=== PATIENT | male | born 1960 | race Caucasian/White ===

== ENCOUNTER → 2018-01-03 11:48 | Outpatient (CLI) | payer MEDICARE, MEDICAID, SELFPAY ==
[2018-01-03 13:18] LABS: Absolute Lymphocyte Count 1.21 X10^3/ul (0.83-4.51); Absolute Neutrophil Count 6.7 X10^3/uL (2.0-7.7); Basophil# 0.05 X10^3/uL; Basophil% 0.5 % (0-1); Eosinophil# 0.07 X10^3/uL; Eosinophils% 0.8 % (0-5); Hematocrit 40.9 % (40-54); Hemoglobin 13.3 g/dl (13.0-16.5); Lymphocyte # 1.21 X10^3/ul (4.0); Lymphocyte % 13.2 % (19-41); Mean Corp Hgb Conc 32.5 g/gl (32-36); Mean Corpuscular Hgb 34.2 pg (27.0-32.0); Mean Corpuscular Volume 105.1 fL (80-94); Mean Platelet Vol. 9.9 fl (6.2-12.0); Monocyte# 1.04 X10^3/uL; Monocyte% 11.4 % (0-10); Neutrophil # 6.73 X10^3/uL (2.7-7.7); Neutrophil % 73.7 % (47-70); Platelet Count 174 K/mm3 (150-450); RBC Distribution Width CV 14.8 % (11.6-14.6); RBC Distribution Width SD 56.9 fl (35.1-43.9); Red Blood Count 3.89 M/mm3 (4.6-6.2); White Blood Count 9.1 K/mm3 (4.4-11.0)
[2018-01-03 13:29] LABS: POSITIVE COUNT NO; POSITIVE DIFFERENTIAL NO; POSITIVE MORPHOLOGY NO
[2018-01-03 13:39] LABS: ALB/GLOB Ratio 1.1 RATIO (0.9-2.4); AST(SGOT) 29 U/L (15-37); Alanine Aminotransfer ALT/SGPT 33 U/L (16-61); Albumin, Serum 3.4 g/dL (3.2-5.0); Alkaline Phosphatase 87 U/L (45-117); Anion Gap 4 (5-15); BUN 21 mg/dL (7-18); BUN/Creat Ratio 20.4 RATIO (10-20); Chloride 106 mmol/L (98-107); Creatinine, Serum 1.03 mg/dL (0.70-1.30); EST Glomerular Filtration Rate 79 mL/min (>60); Est Glom Filt Rate - Afr Amer 96 mL/min (>60); Globulin 3.1 g/dL (2.2-4.2); Glucose 89 mg/dL (74-106); Potassium 4.5 mmol/L (3.5-5.1); Protein, Total 6.5 g/dL (6.4-8.2); Sodium Level 143 mmol/L (136-145); Thyroid Stim Hormone (TSH) 2.19 uIU/mL (0.358-3.74)
== END ==
PROVIDERS: Family Provider Family Medicine Geriatric Medicine; PCP Family Medicine Geriatric Medicine; Visit Provider Family Medicine Geriatric Medicine
DX: R53.83 Other fatigue (principal)
CPT/HCPCS: 36415; 80053; 84443; 85025

== ENCOUNTER → 2018-07-06 14:35 | Outpatient (CLI) | payer MEDICARE, MEDICAID, SELFPAY ==
[2018-07-06 16:15] LABS: Absolute Lymphocyte Count 1.03 X10^3/ul (0.83-4.51); Absolute Neutrophil Count 4.8 X10^3/uL (2.0-7.7); Basophil# 0.07 X10^3/uL; Eosinophil# 0.06 X10^3/uL; Eosinophils% 0.9 % (0-5); Hemoglobin 13.2 g/dl (13.0-16.5); Lymphocyte # 1.03 X10^3/ul (4.0); Lymphocyte % 14.9 % (19-41); Mean Corpuscular Hgb 35.3 pg (27.0-32.0); Mean Platelet Vol. 10.5 fl (6.2-12.0); Monocyte# 0.84 X10^3/uL; Monocyte% 12.1 % (0-10); Neutrophil # 4.84 X10^3/uL (2.7-7.7); Neutrophil % 69.9 % (47-70); Platelet Count 200 K/mm3 (150-450); RBC Distribution Width SD 50.3 fl (35.1-43.9); Red Blood Count 3.74 M/mm3 (4.6-6.2); White Blood Count 6.9 K/mm3 (4.4-11.0)
[2018-07-06 16:21] LABS: POSITIVE COUNT NO; POSITIVE DIFFERENTIAL NO; POSITIVE MORPHOLOGY NO
[2018-07-06 17:08] LABS: ALB/GLOB Ratio 0.9 RATIO (0.9-2.4); AST(SGOT) 31 U/L (15-37); Alanine Aminotransfer ALT/SGPT 31 U/L (16-61); Albumin, Serum 3.1 g/dL (3.2-5.0); Alkaline Phosphatase 69 U/L (45-117); Anion Gap 11 (5-15); BUN 14 mg/dL (7-18); BUN/Creat Ratio 13.2 RATIO (10-20); Calcium,Total 8.4 mg/dL (8.5-10.1); Chloride 107 mmol/L (98-107); Creatinine, Serum 1.06 mg/dL (0.70-1.30); EST Glomerular Filtration Rate 77 mL/min (>60); Est Glom Filt Rate - Afr Amer 93 mL/min (>60); Globulin 3.6 g/dL (2.2-4.2); Glucose 86 mg/dL (74-106); Potassium 4.5 mmol/L (3.5-5.1); Protein, Total 6.7 g/dL (6.4-8.2); Sodium Level 146 mmol/L (136-145); Thyroid Stim Hormone (TSH) 1.95 uIU/mL (0.358-3.74)
== END ==
PROVIDERS: Family Provider Family Medicine Geriatric Medicine; PCP Family Medicine Geriatric Medicine; Visit Provider Family Medicine Geriatric Medicine
DX: R53.83 Other fatigue (principal)
CPT/HCPCS: 36415; 80053; 84443; 85025

== ENCOUNTER → 2018-08-07 11:52 | Outpatient (CLI) | payer MEDICARE, MEDICAID, SELFPAY ==
--- NOTE | 2018-08-07 11:59 | VDLE_ITS ---
Reason For Study: LEG SWELLING RIGHT LEFT CFV is compressible, spontaneous, phasic, GSV is normal. competent and demonstrates normal CFV is partially compressible with augmentation. intraluminal echoes Procedure FV, POP V and T/P trunk are non-compressible Exam performed in department. with intraluminal echoes and absent blood A preliminary report was called and/or faxed flow signal. to Jhoana Painter. PTV is compressible. LT PerV is compressible. Interpretation Summary Acute deep vein thrombosis is noted in the left common femoral vein. Acute deep vein thrombosis is noted in the left femoral vein. Acute deep vein thrombosis is noted in the left popliteal vein. Acute deep vein thrombosis is noted in the left tibio-peroneal trunk. The left posterior tibial vein and peroneal vein are patent and compressible. The left greater saphenous vein appears patent and compressible segmentally. Ordering Physician: Mar Painter Referring Physician: Willard Delgadillo Chi Performed By: Fara Nieto RVT
== END ==
PROVIDERS: Family Provider Family Medicine Geriatric Medicine; PCP Family Medicine Geriatric Medicine
DX: R60.0 Localized edema (principal)
CPT/HCPCS: 93971

== ENCOUNTER 2018-08-07 12:51 | Emergency (ER) | payer MEDICARE, MEDICAID, SELFPAY ==
[2018-08-07 12:52] VITALS: BP 149/73; PULSE 56; RESP 12; TEMP 36.3; O2SAT 100; BMI 30.5
--- NOTE | 2018-08-07 13:50 | ED.VISSUMM ---
- ER Visit Summary Date of Service: 08/07/18 Chief Complaint: DVT History of Present Illness: The patient is a 57 M who per family had intermittent left ankle and leg swelling for the past several years. He has had worsening leg swelling for the past several months. Mom states it especially gets worse with activity and better with rest. He was seen by a childhood teacher today it was to orthopedics. An outpatient DVT study was ordered and positive. Patient was sent to the ER. Past history significant for reflux disease and Down syndrome. Physical Examination: Blood pressure is 149/73, temperature 97.3, heart rate 56, respiratory rate 12, pulse ox 100% on room air. Patient sitting upright in bed no acute distress. Heart is regular rate and rhythm. Lung sounds are clear. Abdomen is soft and nontender. Lower extremity examination reveals 2+ left lower extremity edema. Compression stockings in place. Strong distal pulses are noted. There is no focal neurologic deficits. Test Results: I did review the DVT study. Common femoral vein on the left is partially compressible with intraluminal echoes. The femoral vein, popliteal vein, and TP trunk are noncompressible. Emergency Department Course and Treatment: Patient had normal laboratory work performed approximately 1 month ago. I spoke with the patient's primary care physician, Dr. Delgadillo, who had not been made aware of these DVT findings. Patient be started on Xarelto and will follow up with Dr. Delgadillo in the office. I also spoke with social work who verified that his insurance will cover Xarelto. Treatment Plan: [] Disposition: Discharge Impression: Left leg DVT This note was generated with [employer] dictation software. It may contain incorrect words, spelling, and punctuation that were not noted in review of the chart prior to signing ED Disposition - Plan for ED Patient: Disposition: Home or Assisted Living Chief Complaint: Abn Labs Instructions: ED DVT Prescriptions: Rivaroxaban [Xarelto] 15 mg PO BID #42 tablet Referrals: Willard Delgadillo Chi, MD [Primary Care Provider] - 1 Week
[2018-08-07] MEDS: Rivaroxaban 15 MG Tablet PO (14:02)
[2018-08-07 14:03] VITALS: BP 140/86; PULSE 56; RESP 18; O2SAT 98
== END 2018-08-07 14:10 | disposition home or self-care (01) ==
PROVIDERS: Emergency Provider Emergency Medicine; Family Provider Family Medicine Geriatric Medicine; PCP Family Medicine Geriatric Medicine
DX: I82.412 Acute embolism and thrombosis of left femoral vein (principal); Q90.9 Down syndrome, unspecified; K21.9 Gastro-esophageal reflux disease without esophagitis; R60.0 Localized edema; Z86.718 Personal history of other venous thrombosis and embolism; Z79.899 Other long term (current) drug therapy
CPT/HCPCS: 93971; 99283

== ENCOUNTER → 2018-10-19 11:16 | Outpatient (CLI) | payer MEDICARE, MEDICAID, SELFPAY ==
--- NOTE | 2018-10-19 11:20 | VDLE_ITS ---
Reason For Study: Swelling - f/U DVT LLE RIGHT LEFT GSV is normal. GSV is normal. CFV is compressible, spontaneous, phasic, CFV is partially compressible with competent and demonstrates normal intraluminal echoes and normal color flow augmentation. and doppler signal. FVand POP Vare patent,compressible, FV, POP Vand T/P trunk are non- spontaneous, phasic and demonstrate compressible, non dilated with intraluminal INCOMPETENCY with augmentation. echoes and absent color flow and doppler T/P Trunk is compressible. signal. PTV is compressible. PTV is compressible. RT PerV is compressible. LT PerV is compressible. Procedure Exam performed in department. A preliminary report was called and/or faxed to Dr. Delgadillo. Interpretation Summary Chronic venous changes are noted in the left common femoral vein, femoral vein, popliteal vein, and tibio-peroneal trunk. The left femoral vein, popliteal vein, and tibio-peroneal trunk remain non- compressible and devoid of flow. The left posterior tibial vein and peroneal vein are patent and compressible. Deep veins of the right lower extremity are patent and compressible segmentally. There is no evidence of right lower extremity deep vein thrombosis. The right femoral vein and popliteal vein are incompetent. The great saphenous veins are patent and compressible bilaterally. Ordering Physician: Willard Delgadillo Referring Physician: Willard Delgadillo Chi Performed By: Fara Nieto RVT
[2018-10-19 12:35] LABS: Absolute Lymphocyte Count 1.17 X10^3/ul (0.83-4.51); Absolute Neutrophil Count 3.5 X10^3/uL (2.0-7.7); Basophil# 0.05 X10^3/uL; Basophil% 0.9 % (0-1); Eosinophil# 0.04 X10^3/uL; Eosinophils% 0.7 % (0-5); Hematocrit 41.5 % (40-54); Hemoglobin 13.9 g/dl (13.0-16.5); Lymphocyte # 1.17 X10^3/ul (4.0); Lymphocyte % 20.7 % (19-41); Mean Corp Hgb Conc 33.5 g/gl (32-36); Mean Corpuscular Volume 104.5 fL (80-94); Monocyte# 0.86 X10^3/uL; Monocyte% 15.2 % (0-10); Neutrophil # 3.52 X10^3/uL (2.7-7.7); Neutrophil % 62.1 % (47-70); Platelet Count 212 K/mm3 (150-450); RBC Distribution Width CV 13.6 % (11.6-14.6); RBC Distribution Width SD 51.5 fl (35.1-43.9); Red Blood Count 3.97 M/mm3 (4.6-6.2); White Blood Count 5.7 K/mm3 (4.4-11.0)
[2018-10-19 12:38] LABS: POSITIVE COUNT NO; POSITIVE DIFFERENTIAL NO; POSITIVE MORPHOLOGY NO
[2018-10-19 12:44] LABS: Anion Gap 7 (5-15); BUN 17 mg/dL (7-18); Calcium,Total 8.4 mg/dL (8.5-10.1); Chloride 106 mmol/L (98-107); Creatinine, Serum 1.06 mg/dL (0.70-1.30); EST Glomerular Filtration Rate 77 mL/min (>60); Est Glom Filt Rate - Afr Amer 93 mL/min (>60); Glucose 95 mg/dL (74-106); Potassium 4.4 mmol/L (3.5-5.1); Sodium Level 142 mmol/L (136-145)
== END ==
PROVIDERS: Family Provider Family Medicine Geriatric Medicine; PCP Family Medicine Geriatric Medicine; Referring Provider Family Medicine Geriatric Medicine; Visit Provider Family Medicine Geriatric Medicine
DX: R60.0 Localized edema (principal)
CPT/HCPCS: 36415; 80048; 85025; 93970

== ENCOUNTER → 2018-10-27 11:10 | Outpatient (CLI) | payer MEDICARE, MEDICAID, SELFPAY ==
[2018-10-27 12:27] LABS: Absolute Lymphocyte Count 1.12 X10^3/ul (0.83-4.51); Absolute Neutrophil Count 4.3 X10^3/uL (2.0-7.7); Basophil# 0.06 X10^3/uL; Eosinophil# 0.02 X10^3/uL; Eosinophils% 0.3 % (0-5); Hematocrit 43.4 % (40-54); Hemoglobin 14.6 g/dl (13.0-16.5); Lymphocyte # 1.12 X10^3/ul (4.0); Lymphocyte % 17.8 % (19-41); Mean Corp Hgb Conc 33.6 g/gl (32-36); Mean Corpuscular Hgb 34.8 pg (27.0-32.0); Mean Corpuscular Volume 103.6 fL (80-94); Mean Platelet Vol. 10.1 fl (6.2-12.0); Monocyte% 12.7 % (0-10); Neutrophil # 4.26 X10^3/uL (2.7-7.7); Neutrophil % 67.7 % (47-70); Platelet Count 221 K/mm3 (150-450); RBC Distribution Width CV 13.2 % (11.6-14.6); RBC Distribution Width SD 49.2 fl (35.1-43.9); Red Blood Count 4.19 M/mm3 (4.6-6.2); White Blood Count 6.3 K/mm3 (4.4-11.0)
[2018-10-27 12:48] LABS: POSITIVE COUNT NO; POSITIVE DIFFERENTIAL NO; POSITIVE MORPHOLOGY NO
[2018-10-27 14:04] LABS: Anion Gap 8 (5-15); BUN 19 mg/dL (7-18); BUN/Creat Ratio 15.6 RATIO (10-20); Calcium,Total 8.6 mg/dL (8.5-10.1); Chloride 103 mmol/L (98-107); Creatinine, Serum 1.22 mg/dL (0.70-1.30); EST Glomerular Filtration Rate 65 mL/min (>60); Est Glom Filt Rate - Afr Amer 79 mL/min (>60); Glucose 103 mg/dL (74-106); Potassium 4.3 mmol/L (3.5-5.1); Sodium Level 141 mmol/L (136-145)
--- OUTSIDE RECORDS SUMMARY | 2018-12-13 03:55 | XMS RPT_ITS ---
:1960 Author Organization OHIP Support Name Relationship Address Phone JERONIMO DAVENPORT/PITER Unavailable [address] + [place] [address] [employer] Unavailable [address] + [place] [address] ISSAC, JERONIMO/PITER Unavailable [address] + [place] [address] [employer] Unavailable [address] + [place] [address] ISSAC, JERONIMO/PITER Unavailable [address] + [place] [address] [employer] Unavailable [address] + [place] [address] ISSAC, JERONIMO/PITER Unavailable [address] + [place] [address] [employer] Unavailable [address] + [place] [address] ISSAC, JERONIMO/PITER Unavailable [address] + [place] [address] [employer] Unavailable [address] + [place] [address] ISSAC, JERONIMO/PITER Unavailable [address] + [place] [address] [employer] Unavailable [address] + [place] [address] ISSAC, JERONIMO/PITER Unavailable [address] + [place] [address] [employer] Unavailable [address] + [place] [address] ISSAC, JERONIMO/PITER Unavailable [address] + [place] [address] [employer] Unavailable [address] + [place] [address] Care Team Providers Name Role Phone Elie, Willard Chi Attending Unavailable Elie, Willard Chi Referring Unavailable Elie, Willard Chi Primary Care Unavailable Elie, Willard Chi Attending Unavailable Elie, Willard Chi Primary Care Unavailable Elie, Willard Chi Attending Unavailable Elie, Willard Chi Primary Care Unavailable Elie, Willard Chi Attending Unavailable Elie, Willard Chi Primary Care Unavailable JASWINDER SHERIDAN Attending Unavailable JASWINDER SHERIDAN Referring Unavailable Elie, Willard Chi Primary Care Unavailable JASWINDER SHERIDAN Consulting Unavailable Elie, Willard Chi Primary Care Unavailable Serg Egan Attending Unavailable Elie, Willard Chi Primary Care Unavailable Monique Alfonso Attending Unavailable Elie, Willard Chi Attending Unavailable Elie, Willard Chi Referring Unavailable Elie, Willard Chi Primary Care Unavailable PROBLEMS PROBLEMS DATE TYPE CONDITION / CODE ATTENDING STATUS SOURCE 10/19/2018 Unknown R60.0 - Localized Elie, Willard Chi Active [place] edema / Community R60.0(ICD-10) Hospital Repository 10/19/2018 Unknown R60.9 - Edema, Elie, Willard Chi Active [place] unspecified / Community R60.9(ICD-10) Hospital Repository 08/07/2018 Unknown Z86.718 - JASWINDER SHERIDAN Active [place] Personal history Community of other venous Hospital thrombosis and Repository embolism / Z86.718(ICD-10) 01/03/2018 Unknown R53.83 - Other Elie, Willard Chi Active [place] fatigue / Community R53.83(ICD-10) Hospital Repository PROCEDURES PROCEDURES No Procedure Records FoundRESULTS RESULTS EMERGENCY DEPARTMENT Observed: 11/11/2018 Status: F Source: [place] SUMMARY 3:55 PM [facility] HOSPITAL REPOSITORY [facility] Medical Records Department [address] [place] [address] Emergency Department Summary 11/11/18 1011 MR#: [id number] Acct: [id number] Name: PAWAN DAVENPORT Rep #: [id number] : 1960 58 From: Serg Egan MD PCP: Willard Delgadillo MD, Chi Status: DEP ER - ER Visit Summary Date of Service: 11/11/18 Chief Complaint: Nausea, vomit History of Present Illness: The patient is a 58 M presents to the emergency department nausea and vomiting. The patient is otherwise healthy. He does have a history of Down syndrome, but has had no prior abdominal surgery. Mother states that after [place], he had 3 episodes of vomiting. He was then complaining of being dizzy. States the vomiting stopped and he seemed to do okay, but then began to vomit again yesterday. He had 3 more episodes. He still moving his bowels without issue. He just told that he felt lightheaded. He has not had fevers or chills. He denies any significant pain. There is been no blood in the emesis. He is on Eliquis for history of DVT, but has been taking it without issue. 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 He has not had fevers or chills. I obtained an abdominal series which showed no evidence of obstruction. His labs are unremarkable. Of fluids and Zofran, he was improved but was still complaining of dizziness. With his vomiting and the fact that he is on anticoagulants, I did want to rule out acute intracranial abnormality. Head CT was obtained which was unremarkable. On reevaluation with meclizine, he states that his dizziness has resolved. I do not suspect posterior stroke or other dangerous process. I do feel that the patient is a for outpatient therapy. He was able to ambulate. The patient be discharged home. Treatment Plan: [] Disposition: Discharge Impression: 1. Nausea and vomiting This note was generated with Hojo.plation software. It may contain incorrect words, spelling, and punctuation that were not noted in review of the chart prior to signing ED Disposition - Plan for ED Patient: Disposition: Home or Assisted Living Chief Complaint: Abd Pain Instructions: ED Dizziness UKO, ED Nausea Vomiting Prescriptions: RX: Meclizine HCl 25 mg PO Q8H PRN PRN #30 tab PRN Reason: Dizziness Ondansetron [Zofran Odt] 4 mg PO Q8H PRN PRN #10 tab PRN Reason: Nausea Referrals: Willard Delgadillo Chi, MD [Primary Care Provider] - What to do if you have Problems For any increased pain, shortness of breath, bleeding, nausea or vomiting, chest pain, or any unexpected problems, contact your Primary Care Provider. Call [facility] ([phone]) or report to the closest Emergency Room. Call 911 if necessary. 11/11/18 1555 <Electronically signed by Serg Egan MD> Date Serg Egan MD Cosigner Signature (If Indicated): Date CC: Willard Delgadillo MD BRAIN/HEAD WITHOUT Observed: 11/11/2018 Status: F Source: [facility] CONTRAST 11:18 AM [facility] REPOSITORY [facility] Imaging Services [address] [place] [address] Brain/Head without Contrast MR#: [id number] Acct: [id number] Name: PAWAN DAVENPORT Rep #: [id number] : 1960 58 From: Nino Harrington MD PCP: Willard Delgadillo MD, Chi Status: REG ER Study: Brain/Head without Contrast Date of Exam: 11/11/18 Exam# [id number] Ordering Dr: Serg Egan MD STUDY: CT BRAIN WITHOUT CONTRAST REASON FOR EXAM: Male, 58 years old. Dizziness and vomiting. RADIATION DOSAGE (If Supplied By Facility): CTDIvol = ( 44.99 ) mGy, DLP = ( 745.49 ) mGycm TECHNIQUE: Transaxial CT imaging of the brain was performed without administration of intravenous contrast material. Individualized dose optimization techniques were used for this CT. COMPARISON: None. FINDINGS: Normal soft tissue structures. Normal calvarium. Normal size ventricles and extra-axial spaces for the patient's age. Normal white matter tracts of the cerebral hemispheres. Normal basal ganglia and thalami. Normal brainstem. Normal cerebellum. There is no intracranial hemorrhage. There are no findings of an acute ischemic infarction. Normal visualized paranasal sinuses. CT/Brain/Head without Contrast IMPRESSION: Normal unenhanced CT scan of the brain. Electronically Signed: Nino Harrington MD at 11:50 EST , Service support , CC: Serg Egan MD; Willard Delgadillo MD Conference Director: Signed CBC W/DIFF, AUTOMATED Collected: 11/11/2018 Status: F Source: [place] 10:20 AM [facility] REPOSITORY TYPE CODE TESTS RESULT OUT OF RANGE REFERENCE UNITS LAB L100.1000 4.4-11.0 K/mm3 Normal WBC 6.2 LAB L100.1200 4.6-6.2 M/mm3 Low RBC 4.33 LAB L100.1300 13.0-16.5 g/dl Normal HGB 15.6 LAB L100.1400 40-54 % Normal HCT 43.7 LAB L100.1500 80-94 fL High MCV 100.9 LAB L100.1600 27.0-32.0 pg High MCH 36.0 LAB L100.1700 32-36 g/gl Normal MCHC 35.7 LAB L100.1810 11.6-14.6 % Normal RDW CV 13.1 LAB L100.1820 35.1-43.9 fl High RDW SD 48.6 LAB L100.1900 150-450 K/mm3 Normal PLT 243 LAB L100.2000 6.2-12.0 fl Normal MPV 9.3 LAB L100.2100 47-70 % Normal NEUT% 56.9 LAB L100.2200 19-41 % Normal LY% 27.7 LAB L100.2300 0-10 % High MONO% 12.5 LAB L100.2400 0-5 % Normal EO% 1.6 LAB L100.2500 0-1 % Normal BASO% 1.0 LAB L100.2550 0.0-0.9 % Normal IM GRAN % 0.300 Result Comment: IG% - Immature Granulocytes (promyelocytes, myelocytes and metamyelocytes) > 1% indicates that a LEFT SHIFT is Present. LAB L100.2620 2.0-7.7 X10 3/uL Normal Absolute Neut 3.5 LAB L100.2720 0.83-4.51 X10 3/ul Normal Absolute Lymph 1.71 Performed By: #### L100.0100 #### [facility] [address] [place], [address] COMPREHENSIVE METABOLIC Collected: 11/11/2018 Status: F Source: [facility] 10:20 AM [facility] REPOSITORY TYPE CODE TESTS RESULT OUT OF RANGE REFERENCE UNITS LAB L501.0100 74-106 mg/dL High GLU 129 Result Comment: Fasting Glucose result greater than or equal to 126 mg/dL suggests DIABETES MELLITUS per A.D.A. criteria. Please note revised GLUCOSE reference range effective 2017. LAB L501.1000 7-18 mg/dL Normal BUN 16 LAB L501.1100 0.70-1.30 mg/dL Normal CREAT,SERUM 1.29 Result Comment: The validity of the calculated GFR AND GFRAA in patients over 70 years has not been determined. Clinical correlation is essential. LAB L501.1110 >60 mL/min Normal EST GFR 61 Result Comment: Non- GFR Calc LAB L501.1115 >60 mL/min Normal EST GFR - AA 74 Result Comment: GFR Calc LAB L501.1255 ml/min Normal Estimated CRCL 52.90 LAB L501.1300 10-20 RATIO Normal BUN/CRE 12.4 LAB L501.1500 6.4-8. g/dL Normal 2 T PROT 7.1 LAB L501.1800 3.2-5. g/dL Normal 0 ALB 3.5 LAB L501.1950 2.2-4. g/dL Normal 2 GLOB 3.6 LAB L501.2000 0.9-2. RATIO Normal 4 A/G 1.0 LAB L501.2200 8.5-10 mg/dL Normal .1 CA 8.5 LAB L501.4100 15-37 U/L Normal AST 37 LAB L501.4305 45-117 U/L Normal ALK P 93 LAB L501.4405 16-61 U/L Normal ALT 46 LAB L501.4600 0.20-1 mg/dL Normal .00 T BILI 0.60 LAB L501.5300 136-14 mmol/L Normal 5 NA 140 LAB L501.5600 3.5-5. mmol/L Normal 1 K 3.9 LAB L501.5900 98-107 mmol/L Normal CL 105 LAB L501.6100 21.0-3 mmol/L Normal 2.0 CO2 28.0 LAB L501.6200 5-15 Normal GAP 7 Performed By: #### L500.4050, L501.2450 #### [facility] [address] [place], [address] LIPASE Collected: 11/11/2018 Status: F Source: [place] 10:20 AM [facility] REPOSITORY TYPE CODE TESTS RESULT OUT OF RANGE REFERENCE UNITS LAB L501.2450 73-393 U/L Normal LIPASE 81 Performed By: #### L500.4050, L501.2450 #### [facility] [address] [place], [address] ACUTE ABDOMEN INC Observed: 11/11/2018 Status: F Source: [facility] 10:09 AM [facility] REPOSITORY [facility] Imaging Services [address] [place] [address] Acute Abdomen Inc Chest MR#: [id number] Acct: [id number] Name: PAWAN DAVENPORT Rep #: [id number] : 1960 M 58 From: Yoandy Warner MD PCP: Elie BARFIELD,TasteBook Status: REG ER Study: Acute Abdomen Inc Chest Date of Exam: 11/11/18 Exam# [id number] Ordering Dr: Serg Egan MD STUDY: X-RAY - ACUTE ABDOMINAL SERIES REASON FOR EXAM: Male, 58 years old. Vomiting, nausea TECHNIQUE: Single view of the chest. Supine, and erect view(s) of the abdomen were obtained. 4 views. COMPARISON: None. FINDINGS: The lungs are clear and expanded. Normal size heart. Normal mediastinum and delvis. Normal visualized pulmonary arteries. Normal visualized aortic arch and descending thoracic aorta. There is a non-specific bowel gas pattern. The soft tissue structures of the abdomen and pelvis are unremarkable. There are diffuse degenerative changes of the visualized lumbar spine. RAD/Acute Abdomen Inc Chest IMPRESSION: No acute findings Electronically Signed: Enoch Warner MD at 11:39 EST , Service support , CC: Serg Egan MD; Willard Delgadillo MD Conference Director: Signed VENOUS DUPLEX LOWER Observed: 11/01/2018 Status: F Source: [place] EXTREMITY 6:40 PM [facility] REPOSITORY [facility] Cardiovascular Services [address] [place] [address] Venous Duplex US, Unilateral 10/30/18 1244 MR#: [id number] Acct: [id number] Name: PAWAN DAVENPORT Rep #: [id number] : 1960 58 From: David Grossman MD Attending Dr: Elie BARFIELD,Willard Wilde Status: REG CLI Ordering Dr: Willard Delgadillo MD Date: 10/30/18 Location: [facility] Sex: M C Admitted: Reason For Study: EDEMA Procedure LEFT Exam performed in department. CFV is partially compressible with A preliminary report was called and/or faxed intraluminal echoes and normal color flow to Dr Delgadillo. doppler signal. FV, POP V and T/P Trunk are noncompressible and not dilated, with intraluminal echoes and absent color flow and doppler signal. PTV is compressible. PeroV is compressible. GSV is normal. Interpretation Summary Chronic venous changes are noted in the left common femoral vein, femoral vein, popliteal vein, and tibio-peroneal trunk. The left femoral vein, popliteal vein, and tibio-peroneal trunk remain non- compressible and devoid of flow. The left posterior tibial vein and peroneal vein are patent and compressible. The left greater saphenous vein appears patent and compressible segmentally. There has been no change in the left lower extremity since a prior study on 10/19/2018. Ordering Physician: Willard Delgadillo Referring Physician: Willard Delgadillo Chi Performed By: Betty Dietz, RDCS, RVT 11/01/181839 Date David Grossman MD CC: Willard Delgadillo MD Date Dictated: 10/30/18 1244 Date Transcribed: 11/01/181839 Conference Director: Signed CBC W/DIFF, AUTOMATED Collected: 10/27/2018 Status: F Source: [place] 11:13 AM [facility] REPOSITORY TYPE CODE TESTS RESULT OUT OF RANGE REFERENCE UNITS LAB L100.1000 4.4-11.0 K/mm3 Normal WBC 6.3 LAB L100.1200 4.6-6.2 M/mm3 Low RBC 4.19 LAB L100.1300 13.0-16.5 g/dl Normal HGB 14.6 LAB L100.1400 40-54 % Normal HCT 43.4 LAB L100.1500 80-94 fL High MCV 103.6 LAB L100.1600 27.0-32.0 pg High MCH 34.8 LAB L100.1700 32-36 g/gl Normal MCHC 33.6 LAB L100.1810 11.6-14.6 % Normal RDW CV 13.2 LAB L100.1820 35.1-43.9 fl High RDW SD 49.2 LAB L100.1900 150-450 K/mm3 Normal PLT 221 LAB L100.2000 6.2-12.0 fl Normal MPV 10.1 LAB L100.2100 47-70 % Normal NEUT% 67.7 LAB L100.2200 19-41 % Low LY% 17.8 LAB L100.2300 0-10 % High MONO% 12.7 LAB L100.2400 0-5 % Normal EO% 0.3 LAB L100.2500 0-1 % Normal BASO% 1.0 LAB L100.2550 0.0-0.9 % Normal IM GRAN % 0.500 Result Comment: IG% - Immature Granulocytes (promyelocytes, myelocytes and metamyelocytes) > 1% indicates that a LEFT SHIFT is Present. LAB L100.2620 2.0-7.7 X10 3/uL Normal Absolute Neut 4.3 LAB L100.2720 0.83-4.51 X10 3/ul Normal Absolute Lymph 1.12 Performed By: #### L100.0100 #### [facility] [address] [place], [address] BASIC METABOLIC Collected: 10/27/2018 Status: F Source: [facility] PROFILE ([facility]) 11:13 AM [facility] REPOSITORY TYPE CODE TESTS RESULT OUT OF RANGE REFERENCE UNITS LAB L501.0100 74-106 mg/dL Normal GLU 103 Result Comment: Fasting Glucose result from 100 to 125 mg/dL suggests IMPAIRED HOMEOSTASIS per A.D.A. criteria. Please note revised GLUCOSE reference range effective 2017. LAB L501.1000 7-18 mg/dL High BUN 19 LAB L501.1100 0.70-1.30 mg/dL Normal CREAT,SERUM 1.22 Result Comment: The validity of the calculated GFR AND GFRAA in patients over 70 years has not been determined. Clinical correlation is essential. LAB L501.1110 >60 mL/min Normal EST GFR 65 Result Comment: Non- GFR Calc LAB L501.1115 >60 mL/min Normal EST GFR - AA 79 Result Comment: GFR Calc LAB L501.1300 10-20 RATIO Normal BUN/CRE 15.6 LAB L501.2200 8.5-10.1 mg/dL CA Normal 8.6 LAB L501.5300 136-145 mmol/L NA Normal 141 LAB L501.5600 3.5-5.1 mmol/L K Normal 4.3 LAB L501.5900 98-107 mmol/L CL Normal 103 LAB L501.6100 21.0-32.0 mmol/L Normal CO2 30.0 LAB L501.6200 5-15 Normal GAP 8 Performed By: #### L500.2500 #### [facility] [address] [place], [address] VENOUS DUPLEX LOWER Observed: 10/21/2018 Status: F Source: [place] EXTREMITY 10:30 AM [facility] REPOSITORY [facility] Cardiovascular Services [address] [place] [address] Venous Duplex US - Kenney Extrem 10/19/18 1122 MR#: [id number] Acct: [id number] Name: PAWAN DAVENPORT Rep #: [id number] : 1960 58 From: David Grossman MD Attending Dr: Elie BARFIELD,Willard Wilde Status: REG CLI Ordering Dr: Willadr Delgadillo MD Date: 10/19/18 Location: [facility] Sex: M C Admitted: Reason For Study: Swelling - f/U DVT LLE RIGHT LEFT GSV is normal. GSV is normal. CFV is compressible, spontaneous, phasic, CFV is partially compressible with competent and demonstrates normal intraluminal echoes and normal color flow augmentation. and doppler signal. FVand POP Vare patent,compressible, FV, POP Vand T/P trunk are non- spontaneous, phasic and demonstrate compressible, non dilated with intraluminal INCOMPETENCY with augmentation. echoes and absent color flow and doppler T/P Trunk is compressible. signal. PTV is compressible. PTV is compressible. RT PerV is compressible. LT PerV is compressible. Procedure Exam performed in department. A preliminary report was called and/or faxed to Dr. Delgadillo. Interpretation Summary Chronic venous changes are noted in the left common femoral vein, femoral vein, popliteal vein, and tibio-peroneal trunk. The left femoral vein, popliteal vein, and tibio-peroneal trunk remain non- compressible and devoid of flow. The left posterior tibial vein and peroneal vein are patent and compressible. Deep veins of the right lower extremity are patent and compressible segmentally. There is no evidence of right lower extremity deep vein thrombosis. The right femoral vein and popliteal vein are incompetent. The great saphenous veins are patent and compressible bilaterally. Ordering Physician: Willard Delgadillo Referring Physician: Willard Delgadillo Chi Performed By: Fara Nieto RVT 10/21/18 1029 Date David Grossman MD CC: Willard Delgadillo MD Date Dictated: 10/19/18 1122 Date Transcribed: 10/21/18 1029 Conference Director: Signed CBC W/DIFF, AUTOMATED Collected: 10/19/2018 Status: F Source: [place] 12:10 PM [facility] REPOSITORY TYPE CODE TESTS RESULT OUT OF RANGE REFERENCE UNITS LAB L100.1000 4.4-11.0 K/mm3 Normal WBC 5.7 LAB L100.1200 4.6-6.2 M/mm3 Low RBC 3.97 LAB L100.1300 13.0-16.5 g/dl Normal HGB 13.9 LAB L100.1400 40-54 % Normal HCT 41.5 LAB L100.1500 80-94 fL High MCV 104.5 LAB L100.1600 27.0-32.0 pg High MCH 35.0 LAB L100.1700 32-36 g/gl Normal MCHC 33.5 LAB L100.1810 11.6-14.6 % Normal RDW CV 13.6 LAB L100.1820 35.1-43.9 fl High RDW SD 51.5 LAB L100.1900 150-450 K/mm3 Normal PLT 212 LAB L100.2000 6.2-12.0 fl Normal MPV 10.0 LAB L100.2100 47-70 % Normal NEUT% 62.1 LAB L100.2200 19-41 % Normal LY% 20.7 LAB L100.2300 0-10 % High MONO% 15.2 LAB L100.2400 0-5 % Normal EO% 0.7 LAB L100.2500 0-1 % Normal BASO% 0.9 LAB L100.2550 0.0-0.9 % Normal IM GRAN % 0.400 Result Comment: IG% - Immature Granulocytes (promyelocytes, myelocytes and metamyelocytes) > 1% indicates that a LEFT SHIFT is Present. LAB L100.2620 2.0-7.7 X10 3/uL Normal Absolute Neut 3.5 LAB L100.2720 0.83-4.51 X10 3/ul Normal Absolute Lymph 1.17 Performed By: #### L100.0100 #### [facility] [address] [place], [address] BASIC METABOLIC Collected: 10/19/2018 Status: F Source: [facility] PROFILE ([facility]) 12:10 PM [facility] REPOSITORY TYPE CODE TESTS RESULT OUT OF RANGE REFERENCE UNITS LAB L501.0100 74-106 mg/dL Normal GLU 95 Result Comment: Please note revised GLUCOSE reference range effective 2017. LAB L501.1000 7-18 mg/dL Normal BUN 17 LAB L501.1100 0.70-1.30 mg/dL Normal CREAT,SERUM 1.06 Result Comment: The validity of the calculated GFR AND GFRAA in patients over 70 years has not been determined. Clinical correlation is essential. LAB L501.1110 >60 mL/min Normal EST GFR 77 Result Comment: Non- GFR Calc LAB L501.1115 >60 mL/min Normal EST GFR - AA 93 Result Comment: GFR Calc LAB L501.1300 10-20 RATIO Normal BUN/CRE 16.0 LAB L501.2200 8.5-10.1 mg/dL Low CA 8.4 LAB L501.5300 136-145 mmol/L NA Normal 142 LAB L501.5600 3.5-5.1 mmol/L K Normal 4.4 LAB L501.5900 98-107 mmol/L CL Normal 106 LAB L501.6100 21.0-32.0 mmol/L Normal CO2 29.0 LAB L501.6200 5-15 Normal GAP 7 Performed By: #### L500.2500 #### [facility] [address] [place], [address] VENOUS DUPLEX LOWER Observed: 08/08/2018 Status: F Source: [place] EXTREMITY 2:59 PM [facility] REPOSITORY [facility] Cardiovascular Services [address] [place] [address] Venous Duplex US, Unilateral 08/07/18 1204 MR#: [id number] Acct: [id number] Name: PAWAN DAVENPORT Rep #: [id number] : 1960 57 From: David Grossman MD Attending Dr: DANIELA PALMER Status: REG CLI Ordering Dr: DANIELA PALMER Date: 08/07/18 Location: [facility] Sex: M C Admitted: Reason For Study: LEG SWELLING RIGHT LEFT CFV is compressible, spontaneous, phasic, GSV is normal. competent and demonstrates normal CFV is partially compressible with augmentation. intraluminal echoes Procedure FV, POP V and T/P trunk are non-compressible Exam performed in department. with intraluminal echoes and absent blood A preliminary report was called and/or faxed flow signal. to Jhoana Palmer. PTV is compressible. LT PerV is compressible. Interpretation Summary Acute deep vein thrombosis is noted in the left common femoral vein. Acute deep vein thrombosis is noted in the left femoral vein. Acute deep vein thrombosis is noted in the left popliteal vein. Acute deep vein thrombosis is noted in the left tibio-peroneal trunk. The left posterior tibial vein and peroneal vein are patent and compressible. The left greater saphenous vein appears patent and compressible segmentally. Ordering Physician: Daniela Palmer Referring Physician: Willard Delgadillo Chi Performed By: Fara Nieto RVT 08/08/18 1458 Date David Grossman MD CC: DANIELA PALMER; OUT OF TOWN DOCTOR; Willard Delgadillo MD Date Dictated: 08/07/18 1204 Date Transcribed: 08/08/181457 Conference Director: Signed EMERGENCY DEPARTMENT Observed: 08/07/2018 Status: F Source: [facility] SUMMARY 4:19 PM [facility] REPOSITORY [facility] Medical Records Department [address] [place] [address] Emergency Department Summary 08/07/18 1350 MR#: [id number] Acct: [id number] Name: PAWAN DAVENPORT Rep #: [id number] : 1960 57 From: Monique Alfonso MD PCP: Willard Delgadillo MD, Chi Status: DEP ER - ER Visit Summary Date of Service: 08/07/18 Chief Complaint: DVT History of Present Illness: The patient is a 57 M who per family had intermittent left ankle and leg swelling for the past several years. He has had worsening leg swelling for the past several months. Mom states it especially gets worse with activity and better with rest. He was seen by a nuisance wildlife control operator today it was to orthopedics. An outpatient DVT study was ordered and positive. Patient was sent to the ER. Past history significant for reflux disease and Down syndrome. Physical Examination: Blood pressure is 149/73, temperature 97.3, heart rate 56, respiratory rate 12, pulse ox 100% on room air. Patient sitting upright in bed no acute distress. Heart is regular rate and rhythm. Lung sounds are clear. Abdomen is soft and nontender. Lower extremity examination reveals 2+ left lower extremity edema. Compression stockings in place. Strong distal pulses are noted. There is no focal neurologic deficits. Test Results: I did review the DVT study. Common femoral vein on the left is partially compressible with intraluminal echoes. The femoral vein, popliteal vein, and TP trunk are noncompressible. Emergency Department Course and Treatment: Patient had normal laboratory work performed approximately 1 month ago. I spoke with the patient's primary care physician, Dr. Delgadillo, who had not been made aware of these DVT findings. Patient be started on Xarelto and will follow up with Dr. Delgadillo in the office. I also spoke with social work who verified that his insurance will cover Xarelto. Treatment Plan: [] Disposition: Discharge Impression: Left leg DVT This note was generated with [employer]oco [employer] dictation software. It may contain incorrect words, spelling, and punctuation that were not noted in review of the chart prior to signing ED Disposition - Plan for ED Patient: Disposition: Home or Assisted Living Chief Complaint: Abn Labs Instructions: ED DVT Prescriptions: Rivaroxaban [Xarelto] 15 mg PO BID #42 tablet Referrals: Willard Delgadillo Chi, MD [Primary Care Provider] - 1 Week What to do if you have Problems For any increased pain, shortness of breath, bleeding, nausea or vomiting, chest pain, or any unexpected problems, contact your Primary Care Provider. Call [facility] ([phone]) or report to the closest Emergency Room. Call 911 if necessary. 08/07/18 9504 <Electronically signed by Monique Alfonso MD> Date Monique Alfonso MD Cosigner Signature (If Indicated): Date CC: Willard Delgadillo MD DISCHARGE INSTRUCTION Observed: 08/07/2018 Status: F Source: RONA 1:52 PM [facility] REPOSITORY [facility] Medical Records Department [address] [place] [address] Discharge Instruction 08/07/18 1350 MR#: [id number] Acct: [id number] Name: PAWAN DAVENPORT Rep #: [id number] : 1960 57 From: Monique Alfonso MD PCP: Willard Delgadillo MD, Chi Status: REG ER ED Disposition - Plan for ED Patient: Disposition: Home or Assisted Living Chief Complaint: Abn Labs Instructions: ED DVT Prescriptions: Rivaroxaban [Xarelto] 15 mg PO BID #42 tablet Referrals: Willard Delgadillo Chi, MD [Primary Care Provider] - 1 Week What to do if you have Problems For any increased pain, shortness of breath, bleeding, nausea or vomiting, chest pain, or any unexpected problems, contact your Primary Care Provider. Call [facility] ([phone]) or report to the closest Emergency Room. Call 911 if necessary. 08/07/18 1352 <Electronically signed by Monique Alfonso MD> Date Monique Alfonso MD Cosigner Signature (If Indicated): Date CC: Willard Delgadillo MD CBC W/DIFF, AUTOMATED Collected: 07/06/2018 Status: F Source: [place] 2:39 PM [facility] REPOSITORY TYPE CODE TESTS RESULT OUT OF RANGE REFERENCE UNITS LAB L100.1000 4.4-11.0 K/mm3 Normal WBC 6.9 LAB L100.1200 4.6-6.2 M/mm3 Low RBC 3.74 LAB L100.1300 13.0-16.5 g/dl Normal HGB 13.2 LAB L100.1400 40-54 % Normal HCT 40.0 LAB L100.1500 80-94 fL High MCV 107.0 LAB L100.1600 27.0-32.0 pg High MCH 35.3 LAB L100.1700 32-36 g/gl Normal MCHC 33.0 LAB L100.1810 11.6-14.6 % Normal RDW CV 13.0 LAB L100.1820 35.1-43.9 fl High RDW SD 50.3 LAB L100.1900 150-450 K/mm3 Normal PLT 200 LAB L100.2000 6.2-12.0 fl Normal MPV 10.5 LAB L100.2100 47-70 % Normal NEUT% 69.9 LAB L100.2200 19-41 % Low LY% 14.9 LAB L100.2300 0-10 % High MONO% 12.1 LAB L100.2400 0-5 % Normal EO% 0.9 LAB L100.2500 0-1 % Normal BASO% 1.0 LAB L100.2550 0.0-0.9 % High IM GRAN % 1.200 Result Comment: IG% - Immature Granulocytes (promyelocytes, myelocytes and metamyelocytes) > 1% indicates that a LEFT SHIFT is Present. LAB L100.2620 2.0-7.7 X10 3/uL Normal Absolute Neut 4.8 LAB L100.2720 0.83-4.51 X10 3/ul Normal Absolute Lymph 1.03 Performed By: #### L100.0100 #### [facility] [address] [place], [address] COMPREHENSIVE METABOLIC Collected: 07/06/2018 Status: F Source: [facility] 2:39 PM [facility] REPOSITORY TYPE CODE TESTS RESULT OUT OF RANGE REFERENCE UNITS LAB L501.0100 74-106 mg/dL Normal GLU 86 Result Comment: Please note revised GLUCOSE reference range effective 2017. LAB L501.1000 7-18 mg/dL Normal BUN 14 LAB L501.1100 0.70-1.30 mg/dL Normal CREAT,SERUM 1.06 Result Comment: The validity of the calculated GFR AND GFRAA in patients over 70 years has not been determined. Clinical correlation is essential. LAB L501.1110 >60 mL/min Normal EST GFR 77 Result Comment: Non- GFR Calc LAB L501.1115 >60 mL/min Normal EST GFR - AA 93 Result Comment: GFR Calc LAB L501.1300 10-20 RATIO Normal BUN/CRE 13.2 LAB L501.1500 6.4-8.2 g/dL T Normal PROT 6.7 LAB L501.1800 3.2-5.0 g/dL Low ALB 3.1 LAB L501.1950 2.2-4.2 g/dL Normal GLOB 3.6 LAB L501.2000 0.9-2.4 RATIO Normal A/G 0.9 LAB L501.2200 8.5-10.1 mg/dL Low CA 8.4 LAB L501.4100 15-37 U/L Normal AST 31 LAB L501.4305 45-117 U/L Normal ALK P 69 LAB L501.4405 16-61 U/L Normal ALT 31 LAB L501.4600 0.20-1.00 mg/dL T Normal BILI 0.40 LAB L501.5300 136-145 mmol/L High NA 146 LAB L501.5600 3.5-5.1 mmol/L K Normal 4.5 LAB L501.5900 98-107 mmol/L CL Normal 107 LAB L501.6100 21.0-32.0 mmol/L Normal CO2 28.0 LAB L501.6200 5-15 Normal GAP 11 Performed By: #### L500.4050, L501.9520 #### [facility] [address] [place], [address] THYROID STIM HORMONE Collected: 07/06/2018 Status: F Source: RONA (TSH) 2:39 PM [facility] REPOSITORY TYPE CODE TESTS RESULT OUT OF RANGE REFERENCE UNITS LAB L501.9520 0.358-3.74 uIU/mL Normal TSH 1.95 Performed By: #### L500.4050, L501.9520 #### [facility] [address] [place], [address] CBC W/DIFF, AUTOMATED Collected: 01/03/2018 Status: F Source: [place] 11:50 AM [facility] REPOSITORY TYPE CODE TESTS RESULT OUT OF RANGE REFERENCE UNITS LAB L100.1000 4.4-11.0 K/mm3 Normal WBC 9.1 LAB L100.1200 4.6-6.2 M/mm3 Low RBC 3.89 LAB L100.1300 13.0-16.5 g/dl Normal HGB 13.3 LAB L100.1400 40-54 % Normal HCT 40.9 LAB L100.1500 80-94 fL High MCV 105.1 LAB L100.1600 27.0-32.0 pg High MCH 34.2 LAB L100.1700 32-36 g/gl Normal MCHC 32.5 LAB L100.1810 11.6-14.6 % High RDW CV 14.8 LAB L100.1820 35.1-43.9 fl High RDW SD 56.9 LAB L100.1900 150-450 K/mm3 Normal PLT 174 LAB L100.2000 6.2-12.0 fl Normal MPV 9.9 LAB L100.2100 47-70 % High NEUT% 73.7 LAB L100.2200 19-41 % Low LY% 13.2 LAB L100.2300 0-10 % High MONO% 11.4 LAB L100.2400 0-5 % Normal EO% 0.8 LAB L100.2500 0-1 % Normal BASO% 0.5 LAB L100.2550 0.0-0.9 % Normal IM GRAN % 0.400 Result Comment: IG% - Immature Granulocytes (promyelocytes, myelocytes and metamyelocytes) > 1% indicates that a LEFT SHIFT is Present. LAB L100.2620 2.0-7.7 X10 3/uL Normal Absolute Neut 6.7 LAB L100.2720 0.83-4.51 X10 3/ul Normal Absolute Lymph 1.21 Performed By: #### L100.0100 #### [facility] [address] [place], [address] COMPREHENSIVE METABOLIC Collected: 01/03/2018 Status: F Source: [facility] 11:50 AM [facility] REPOSITORY TYPE CODE TESTS RESULT OUT OF RANGE REFERENCE UNITS LAB L501.0100 74-106 mg/dL Normal GLU 89 Result Comment: Please note revised GLUCOSE reference range effective 2017. LAB L501.1000 7-18 mg/dL High BUN 21 LAB L501.1100 0.70-1.30 mg/dL Normal CREAT,SERUM 1.03 Result Comment: The validity of the calculated GFR AND GFRAA in patients over 70 years has not been determined. Clinical correlation is essential. LAB L501.1110 >60 mL/min Normal EST GFR 79 Result Comment: Non- GFR Calc LAB L501.1115 >60 mL/min Normal EST GFR - AA 96 Result Comment: GFR Calc LAB L501.1300 10-20 RATIO High BUN/CRE 20.4 LAB L501.1500 6.4-8.2 g/dL T Normal PROT 6.5 LAB L501.1800 3.2-5.0 g/dL Normal ALB 3.4 LAB L501.1950 2.2-4.2 g/dL Normal GLOB 3.1 LAB L501.2000 0.9-2.4 RATIO Normal A/G 1.1 LAB L501.2200 8.5-10.1 mg/dL Low CA 8.0 LAB L501.4100 15-37 U/L Normal AST 29 LAB L501.4305 45-117 U/L Normal ALK P 87 LAB L501.4405 16-61 U/L Normal ALT 33 Result Comment: Please note revised ALT reference range effective 2017. LAB L501.4600 0.20-1.00 mg/dL Normal T BILI 0.40 LAB L501.5300 136-145 mmol/L Normal NA 143 LAB L501.5600 3.5-5.1 mmol/L Normal K 4.5 LAB L501.5900 98-107 mmol/L Normal CL 106 LAB L501.6100 21.0-32.0 mmol/L High CO2 33.0 LAB L501.6200 5-15 Low GAP 4 Performed By: #### L500.4050, L501.9520 #### [facility] [address] [place], [place], [address] THYROID STIM HORMONE Collected: 01/03/2018 Status: F Source: [place] (TSH) 11:50 AM [facility] REPOSITORY TYPE CODE TESTS RESULT OUT OF RANGE REFERENCE UNITS LAB L501.9520 0.358-3.74 uIU/mL Normal TSH 2.19 Performed By: #### L500.4050, L501.9520 #### [facility] [address] [place], [place], [address] ALLERGIES ALLERGIES DATE TYPE / CODE NAME / CODE REACTION SEVERITY SOURCE 11/11/2018 Drug No Known Unknown [facility] Allergy/4160 Allergies/F00 Hospital 14425(SNOMED 1797389(RXNOR Repository CT) M) ENCOUNTERS ENCOUNTERS ADMIT/DISCHARGE ACCOUNT ADMITTING ENCOUNTER LOCATION SOURCE NUMBER CLASS 11/11/2018/ [id number] Emergency Rona Rona 8 3 [facility] ing:ED Repository 10/30/2018 [id number] Ambulatory [place] Rona 1 [facility] ing:CVS Repository 10/27/2018 [id number] Ambulatory [place] Rona 7 [facility] ing:POLAB3 Repository 10/19/2018 [id number] Ambulatory Rona Rona 7 [facility] ing:CVS Repository 08/07/2018/ [id number] Emergency [place]ona [place] 8 5 [facility] ing:ED Repository 08/07/2018 [id number] Ambulatory Rona Rona 4 [facility] ing:CVS Repository 07/06/2018 [id number] Ambulatory [place] Rona 0 [facility] ing:POLAB3 Repository 01/03/2018 [id number] Ambulatory [place]ona [place] 9 [facility] ing:POLAB3 Repository PAYERS PAYERS ENCOUNTER GUARANTOR PAYER SUBSCRIBER SOURCE 11/11/2018 PAWAN Yady Primary PAWAN Conteh [place] [id number] DEER Insurance:MEDICARE [facility] [id number] [address]Wks: Number: Repository [id number] (HP) Date:2018-11-11 11/11/2018 Secondary PAWAN K Rona Insurance:MEDICAIDPol GARVERDOB: [facility] Number: [id number] [facility] [id number] Repository Date:2018-11-11 11/11/2018 Tertiary NOT GIVENUNK [place] Insurance:SELF PAY [facility] Number: Effective Repository Date:2018-11-11 10/30/2018 PAWAN Conteh Primary PAWAN Conteh Rona [id number] DEER Insurance:MEDICARE GARVERDOB: [facility], PART A [facility] [id number] Hospital [place] [address]Xzn: Number: Repository [id number] (HP) Date:2018-10-27 10/30/2018 Secondary PAWAN K [place] Insurance:MEDICAIDPol GARVERDOB: Community icy Number: [id number] Hospital [id number] Repository Date:2018-10-27 10/30/2018 Tertiary NOT GIVENUNK Rona Insurance:SELF PAY [facility]: Effective Repository Date:2018-10-27 10/27/2018 PAWAN K Primary PAWAN Conteh [place] [id number] DEER Insurance:MEDICARE GARVERDOB: Community [place] [facility], PART A [facility] [id number] Hospital [address]Khk: Number: Repository [id number] () Date:2018-10-27 10/27/2018 Secondary PAWAN K [place] Insurance:MEDICAIDPol GARVERDOB: Community [facility] Number: [id number] Hospital [id number] Repository Date:2018-10-27 10/27/2018 Tertiary NOT GIVENUNK [place] Insurance:SELF PAY [facility] Number: Effective Repository Date:2018-10-27 10/19/2018 PAWAN K Primary PAWAN Conteh [place] [id number] DEER Insurance:MEDICARE GARVERDOB: Community [place] [facility], PART A [facility] [id number] [place] [address]Pqe: Number: Repository [id number] (HP) Date:2018-10-19 10/19/2018 Secondary PAWAN K Rona Insurance:MEDICAIDPol GARVERDOB: Community [facility] Number: [id number] Hospital [id number] Repository Date:2018-10-19 10/19/2018 Tertiary NOT GIVENUNK Rona Insurance:SELF PAY [facility] Number: Effective Repository Date:2018-10-19 08/07/2018 PAWAN K Primary PAWAN Yady [place] [id number] DEER Insurance:MEDICARE GARVERDOB: Community [place] [facility], PART A [facility] [id number] Hospital [place] [address]Jdy: Number: Repository [id number] () Date:2018-08-07 08/07/2018 Secondary PAWAN K Rona Insurance:MEDICAIDPol GARVERDOB: Community icy Number: [id number] Hospital [id number] Repository Date:2018-08-07 08/07/2018 Tertiary NOT GIVENUNK Rona Insurance:SELF PAY [facility] Number: Effective Repository Date:2018-08-07 08/07/2018 Pawan K Primary Pawan Conteh Rona [id number] [place] Insurance:MEDICARE GarverDOB: [facility] [id number] Hospital [address]Hld: Number: Repository [id number] (HP) Date:2018-08-07 08/07/2018 Secondary Pawan K Rona Insurance:MEDICAIDPol GarverDOB: [facility] icy Number: [id number] Hospital [id number] Repository Date:2018-08-07 08/07/2018 Tertiary NOT GIVENUNK [place] Insurance:SELF PAY [facility] Number: Effective Repository Date:2018-08-07 07/06/2018 Pawan K Primary Pawan Conteh [place] [id number] [place] Insurance:MEDICARE [facility] [id number] Hospital [address]Nfa: Number: Repository [id number] (HP) Date:2018-07-06 07/06/2018 Secondary Pawan Yady [place] Insurance:MEDICAIDPol GarverDOB: [facility] icy Number: [id number] Hospital [id number] Repository Date:2018-07-06 07/06/2018 Tertiary NOT GIVENUNK Rona Insurance:SELF PAY [facility] Number: Effective Repository Date:2018-07-06 01/03/2018 Pawan K Primary Pawan Conteh Rona [id number] [place] Insurance:MEDICARE GarverDOB[facility] [id number] Hospital [address]Efm: Number: Repository [id number] (HP) Date:2018-01-03 01/03/2018 Secondary Pawan K Rona Insurance:MEDICAIDPol GarverDOB: Community icy Number: [id number] Hospital [id number] Repository Date:2018-01-03 01/03/2018 Tertiary NOT GIVENUNK Rona Insurance:SELF PAY [facility] Number: Effective Repository Date:2018-01-03
== END ==
PROVIDERS: Family Provider Family Medicine Geriatric Medicine; PCP Family Medicine Geriatric Medicine; Visit Provider Family Medicine Geriatric Medicine
DX: R60.9 Edema, unspecified (principal)
CPT/HCPCS: 36415; 80048; 85025

== ENCOUNTER → 2018-10-30 12:33 | Outpatient (CLI) | payer MEDICARE, MEDICAID, SELFPAY ==
--- NOTE | 2018-10-30 12:35 | VDLE_ITS ---
Reason For Study: EDEMA Procedure LEFT Exam performed in department. CFV is partially compressible with A preliminary report was called and/or faxed intraluminal echoes and normal color flow to Dr Delgadillo. doppler signal. FV, POP V and T/P Trunk are noncompressible and not dilated, with intraluminal echoes and absent color flow and doppler signal. PTV is compressible. PeroV is compressible. GSV is normal. Interpretation Summary Chronic venous changes are noted in the left common femoral vein, femoral vein, popliteal vein, and tibio-peroneal trunk. The left femoral vein, popliteal vein, and tibio-peroneal trunk remain non- compressible and devoid of flow. The left posterior tibial vein and peroneal vein are patent and compressible. The left greater saphenous vein appears patent and compressible segmentally. There has been no change in the left lower extremity since a prior study on 10/19/2018. Ordering Physician: Willard Delgadillo Referring Physician: Willard Delgadillo Chi Performed By: Betty Dietz, RDCS, RVT
--- OUTSIDE RECORDS SUMMARY | 2019-02-01 02:59 | XMS RPT_ITS ---
:1960 Author Organization OHIP Support Name Relationship Address Phone JERONIMO DAVENPORT/PITER Unavailable [address] + [place] [address] [employer] Unavailable [address] + [place] [address] ISSAC, JERONIMO/PITER Unavailable [address] + [place] [address] [employer] Unavailable [address] + [place] [address] ISSAC, JERONIMO/PITER Unavailable [address] + [place] [address] [employer] Unavailable [address] + [place] [address] ISSAC, JERONIMO/PITER Unavailable [address] + [place] [address] [employer] Unavailable [address] + [place] [address] ISSAC, JERONIMO/PITER Unavailable [address] + [place] [address] [employer] Unavailable [address] + [place] [address] ISSAC, JERONIMO/PITER Unavailable [address] + [place] [address] [employer] Unavailable [address] + [place] [address] ISSAC, JERONIMO/PITER Unavailable [address] + [place] [address] [employer] Unavailable [address] + [place] [address] ISSAC, JERONIMO/PITER Unavailable [address] + [place] [address] [employer] Unavailable [address] + [place] [address] Care Team Providers Name Role Phone JASWINDER SHERIDAN Attending Unavailable JASWINDER SHERIDAN Referring Unavailable Elie, Willard Chi Primary Care Unavailable JASWINDER SHERIDAN Consulting Unavailable Elie, Willard Chi Attending Unavailable Elie, Willard Chi Referring Unavailable Elie, Willard Chi Primary Care Unavailable Elie, Willard Chi Primary Care Unavailable Monique Alfonso Attending Unavailable Elie, Willard Chi Primary Care Unavailable Serg Egan Attending Unavailable Elie, Willard Chi Attending Unavailable [...] R60.0 - Localized Elie, Willard Chi Active [facility] edema / Community R60.0(ICD-10) Hospital Repository 10/19/2018 [...] EMERGENCY DEPARTMENT Observed: 11/11/2018 Status: F Source: [place] SUMMARY 3:55 PM [facility] HOSPITAL REPOSITORY [facility] Medical Records Department [address] [place] [address] Emergency Department Summary 11/11/18 1011 MR#: [id number] Acct: [id number] Name: PAWAN DAVENPORT Rep #: [id number] : 1960 58 From: Serg Egan MD [...] and vomiting This note was generated with Silere Medical Technologyation software. It may contain incorrect words, spelling, [...] your Primary Care Provider. Call [facility] ([phone]) or report to the closest Emergency Room. Call 911 if necessary. 11/11/18 1555 <Electronically signed by Serg Egan MD> Date Serg Egan MD Cosigner Signature (If Indicated): Date CC: Willard Delgadillo MD BRAIN/HEAD WITHOUT Observed: 11/11/2018 Status: F Source: [place] CONTRAST 11:18 AM [facility] REPOSITORY [facility] Imaging Services [address] [place] [address] Brain/Head without Contrast MR#: [id number] Acct: [id number] Name: PAWAN DAVENPORT Rep #: [id number] : 1960 58 From: Nino Harrington MD PCP: Willard Delgadillo MD, Chi Status: REG ER Study: Brain/Head without Contrast Date of Exam: 11/11/18 Exam# [id number] Ordering Dr: Serg Egan MD STUDY: CT [...] CC: Serg Egan MD; Willard Delgadillo MD Sports Marketing Coordinator: Signed CBC W/DIFF, AUTOMATED Collected: 11/11/2018 Status: F Source: [place] 10:20 AM [facility] REPOSITORY TYPE CODE TESTS RESULT OUT OF [...] Lymph 1.71 Performed By: #### L100.0100 #### [facility] [address] [place], [address] COMPREHENSIVE METABOLIC Collected: 11/11/2018 Status: F Source: [facility] 10:20 AM [facility] REPOSITORY TYPE CODE TESTS RESULT OUT OF [...] 7 Performed By: #### L500.4050, L501.2450 #### [facility] [address] [place], [address] LIPASE Collected: 11/11/2018 Status: F Source: [place] 10:20 AM [facility] REPOSITORY TYPE CODE TESTS RESULT OUT OF RANGE REFERENCE UNITS LAB L501.2450 73-393 U/L Normal LIPASE 81 Performed By: #### L500.4050, L501.2450 #### [facility] [address] [place], [address] ACUTE ABDOMEN INC Observed: 11/11/2018 Status: F Source: [facility] 10:09 AM [facility] REPOSITORY [facility] Imaging Services [address] [place] [address] Acute Abdomen Inc Chest MR#: [id number] Acct: [id number] Name: PAWAN DAVENPORT Rep #: [id number] : 1960 M 58 From: Yoandy Warner MD PCP: Elie BARFIELD,[employer] Software Status: REG ER Study: Acute Abdomen Inc Chest Date of Exam: 11/11/18 Exam# [id number] Ordering Dr: Serg Egan MD STUDY: X-RAY [...] CC: Serg Egan MD; Willard Delgadillo MD Sports Marketing Coordinator: Signed VENOUS DUPLEX LOWER Observed: 11/01/2018 Status: F Source: [place] EXTREMITY 6:40 PM [facility] REPOSITORY [facility] Cardiovascular Services [address] [place] [address] Venous Duplex US, Unilateral 10/30/18 1244 MR#: [id number] Acct: [id number] Name: PAWAN DAVENPORT Rep #: [id number] : 1960 58 From: David Grossman MD Attending Dr: Elie BARFIELD,Willard Wilde Status: REG CLI Ordering Dr: Willard Delgadillo MD Date: 10/30/18 Location: [facility] Sex: M C Admitted: Reason For Study: [...] Date Dictated: 10/30/18 1244 Date Transcribed: 11/01/181839 Sports Marketing Coordinator: Signed CBC W/DIFF, AUTOMATED Collected: 10/27/2018 Status: F Source: [place] 11:13 AM [facility] REPOSITORY TYPE CODE TESTS RESULT OUT OF [...] Lymph 1.12 Performed By: #### L100.0100 #### [facility] [address] [place], [address] BASIC METABOLIC Collected: 10/27/2018 Status: F Source: [place] PROFILE ([facility]) 11:13 AM [facility] REPOSITORY TYPE CODE TESTS RESULT OUT OF [...] GAP 8 Performed By: #### L500.2500 #### [facility] [address] [place], [address] VENOUS DUPLEX LOWER Observed: 10/21/2018 Status: F Source: [place] EXTREMITY 10:30 AM [facility] REPOSITORY [facility] Cardiovascular Services [address] [place] [address] Venous Duplex US - Kenney Extrem 10/19/18 1122 MR#: [id number] Acct: [id number] Name: PAWAN DAVENPORT Rep #: [id number] : 1960 58 From: David Grossman MD Attending Dr: Eile BARFIELD,Willard Wilde Status: REG CLI Ordering Dr: Willard Delgadillo MD Date: 10/19/18 Location: [facility] Sex: [...] Dictated: 10/19/18 1122 Date Transcribed: 10/21/18 1029 Sports Marketing Coordinator: Signed CBC W/DIFF, AUTOMATED Collected: 10/19/2018 Status: F Source: [place] 12:10 PM [facility] REPOSITORY TYPE CODE TESTS RESULT OUT OF [...] Lymph 1.17 Performed By: #### L100.0100 #### [facility] [address] [place], [address] BASIC METABOLIC Collected: 10/19/2018 Status: F Source: [place] PROFILE ([facility]) 12:10 PM [facility] REPOSITORY TYPE CODE TESTS RESULT OUT OF [...] GAP 7 Performed By: #### L500.2500 #### [facility] [address] [place], [address] VENOUS DUPLEX LOWER Observed: 08/08/2018 Status: F Source: [place] EXTREMITY 2:59 PM [facility] REPOSITORY [facility] Cardiovascular Services [address] [place] [address] Venous Duplex US, Unilateral 08/07/18 1204 MR#: [id number] Acct: [id number] Name: PAWAN DAVENPORT Rep #: [id number] : 1960 57 From: David Grossman MD [...] Date Dictated: 08/07/18 1204 Date Transcribed: 08/08/181457 Sports Marketing Coordinator: Signed EMERGENCY DEPARTMENT Observed: 08/07/2018 Status: F Source: [place] SUMMARY 4:19 PM [facility] REPOSITORY [facility] Medical Records Department [address] [place] [address] Emergency Department Summary 08/07/18 1350 MR#: [id number] Acct: [id number] Name: PAWAN DAVENPORT Rep #: [id number] : 1960 57 From: Monique Alfonso MD [...] with rest. He was seen by a manager water today it was to orthopedics. An outpatient [...] leg DVT This note was generated with Jugo dictation software. It may contain incorrect words, [...] your Primary Care Provider. Call [facility] ([phone]) or report to the closest Emergency Room. Call 911 if necessary. 08/07/18 4371 <Electronically signed by Monique Alfonso MD> Date Monique Alfonso MD Cosigner Signature (If Indicated): Date CC: Willard Delgadillo MD DISCHARGE INSTRUCTION Observed: 08/07/2018 Status: F Source: [place] 1:52 PM [facility] REPOSITORY [facility] Medical Records Department [address] [place] [address] Discharge Instruction 08/07/18 1350 MR#: [id number] Acct: [id number] Name: PAWAN DAVENPORT Rep #: [id number] : 1960 57 From: Monique Alfonso MD [...] your Primary Care Provider. Call [facility] ([phone]) or report to the closest Emergency Room. Call 911 if necessary. 08/07/18 1352 <Electronically signed by Monique Alfonso MD> Date Monique Alfonso MD Cosigner Signature (If Indicated): Date CC: Willard Delgadillo MD CBC W/DIFF, AUTOMATED Collected: 07/06/2018 Status: F Source: [place] 2:39 PM [facility] REPOSITORY TYPE CODE TESTS RESULT OUT OF [...] Lymph 1.03 Performed By: #### L100.0100 #### [facility] [address] [place], [address] COMPREHENSIVE METABOLIC Collected: 07/06/2018 Status: F Source: [facility] 2:39 PM [facility] REPOSITORY TYPE CODE TESTS RESULT OUT OF [...] 11 Performed By: #### L500.4050, L501.9520 #### [facility] [address] [place], [address] THYROID STIM HORMONE Collected: 07/06/2018 Status: F Source: [place] ([facility]) 2:39 PM [facility] REPOSITORY TYPE CODE TESTS RESULT OUT OF RANGE REFERENCE UNITS LAB L501.9520 0.358-3.74 uIU/mL Normal TSH 1.95 Performed By: #### L500.4050, L501.9520 #### [facility] [address] [place], [address] CBC W/DIFF, AUTOMATED Collected: 01/03/2018 Status: F Source: [place] 11:50 AM [facility] REPOSITORY TYPE CODE TESTS RESULT OUT OF [...] Lymph 1.21 Performed By: #### L100.0100 #### [facility] [address] [place], [address] COMPREHENSIVE METABOLIC Collected: 01/03/2018 Status: F Source: [facility] 11:50 AM [facility] REPOSITORY TYPE CODE TESTS RESULT OUT OF [...] 4 Performed By: #### L500.4050, L501.9520 #### [facility] [address] [place], [place], [address] THYROID STIM HORMONE Collected: 01/03/2018 Status: F Source: [place] (T[facility]) 11:50 AM [facility] REPOSITORY TYPE CODE TESTS RESULT OUT OF RANGE REFERENCE UNITS LAB L501.9520 0.358-3.74 uIU/mL Normal TSH 2.19 Performed By: #### L500.4050, L501.9520 #### [facility] [address] [place], [place], [address] ALLERGIES ALLERGIES DATE TYPE / CODE NAME / CODE REACTION SEVERITY SOURCE 11/11/2018 Drug No Known Unknown [facility] Allergy/4160 Allergies/F00 Hospital 67382(SNOMED 8288413(RXNOR Repository CT) M) ENCOUNTERS ENCOUNTERS ADMIT/DISCHARGE ACCOUNT ADMITTING ENCOUNTER LOCATION SOURCE NUMBER CLASS 11/11/2018/ [id number] Emergency [place] 3 [facility] ing:ED Repository 10/30/2018 [id number] Ambulatory [facility] [place] 1 [facility] ing:[facility] Repository 10/27/2018 [id number] Ambulatory [facility] [place] 7 [facility] ing:POLAB3 Repository 10/19/2018 [id number] Ambulatory [place] 7 [facility] ing:[facility] Repository 08/07/2018/ [id number] Emergency [place] [facility] 8 5 [facility] ing:ED Repository 08/07/2018 [id number] Ambulatory [place] 4 [facility] ing:[facility]S Repository 07/06/2018 [id number] Ambulatory [facility] [place] 0 [facility] ing:POLAB3 Repository 01/03/2018 [id number] Ambulatory [place] [facility] 9 [facility] ing:POLAB3 Repository PAYERS PAYERS ENCOUNTER GUARANTOR PAYER SUBSCRIBER SOURCE 11/11/2018 PAWAN Yady Primary PAWAN Conteh [place] [id number] [place] Insurance:MEDICARE [facility] [id number] [address]Kax: Number: Repository [id number] (HP) Date:2018-11-11 11/11/2018 Secondary PAWAN K [place] Insurance:MEDICAIDPol GARVERDOB[place] [facility] [place]: [id number] [id number] Repository Date:2018-11-11 11/11/2018 Tertiary NOT GIVENUNK [place] Insurance:SELF PAY [facility] Number: Effective Repository Date:2018-11-11 10/30/2018 PAWAN Conteh Primary PAWAN Conteh [place] [id number] [place] Insurance:MEDICARE GARVERDOB: [facility] [id number] [place] [address]Inf: Number: Repository [id number] (HP) Date:2018-10-27 10/30/2018 Secondary PAWAN K [place] Insurance:MEDICAIDPol GARVERDOB: Community icy Number: [id number] [facility] [id number] Repository Date:2018-10-27 10/30/2018 Tertiary NOT GIVENUNK [place] Insurance:SELF [facility]Y [facility] Number: Effective Repository Date:2018-10-27 10/27/2018 PAWAN K Primary PAWAN Conteh [place] [id number] [place] Insurance:MEDICARE GARVERDOB: Community [facility] [id number] [address]Ozw: Number: Repository [id number] () Date:2018-10-27 10/27/2018 Secondary PAWAN K [place] Insurance:MEDICAIDPol GARVERDOB: Community icy Number: [id number] [facility] [id number] Repository Date:2018-10-27 10/27/2018 Tertiary NOT GIVENUNK [place] Insurance:SELF PAY [facility] Number: Effective Repository Date:2018-10-27 10/19/2018 PAWAN K Primary PAWAN Cot[place] [id number] [place] Insurance:MEDICARE GARVERDOB: Community [address] [facility] [id number] [place] [address]Aoa: Number: Repository [id number] (HP) Date:2018-10-19 10/19/2018 Secondary PAWAN K [place] Insurance:MEDICAIDPol GARVERDOB: Community icy Number: [id number] [facility] [id number] Repository Date:2018-10-19 10/19/2018 Tertiary NOT GIVENUNK [place] Insurance:SELF PAY [facility] Number: Effective Repository Date:2018-10-19 08/07/2018 PAWAN K Primary PAWAN Yady [place] [id number] [place] Insurance:MEDICARE GARVERDOB: Community [address] [id number] [place] [address]Abr: Number: Repository [id number] () Date:2018-08-07 08/07/2018 Secondary PAWAN K [place] Insurance:MEDICAIDPol GARVERDOB: Community icy Number: [id number] [facility] [id number] Repository Date:2018-08-07 08/07/2018 Tertiary NOT GIVENUNK [place] Insurance:SELF PAY [facility] Number: Effective Repository Date:2018-08-07 08/07/2018 Pawan K Primary Pawan Conteh [place] [id number] [place] Insurance:MEDICARE GarverDOB: [facility] [id number]' [facility] [address]Jko: Number: Repository [id number] (HP) Date:2018-08-07 08/07/2018 Secondary Pawan K [place] Insurance:MEDICAIDPol GarverDOB: [facility] icy Number: [id number] [facility] [id number] Repository Date:2018-08-07 08/07/2018 Tertiary NOT GIVENUNK [place] Insurance:SELF PAY [facility] Number: Effective Repository Date:2018-08-07 07/06/2018 Pawan K Primary Pawan Conteh [place] [id number] [place] Insurance:MEDICARE [facility] [id number][facility] [address]Cmg: Number: Repository [id number] (HP) Date:2018-07-06 07/06/2018 Secondary Pawan Yady [place] Insurance:MEDICAIDPol GarverDOB: [facility] icy Number: [id number] Hospital [id number] Repository Date:2018-07-06 07/06/2018 Tertiary NOT GIVENUNK [place] Insurance:SELF PAY [facility] Number: Effective Repository Date:2018-07-06 01/03/2018 Pawan K Primary Pawan Conteh [place] [id number] [place] Insurance:MEDICARE GarverDOB[facility] [id number]' [facility] [address]Thk: Number: Repository [id number] (HP) Date:2018-01-03 01/03/2018 Secondary Pawan K [place] Insurance:MEDICAIDPol GarverDOB: Community icy Number: [id number] Hospital [id number] Repository Date:2018-01-03 01/03/2018 Tertiary NOT GIVENUNK [place] Insurance:SELF PAY [facility] Number: Effective Repository Date:2018-01-03
== END ==
PROVIDERS: Family Provider Family Medicine Geriatric Medicine; PCP Family Medicine Geriatric Medicine; Referring Provider Family Medicine Geriatric Medicine; Visit Provider Family Medicine Geriatric Medicine
DX: R60.0 Localized edema (principal)
CPT/HCPCS: 93971

== ENCOUNTER 2018-11-11 09:59 | Emergency (ER) | payer MEDICARE, MEDICAID, SELFPAY ==
[2018-11-11 10:00] VITALS: BP 150/63; PULSE 62; RESP 17; TEMP 36.5; O2SAT 98; BMI 28.8
--- NOTE | 2018-11-11 10:09 | RAD_ITS ---
STUDY: X-RAY - ACUTE ABDOMINAL SERIES REASON FOR EXAM: Male, 58 years old. Vomiting, nausea TECHNIQUE: Single view of the chest. Supine, and erect view(s) of the abdomen were obtained. 4 views. COMPARISON: None. FINDINGS: The lungs are clear and expanded. Normal size heart. Normal mediastinum and delvis. Normal visualized pulmonary arteries. Normal visualized aortic arch and descending thoracic aorta. There is a non-specific bowel gas pattern. The soft tissue structures of the abdomen and pelvis are unremarkable. There are diffuse degenerative changes of the visualized lumbar spine. RAD/Acute Abdomen Inc Chest IMPRESSION: No acute findings Electronically Signed: Enoch Warner MD at 11:39 EST , Service support ,
--- NOTE | 2018-11-11 10:11 | ED.VISSUMM ---
- ER Visit Summary Date of Service: 11/11/18 Chief Complaint: Nausea, vomit History of Present Illness: The patient is a 58 M presents to the emergency department nausea and vomiting. The patient is otherwise healthy. He does have a history of Down syndrome, but has had no prior abdominal surgery. Mother states that after [place], he had 3 episodes of vomiting. He was then complaining of being dizzy. States the vomiting stopped and he seemed to do okay, but then began to vomit again yesterday. He had 3 more episodes. He still moving his bowels without issue. He just told that he felt lightheaded. He has not had fevers or chills. He denies any significant pain. There is been no blood in the emesis. He is on Eliquis for history of DVT, but has been taking it without issue. 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 He has not had fevers or chills. I obtained an abdominal series which showed no evidence of obstruction. His labs are unremarkable. Of fluids and Zofran, he was improved but was still complaining of dizziness. With his vomiting and the fact that he is on anticoagulants, I did want to rule out acute intracranial abnormality. Head CT was obtained which was unremarkable. On reevaluation with meclizine, he states that his dizziness has resolved. I do not suspect posterior stroke or other dangerous process. I do feel that the patient is a for outpatient therapy. He was able to ambulate. The patient be discharged home. Treatment Plan: [] Disposition: Discharge Impression: 1. Nausea and vomiting This note was generated with [employer] dictation software. It may contain incorrect words, spelling, and punctuation that were not noted in review of the chart prior to signing ED Disposition - Plan for ED Patient: Disposition: Home or Assisted Living Chief Complaint: Abd Pain Instructions: ED Dizziness UKO, ED Nausea Vomiting Prescriptions: RX: Meclizine HCl 25 mg PO Q8H PRN PRN #30 tab PRN Reason: Dizziness Ondansetron [Zofran Odt] 4 mg PO Q8H PRN PRN #10 tab PRN Reason: Nausea Referrals: Willard Delgadillo Chi, MD [Primary Care Provider] -
[2018-11-11 10:32] LABS: Absolute Lymphocyte Count 1.71 X10^3/ul (0.83-4.51); Absolute Neutrophil Count 3.5 X10^3/uL (2.0-7.7); Basophil# 0.06 X10^3/uL; Eosinophils% 1.6 % (0-5); Hematocrit 43.7 % (40-54); Hemoglobin 15.6 g/dl (13.0-16.5); Lymphocyte # 1.71 X10^3/ul (4.0); Lymphocyte % 27.7 % (19-41); Mean Corp Hgb Conc 35.7 g/gl (32-36); Mean Corpuscular Volume 100.9 fL (80-94); Mean Platelet Vol. 9.3 fl (6.2-12.0); Monocyte# 0.77 X10^3/uL; Monocyte% 12.5 % (0-10); Neutrophil # 3.51 X10^3/uL (2.7-7.7); Neutrophil % 56.9 % (47-70); Platelet Count 243 K/mm3 (150-450); RBC Distribution Width CV 13.1 % (11.6-14.6); RBC Distribution Width SD 48.6 fl (35.1-43.9); Red Blood Count 4.33 M/mm3 (4.6-6.2); White Blood Count 6.2 K/mm3 (4.4-11.0)
[2018-11-11 10:33] LABS: POSITIVE COUNT NO; POSITIVE DIFFERENTIAL NO; POSITIVE MORPHOLOGY NO
[2018-11-11] MEDS: Ondansetron 4 MG/2 ML Vial IV (10:37)
[2018-11-11] MEDS: 0.9% Normal Saline 1,000 ML 1000 ML IV (10:37)
[2018-11-11 10:46] LABS: AST(SGOT) 37 U/L (15-37); Alanine Aminotransfer ALT/SGPT 46 U/L (16-61); Albumin, Serum 3.5 g/dL (3.2-5.0); Alkaline Phosphatase 93 U/L (45-117); Anion Gap 7 (5-15); BUN 16 mg/dL (7-18); BUN/Creat Ratio 12.4 RATIO (10-20); Calcium,Total 8.5 mg/dL (8.5-10.1); Chloride 105 mmol/L (98-107); Creatinine, Serum 1.29 mg/dL (0.70-1.30); EST Glomerular Filtration Rate 61 mL/min (>60); Est Glom Filt Rate - Afr Amer 74 mL/min (>60); Globulin 3.6 g/dL (2.2-4.2); Glucose 129 mg/dL (74-106); Lipase 81 U/L (73-393); Potassium 3.9 mmol/L (3.5-5.1); Protein, Total 7.1 g/dL (6.4-8.2); Sodium Level 140 mmol/L (136-145)
--- NOTE | 2018-11-11 11:18 | CT_ITS ---
STUDY: CT BRAIN WITHOUT CONTRAST REASON FOR EXAM: Male, 58 years old. Dizziness and vomiting. RADIATION DOSAGE (If Supplied By Facility): CTDIvol = ( 44.99 ) mGy, DLP = ( 745.49 ) mGycm TECHNIQUE: Transaxial CT imaging of the brain was performed without administration of intravenous contrast material. Individualized dose optimization techniques were used for this CT. COMPARISON: None. FINDINGS: Normal soft tissue structures. Normal calvarium. Normal size ventricles and extra-axial spaces for the patient's age. Normal white matter tracts of the cerebral hemispheres. Normal basal ganglia and thalami. Normal brainstem. Normal cerebellum. There is no intracranial hemorrhage. There are no findings of an acute ischemic infarction. Normal visualized paranasal sinuses. CT/Brain/Head without Contrast IMPRESSION: Normal unenhanced CT scan of the brain. Electronically Signed: Nino Harrington MD at 11:50 EST , Service support ,
[2018-11-11] MEDS: Meclizine HCl 25 MG Tablet PO (11:38)
[2018-11-11 12:14] VITALS: PULSE 63; RESP 20; O2SAT 98
== END 2018-11-11 12:15 | disposition home or self-care (01) ==
PROVIDERS: Emergency Provider Emergency Medicine; Family Provider Family Medicine Geriatric Medicine; PCP Family Medicine Geriatric Medicine
DX: R11.2 Nausea with vomiting, unspecified (principal); R42 Dizziness and giddiness; Q90.9 Down syndrome, unspecified; Z86.718 Personal history of other venous thrombosis and embolism; Z79.02 Long term (current) use of antithrombotics/antiplatelets; Z79.899 Other long term (current) drug therapy
CPT/HCPCS: 70450; 74022; 80053; 83690; 85025; 96361; 96374; 99284; J7030; A4216; J2405

== ENCOUNTER → 2018-12-22 13:11 | Outpatient (CLI) | payer MEDICARE, MEDICAID, SELFPAY ==
--- NOTE | 2018-12-22 13:24 | VDLE_ITS ---
Reason For Study: EDEMA RIGHT LEFT GSV is normal. CFV is partially compressible with CFV is compressible, spontaneous, phasic, intraluminal echoes and normal color flow competent and demonstrates normal doppler signal. augmentation. FV, POP V and T/P Trunk are noncompressible FV is compressible, spontaneous, phasic, and not dilated, with intraluminal echoes and competent and demonstrates normal absent color flow and doppler signal. augmentation. PTV is compressible. POP V is compressible, spontaneous, phasic, PeroV is compressible. competent and demonstrates normal GSV is normal. augmentation. T/P Trunk is compressible. PTV is compressible. RT PerV is compressible. Procedure Exam performed in department. A preliminary report was called and/or faxed to DR DELGADILLO. Interpretation Summary Chronic venous changes are noted in the left common femoral vein, femoral vein, popliteal vein, and tibio-peroneal trunk. The left femoral vein, popliteal vein, and tibio-peroneal trunk remain non- compressible and devoid of flow. The left posterior tibial vein and peroneal vein are patent and compressible. Deep veins of the right lower extremity are patent and compressible segmentally. There is no evidence of right lower extremity deep vein thrombosis. Valvular competence appears intact within the proximal deep venous system on the right . The greater saphenous veins appear bilaterally patent and compressible segmentally. There has been no significant change in the left lower extremity since a prior study on 10/30/2018. Ordering Physician: Willard Delgadillo Referring Physician: Willard Delgadillo Chi Performed By: Betty Dietz, BERKLEY, RVT
== END ==
PROVIDERS: Family Provider Family Medicine Geriatric Medicine; PCP Family Medicine Geriatric Medicine; Referring Provider Family Medicine Geriatric Medicine; Visit Provider Family Medicine Geriatric Medicine
DX: R60.0 Localized edema (principal)
CPT/HCPCS: 93970

== ENCOUNTER → 2019-01-04 13:09 | Outpatient (CLI) | payer MEDICARE, MEDICAID, SELFPAY ==
[2019-01-04 16:26] LABS: Absolute Lymphocyte Count 1.59 X10^3/ul (0.83-4.51); Absolute Neutrophil Count 11.3 X10^3/uL (2.0-7.7); Basophil# 0.02 X10^3/uL; Basophil% 0.1 % (0-1); Eosinophil# 0.02 X10^3/uL; Eosinophils% 0.1 % (0-5); Hematocrit 45.7 % (40-54); Hemoglobin 14.7 g/dl (13.0-16.5); Lymphocyte # 1.59 X10^3/ul (4.0); Lymphocyte % 11.7 % (19-41); Mean Corp Hgb Conc 32.2 g/gl (32-36); Mean Corpuscular Hgb 34.6 pg (27.0-32.0); Mean Corpuscular Volume 107.5 fL (80-94); Monocyte# 0.61 X10^3/uL; Monocyte% 4.5 % (0-10); Neutrophil # 11.27 X10^3/uL (2.7-7.7); Neutrophil % 82.6 % (47-70); Platelet Count 221 K/mm3 (150-450); RBC Distribution Width CV 14.7 % (11.6-14.6); RBC Distribution Width SD 58.1 fl (35.1-43.9); Red Blood Count 4.25 M/mm3 (4.6-6.2); White Blood Count 13.6 K/mm3 (4.4-11.0)
[2019-01-04 16:31] LABS: POSITIVE COUNT NO; POSITIVE DIFFERENTIAL NO; POSITIVE MORPHOLOGY NO
[2019-01-04 16:40] LABS: ALB/GLOB Ratio 1.1 RATIO (0.9-2.4); AST(SGOT) 23 U/L (15-37); Alanine Aminotransfer ALT/SGPT 45 U/L (16-61); Albumin, Serum 3.4 g/dL (3.2-5.0); Alkaline Phosphatase 80 U/L (45-117); Anion Gap 9 (5-15); BUN 20 mg/dL (7-18); BUN/Creat Ratio 16.9 RATIO (10-20); Calcium,Total 8.1 mg/dL (8.5-10.1); Chloride 105 mmol/L (98-107); Creatinine, Serum 1.18 mg/dL (0.70-1.30); EST Glomerular Filtration Rate 68 mL/min (>60); Est Glom Filt Rate - Afr Amer 82 mL/min (>60); Globulin 3.2 g/dL (2.2-4.2); Glucose 102 mg/dL (74-106); Potassium 4.4 mmol/L (3.5-5.1); Protein, Total 6.6 g/dL (6.4-8.2); Sodium Level 142 mmol/L (136-145); Thyroid Stim Hormone (TSH) 2.79 uIU/mL (0.358-3.74)
== END ==
PROVIDERS: Family Provider Family Medicine Geriatric Medicine; PCP Family Medicine Geriatric Medicine; Visit Provider Family Medicine Geriatric Medicine
DX: R53.83 Other fatigue (principal)
CPT/HCPCS: 36415; 80053; 84443; 85025

== ENCOUNTER → 2019-02-05 16:23 | Outpatient (CLI) | payer MEDICARE, MEDICAID, SELFPAY | PROVIDERS: Family Provider Family Medicine Geriatric Medicine; PCP Family Medicine Geriatric Medicine; Referring Provider Family Medicine Geriatric Medicine; Visit Provider Family Medicine Geriatric Medicine | DX: R68.83 Chills (without fever) (principal) | CPT/HCPCS: 87633 ==

== ENCOUNTER 2019-06-17 11:03 | Emergency (ER) | payer MEDICARE, MEDICAID, SELFPAY ==
[2019-06-17 11:04] VITALS: BP 122/79; PULSE 85; RESP 18; TEMP 36.2; O2SAT 98; BMI 31.8
--- NOTE | 2019-06-17 11:11 | RAD_ITS ---
STUDY: X-RAY CHEST REASON FOR EXAM: Male, 58 years old. Stomach and chest pain TECHNIQUE: AP COMPARISON: 11/11/2018 FINDINGS: The lungs are clear and expanded. There is no demonstrated pleural abnormality. There is mild cardiac enlargement. Normal mediastinum and delvis. Normal visualized pulmonary arteries. Normal visualized aortic arch and descending thoracic aorta. No acute bony process. There is no demonstrated abnormality of the visualized soft tissue structures of the upper abdomen. RAD/Chest 1 View (Portable) IMPRESSION: Stable, nonacute portable x-ray examination of the chest. Electronically Signed: Aleksandar Ramon MD at 12:18 EDT , Service support ,
--- NOTE | 2019-06-17 11:11 | EKG12_ITS ---
Test Reason : DIZZINESS Blood Pressure : / mmHG Vent. Rate : 066 BPM Atrial Rate : 066 BPM P-R Int : 164 ms QRS Dur : 060 ms QT Int : 364 ms P-R-T Axes : 063 062 032 degrees QTc Int : 381 ms Sinus rhythm with Premature atrial complexes Otherwise normal ECG Confirmed by HILLARY BARFIELD, NGOC ([id number]), managing editor BRITTANI EDDY ([id number]) on 06/20/2019 10:15:23 AM Referred By: DINAH Confirmed By:NGOC THORNTON MD
--- NOTE | 2019-06-17 11:12 | CT_ITS ---
STUDY: CT BRAIN WITHOUT CONTRAST REASON FOR EXAM: Male, 58 years old. Dizziness RADIATION DOSAGE (If Supplied By Facility): CTDIvol = ( 44.99 ) mGy, DLP = ( 745.49 ) mGycm TECHNIQUE: Transaxial CT imaging of the brain was performed without administration of intravenous contrast material. Individualized dose optimization techniques were used for this CT. COMPARISON: 11/11/2018 FINDINGS: Normal soft tissue structures. Normal calvarium. Normal size ventricles and extra-axial spaces for the patient's age. Normal white matter tracts of the cerebral hemispheres. Normal basal ganglia and thalami. Normal brainstem. Normal cerebellum. There is no intracranial hemorrhage. There are no findings of an acute ischemic infarction. Normal visualized paranasal sinuses. CT/Brain/Head without Contrast IMPRESSION: No acute intracranial hemorrhage or mass effect. Stable exam. Electronically Signed: Aleksandar Ramon MD at 13:05 EDT , Service support ,
--- NOTE | 2019-06-17 11:28 | ED.DCSUM_ITS ---
History of Present Illness Chief Complaint: Dizziness Informant: Patient, Family Onset: Month(s) Current Severity: Mild Narrative: Patient presents with mother history of Down syndrome chronic sinus infections, was seen by Dr. Johnson ENT a few days ago and started on Ceftin ear, he has had about 4 to 6 days per the mother her mother reports she still very nasally congested quite a rhinorrhea and has complaints of intermittent sense of dizzin ess and spinning sensation he has no history of stroke seizure heart lung liver disease he is otherwise been functional at home walking around doing his daily activities the mother just wants the sinus congestion to go away faster Past Medical History - Allergies and Home Meds Allergies/Adverse Reactions: Allergies No Known Allergies Allergy (Verified 06/17/19 11:03) Primary Care Physician: Willard Delgadillo Chi, MD [Primary Care Provider] - Past Medical History: - Smoking Status: Never smoker Review of Systems ROS: - See above General: Denies: Chills, Fever, Sweats Eyes: Denies: Visual changes - bilaterally, Diplopia ENT: Reports: Rhinorrhea, - - Nasal congestion nasal drainage. Denies: Sore throat Cardiovascular: Denies: Chest pain, Palpitations Respiratory: Denies: Dyspnea, Cough, Dyspnea on exertion Gastrointestinal: Denies: Abdominal pain, Nausea, Vomiting, Diarrhea, Melena, Hematochezia Genitourinary: Denies: Dysuria, Hematuria, Frequency Musculoskeletal: Denies: Back pain, Extremity Pain Skin: Denies: Rash, Wounds Neurological: Denies: Headache, Weakness, Numbness Physical Exam Vital Signs/Narrative: Vital Signs Temp Pulse Resp BP Pulse Ox 06/17/19 11:04 97.1 F L 85 18 122/79 H 98 General: Well nourished, Well developed, No Acute Distress Head: Normocephalic, Atraumatic Eyes: Perrl, EOMI ENT: Moist mucous membranes, No rhinorrhea, - - He has altered and abnormal eye movements his eyes turn inward chronic per the mother his nose is congested his throat was clear his airways intact his neurologic exam is baseline normal NIH 0 Neck: Supple, Nontender Cardiovascular: Regular rate, Regular rhythm, No murmurs Respiratory: No distress, CTA bilaterally, Chest nontender Abdomen: Soft, Nontender, Nondistended, Normal bowel sounds Back: Nontender, Normal Inspection Extremities: Nontender, No edema Skin: Normal color, No rash Neurological: Alert, Oriented x3, Cranial nerves II-XII grossly intact, Normal Strength, Normal Sensation Psychological: Normal affect, Normal Mood Diagnostic/Tx/Re-eval - Medical Decision Making The issue here is nasal congestion causing dizziness patient with coughing he is only been on the antibiotic for about 4 maybe 6 days Ceftinear, Mother's complaint screening labs CT Patient screening labs are all generally unremarkable see those reports, the head CT shows nothing acute including no apparent gross ab normalities in the visualized part of the sinuses Explained all the above to the mother at this time there is now to be an acute life-threatening issue that can be addressed to the emergency department the chronic dizziness chronic nasal and sinus congestion is being managed by his outpatient providers she should continue to follow those instructions medications she is sick to the antibiotic consider using Flonase or Claritin that might help the congestion and following up with outpatient providers Home stable Final impression Sinus congestion, dizziness, history of Down syndrome ED Disposition - Plan for ED Patient: Diagnosis: Sinus congestion Instructions: DIZZINESS, Unk Cause Referrals: Willard Delgadillo Chi, MD [Primary Care Provider] - Additional Instructions: Continue therapy designed by your outpatient providers, continue consider using Flonase nasal spray or oral Claritin as an antihistamine follow-up with your outpatient providers
[2019-06-17 11:34] LABS: Absolute Neutrophil Count 6.9 X10^3/uL (2.0-7.7); Basophil# 0.05 X10^3/uL; Basophil% 0.5 % (0-1); Eosinophil# 0.02 X10^3/uL; Eosinophils% 0.2 % (0-5); Hematocrit 44.9 % (40-54); Hemoglobin 15.4 g/dL (13.0-16.5); Lymphocyte % 17.9 % (19-41); Mean Corp Hgb Conc 34.3 g/dL (32-36); Mean Corpuscular Hgb 36.6 pg (27.0-32.0); Mean Corpuscular Volume 106.7 fL (80-94); Mean Platelet Vol. 9.1 fl (6.2-12.0); Monocyte# 1.02 X10^3/uL; Monocyte% 10.1 % (0-10); NRBC Flagged by Analyzer 0 % (0-5); Neutrophil # 6.94 X10^3/uL (2.7-7.7); Neutrophil % 69.1 % (47-70); Platelet Count 136 K/mm3 (150-450); RBC Distribution Width CV 12.7 % (11.6-14.6); RBC Distribution Width SD 49.7 fl (35.1-43.9); Red Blood Count 4.21 M/mm3 (4.6-6.2); White Blood Count 10.1 K/mm3 (4.4-11.0)
[2019-06-17 11:51] LABS: Anion Gap 3 (5-15); BUN 12 mg/dL (7-18); BUN/Creat Ratio 10.7 RATIO (10-20); Calcium,Total 8.8 mg/dL (8.5-10.1); Chloride 105 mmol/L (98-107); Creatinine, Serum 1.12 mg/dL (0.70-1.30); EST Glomerular Filtration Rate 72 mL/min (>60); Est Glom Filt Rate - Afr Amer 87 mL/min (>60); Estimated Creatinine Clearance 58.57 ml/min; Glucose 91 mg/dL (74-106); Potassium 4.2 mmol/L (3.5-5.1); Sodium Level 138 mmol/L (136-145)
[2019-06-17 12:24] VITALS: PULSE 66; RESP 17; O2SAT 98
[2019-06-17 13:41] VITALS: BP 116/78; PULSE 62; RESP 18; O2SAT 100
[2019-06-17 13:42] VITALS: BP 116/78; PULSE 62; RESP 12; O2SAT 100
== END 2019-06-17 13:47 | disposition home or self-care (01) ==
LOC: ED 11:31
PROVIDERS: Emergency Provider Emergency Medicine; Family Provider Family Medicine Geriatric Medicine; PCP Family Medicine Geriatric Medicine
DX: R09.81 Nasal congestion (principal); R42 Dizziness and giddiness; Q90.9 Down syndrome, unspecified
CPT/HCPCS: 70450; 71045; 80048; 84484; 85025; 93005; 96360; 99284; J7040; A4216

== ENCOUNTER → 2019-07-10 | Outpatient (CLI) | payer MEDICARE, MEDICAID, SELFPAY ==
[2019-06-17 11:04] VITALS: BMI 31.8
--- NOTE | 2019-07-10 12:37 | VDLE_ITS ---
Reason For Study: EDEMA RIGHT LEFT GSV is normal. GSV is normal. CFV is compressible, spontaneous, phasic, CFV is compressible, spontaneous, phasic, competent and demonstrates normal augmentation. competent, and demonstrates normal Prox FV is normal. augmentation. MID/Distal FV, POP V, T/P trunk, PTV, & PERV FV, POP V, T/P trunk, PTV, PER V are are DILATED and NON-COMPRESSIBLE. dilated and NON-COMPRESSIBLE. Procedure Exam performed in department. The exam was diagnostic. A preliminary report was called and/or faxed to ELVA [email or web address]@[phone] @ 1:20 pm. PT sent to Dr. Delgadillo's office. Interpretation Summary Acute deep vein thrombosis is noted in the femoral vein, popliteal vein, tibio-peroneal trunk, posterior tibial vein, and peroneal vein bilaterally. The common femoral vein is patent, compressible, and competent bilaterally. The great saphenous veins appear bilaterally patent and compressible segmentally. Ordering Physician: Willard Delgadillo Referring Physician: Willard Delgadillo Chi Performed By: Jo Ann Sheldon, BERKLEY, RVT
[2019-07-10 12:51] LABS: Absolute Lymphocyte Count 1.17 X10^3/uL (0.83-4.51); Basophil# 0.08 X10^3/uL; Eosinophil# 0.02 X10^3/uL; Eosinophils% 0.2 % (0-5); Hematocrit 43.2 % (40-54); Hemoglobin 14.2 g/dL (13.0-16.5); Lymphocyte # 1.17 X10^3/ul (4.0); Lymphocyte % 13.9 % (19-41); Mean Corp Hgb Conc 32.9 g/dL (32-36); Mean Corpuscular Hgb 35.9 pg (27.0-32.0); Mean Corpuscular Volume 109.1 fL (80-94); Mean Platelet Vol. 9.4 fl (6.2-12.0); Monocyte# 0.93 X10^3/uL; Monocyte% 11.1 % (0-10); NRBC Flagged by Analyzer 0 % (0-5); Neutrophil # 5.98 X10^3/uL (2.7-7.7); Neutrophil % 71.3 % (47-70); Platelet Count 164 K/mm3 (150-450); RBC Distribution Width CV 13.1 % (11.6-14.6); RBC Distribution Width SD 53.2 fl (35.1-43.9); Red Blood Count 3.96 M/mm3 (4.6-6.2); White Blood Count 8.4 K/mm3 (4.4-11.0)
[2019-07-10 13:11] LABS: ALB/GLOB Ratio 1.1 RATIO (0.9-2.4); AST(SGOT) 24 U/L (15-37); Alanine Aminotransfer ALT/SGPT 38 U/L (16-61); Albumin, Serum 3.5 g/dL (3.2-5.0); Alkaline Phosphatase 86 U/L (45-117); Anion Gap 4 (5-15); BUN 16 mg/dL (7-18); BUN/Creat Ratio 14.4 RATIO (10-20); Calcium,Total 8.5 mg/dL (8.5-10.1); Chloride 107 mmol/L (98-107); Creatinine, Serum 1.11 mg/dL (0.70-1.30); EST Glomerular Filtration Rate 72 mL/min (>60); Est Glom Filt Rate - Afr Amer 88 mL/min (>60); Globulin 3.3 g/dL (2.2-4.2); Glucose 87 mg/dL (74-106); PSA,Total - Annual Screen 0.29 ng/mL (0.00-4.00); Potassium 4.4 mmol/L (3.5-5.1); Protein, Total 6.8 g/dL (6.4-8.2); Sodium Level 141 mmol/L (136-145); Thyroid Stim Hormone (TSH) 2.88 uIU/mL (0.358-3.74)
[2019-07-10 13:57] LABS: Hepatitis C Antibody Non-Reactive (Nonreactive)
== END | disposition home or self-care (01) ==
LOC: POLAB3 08:57 → CVS 12:37
PROVIDERS: Family Provider Family Medicine Geriatric Medicine; PCP Family Medicine Geriatric Medicine; Referring Provider Family Medicine Geriatric Medicine; Visit Provider Family Medicine Geriatric Medicine
DX: R60.0 Localized edema (principal); R53.83 Other fatigue; Z12.5 Encounter for screening for malignant neoplasm of prostate; Z13.89 Encounter for screening for other disorder
CPT/HCPCS: 36415; 80053; 84153; 84443; 85025; 86803; 93970; G0103

== ENCOUNTER → 2019-07-18 | Outpatient (CLI) | payer MEDICARE, MEDICAID, SELFPAY ==
--- NOTE | 2019-07-18 12:51 | CT_ITS ---
STUDY: CT ABDOMEN AND PELVIS WITH CONTRAST REASON FOR EXAM: Male, 58 years old. Abdominal pain. Left upper quadrant pain. RADIATION DOSAGE (If Supplied By Facility): CTDIvol = ( 18.77 ) mGy, DLP = ( 1477.04 ) mGycm TECHNIQUE: Transaxial images were obtained from the dome of the diaphragm to the symphysis pubis with oral contrast. 100 IV/Oral Isovue 300 was administered. Sagittal and coronal images were reconstructed. Individualized dose optimization techniques were used for this CT. COMPARISON: None. FINDINGS: The visualized lung bases are unremarkable. Moderate size joint effusion. There is decreased attenuation of the liver consistent with steatosis. Normal gallbladder and extrahepatic biliary system. Normal spleen. Normal pancreas. Normal bilateral adrenal glands. Normal right kidney. Normal left kidney. There is a small hiatal hernia. Normal small intestine. Normal colon. The appendix is visualized and appears normal. Normal abdominal aorta. Normal inferior vena cava. Normal retroperitoneum. Diffusely thickened urinary bladder wall. Tiny calcific densities are seen at the base of the bladder posteriorly. This may represent a small bladder stone. Small bilateral inguinal areas containing fat. There are diffuse degenerative changes of the visualized lumbar spine. CT/Abdomen/Pelvis WITH Contrast IMPRESSION: Moderate sized pericardial effusion. Fatty infiltration of the liver. Electronically Signed: Maynor Pantoja, at 15:58 EDT , Service support ,
[2019-07-18 13:28] LABS: Absolute Lymphocyte Count 1.48 X10^3/uL (0.83-4.51); Absolute Neutrophil Count 6.4 X10^3/uL (2.0-7.7); Basophil# 0.07 X10^3/uL; Basophil% 0.8 % (0-1); Eosinophil# 0.02 X10^3/uL; Eosinophils% 0.2 % (0-5); Hematocrit 45.3 % (40-54); Hemoglobin 15.2 g/dL (13.0-16.5); Lymphocyte # 1.48 X10^3/ul (4.0); Lymphocyte % 16.2 % (19-41); Mean Corp Hgb Conc 33.6 g/dL (32-36); Mean Corpuscular Hgb 35.7 pg (27.0-32.0); Mean Corpuscular Volume 106.3 fL (80-94); Mean Platelet Vol. 9.1 fl (6.2-12.0); Monocyte# 1.02 X10^3/uL; Monocyte% 11.1 % (0-10); NRBC Flagged by Analyzer 0 % (0-5); Neutrophil # 6.37 X10^3/uL (2.7-7.7); Neutrophil % 69.5 % (47-70); Platelet Count 176 K/mm3 (150-450); RBC Distribution Width CV 13.3 % (11.6-14.6); RBC Distribution Width SD 52.4 fl (35.1-43.9); Red Blood Count 4.26 M/mm3 (4.6-6.2); White Blood Count 9.2 K/mm3 (4.4-11.0)
[2019-07-18 13:55] LABS: AST(SGOT) 30 U/L (15-37); Alanine Aminotransfer ALT/SGPT 33 U/L (16-61); Albumin, Serum 3.7 g/dL (3.2-5.0); Alkaline Phosphatase 91 U/L (45-117); Anion Gap 8 (5-15); BUN 10 mg/dL (7-18); BUN/Creat Ratio 8.5 RATIO (10-20); Calcium,Total 9.2 mg/dL (8.5-10.1); Chloride 104 mmol/L (98-107); Creatinine, Serum 1.18 mg/dL (0.70-1.30); EST Glomerular Filtration Rate 67 mL/min (>60); Est Glom Filt Rate - Afr Amer 82 mL/min (>60); Globulin 3.7 g/dL (2.2-4.2); Glucose 114 mg/dL (74-106); Potassium 4.3 mmol/L (3.5-5.1); Protein, Total 7.4 g/dL (6.4-8.2); Sodium Level 140 mmol/L (136-145)
[2019-07-19 13:03] LABS: H. Pylori Antibody (IgG) 0.65 (0.00-0.79)
== END | disposition home or self-care (01) ==
PROVIDERS: Family Provider Family Medicine Geriatric Medicine; PCP Family Medicine Geriatric Medicine; Referring Provider Family Medicine Geriatric Medicine; Visit Provider Family Medicine Geriatric Medicine
DX: R10.9 Unspecified abdominal pain (principal)
CPT/HCPCS: 36415; 74177; 80053; 85025; 86677; Q9967

== ENCOUNTER → 2019-08-02 | Outpatient (CLI) | payer MEDICARE, MEDICAID, SELFPAY ==
--- NOTE | 2019-08-02 14:56 | ECHOD_ITS ---
Version 2 Reason For Study: DIZZINESS Procedure This was a 2D Doppler, Color Flow transthoracic echocardiogram. Exam performed in department. Left Ventricle Normal LV size. The estimated ejection fraction is 60 %. No evidence for diastolic dysfunction. No regional wall motion abnormalities noted. Right Ventricle Normal RV size. Normal systolic function. Atria Normal left atrium. Normal right atrium. No doppler evidence for ASD. Mitral Valve There is no mitral valve stenosis. No mitral valve insufficiency. Tricuspid Valve There is no tricuspid stenosis. Unable to estimate RV systolic pressure due to insufficient tricuspid regurgitant envelope. Trivial eccentric tricuspid valve insufficiency. Aortic Valve Trisinus/trileaflet aortic valve. There is no aortic stenosis. No aortic valve insufficiency. Pulmonic Valve There is no pulmonic valvular stenosis. No pulmonic valve insufficiency. Great Vessels Normal aortic root. Pericardium/Pleural Moderate pericardial effusion. There are no echocardiographic indications of cardiac tamponade. Fibrinous strands. MMode/2D Measurements & Calculations LVIDd: 4.3 cm IVSd: 0.70 cm LAV(MOD-bp): 39.2 ml LVIDs: 2.8 cm LVPWd: 0.88 cm LAV(MOD-bp) Indexed: 21.5 ml/m2 RVDd: 2.3 cm FS: 35.1 % LAV(MOD-sp2): 32.3 ml LAV(MOD-sp4): 45.2 ml LA dimension(2D): 3.1 cm LA A4 area: 16.6 cm2 Time Measurements MV dec time: 0.17 sec Doppler Measurements & Calculations MV E max hans: 69.3 cm/sec Lat Peak E' Hans: 4.1 cm/sec Med Peak E' Hans: 9.7 cm/sec MV A max hans: 61.8 cm/sec E/E' lat: 17.1 E/E' med: 7.1 MV E/A: 1.1 Ao V2 max: 108.1 cm/sec LV V1 max: 76.9 cm/sec PA V2 max: 123.9 cm/sec Ao max P.7 mmHg LV V1 max P.4 mmHg TR max hans: 214.9 cm/sec TR max P.5 mmHg Interpretation Summary The estimated ejection fraction is 60 %. No evidence for diastolic dysfunction. Moderate to severe pericardial effusion. There are no echocardiographic indications of cardiac tamponade. Ordering Physician: Willard Delgadillo Referring Physician: Willard Delgadillo Chi Performed By: Jo Ann Sheldon RDCS, RVT
== END | disposition home or self-care (01) ==
LOC: CVS 14:24
PROVIDERS: Family Provider Family Medicine Geriatric Medicine; PCP Family Medicine Geriatric Medicine; Referring Provider Family Medicine Geriatric Medicine; Visit Provider Family Medicine Geriatric Medicine
DX: I31.3 Pericardial effusion (noninflammatory) (principal)
CPT/HCPCS: 93306

== ENCOUNTER 2019-08-09 19:20 | Emergency (ER) | payer MEDICARE, MEDICAID, SELFPAY ==
[2019-08-09 19:22] VITALS: BP 141/84; PULSE 83; RESP 18; TEMP 36.7; O2SAT 97; BMI 28.3
[2019-08-09 19:51] LABS: Bacteria 0 SEEN /hpf (None Seen); Mucous, Urine 0 SEEN /hpf (<or=2+); Red Blood Cells-Urine 0 SEEN /hpf (0-5); White Blood Cells 0 SEEN /hpf (0-5)
[2019-08-09 19:58] LABS: Absolute Neutrophil Count 5.7 X10^3/uL (2.0-7.7); Basophil# 0.08 X10^3/uL; Basophil% 0.9 % (0-1); Color, Urine Yellow (Yellow); Eosinophil# 0.03 X10^3/uL; Eosinophils% 0.3 % (0-5); Glucose, Dipstick Normal (Normal); Hematocrit 42.4 % (40-54); Hemoglobin 14.2 g/dL (13.0-16.5); Ketone-Dipstick Negative (Negative); Leukocyte Esterase-Dipstick Negative /ul (Negative); Lymphocyte % 20.7 % (19-41); Mean Corp Hgb Conc 33.5 g/dL (32-36); Mean Corpuscular Hgb 35.8 pg (27.0-32.0); Mean Corpuscular Volume 106.8 fL (80-94); Mean Platelet Vol. 9.3 fl (6.2-12.0); Monocyte# 0.85 X10^3/uL; Monocyte% 9.8 % (0-10); NRBC Flagged by Analyzer 0 % (0-5); Neutrophil # 5.68 X10^3/uL (2.7-7.7); Neutrophil % 65.3 % (47-70); Nitrite-Dipstick Negative (Negative); Occult Blood-Urine Negative /ul (Negative); Platelet Count 207 K/mm3 (150-450); Protein-Dipstick Negative (Negative); RBC Distribution Width CV 14.2 % (11.6-14.6); RBC Distribution Width SD 56.3 fl (35.1-43.9); Red Blood Count 3.97 M/mm3 (4.6-6.2); Urine Bilirubin Dipstick Negative (Negative); Urine Clarity Sl. Cloudy (Clear); Urine Urobilinogen Normal (Normal); White Blood Count 8.7 K/mm3 (4.4-11.0)
[2019-08-09 20:04] LABS: Anion Gap 4 (5-15); BUN 13 mg/dL (7-18); BUN/Creat Ratio 12.4 RATIO (10-20); Calcium,Total 7.9 mg/dL (8.5-10.1); Chloride 105 mmol/L (98-107); Creatinine, Serum 1.05 mg/dL (0.70-1.30); EST Glomerular Filtration Rate 77 mL/min (>60); Est Glom Filt Rate - Afr Amer 93 mL/min (>60); Estimated Creatinine Clearance 70.04 ml/min; Glucose 92 mg/dL (74-106); Potassium 3.8 mmol/L (3.5-5.1); Sodium Level 142 mmol/L (136-145)
--- NOTE | 2019-08-09 20:04 | US_ITS ---
STUDY: ABDOMINAL ULTRASOUND - RIGHT UPPER QUADRANT REASON FOR VISIT: Male, 58 years old right upper quadrant pain TECHNIQUE: Ultrasound evaluation of the right upper quadrant was performed with real-time and static stewart-scale imaging. TECHNICAL QUALITY: Limited by the patient's general condition and inability to suspend respiration. COMPARISON: Abdomen and pelvic CT exam of July 18, 2019 FINDINGS: Liver: The liver measures 14.6 cm. There is increased echogenicity consistent with fatty infiltration. The bile ducts are within normal limits. There is hepatic color flow. There is no demonstrated mass lesion. Gallbladder: Normal distended gallbladder. The gallbladder wall measures 2 mm. There is a negative sonographic Castro's sign. There is no pericholecystic fluid. Numerous small to moderate size gallstones are present. Common Bile Duct (C.B.D.): The common bile duct measures 3 mm. Pancreas: Normal size of the head, body and tail of the pancreas. There is increased echogenicity of the pancreas. There is no demonstrated pancreatic mass or cyst. Right Kidney: Normal size of the right kidney. The right kidney measures 9.9 x 4.6 x 4.2 cm. Normal renal cortex. The right cortex measures 1.4 cm. There is no demonstrated renal mass or cyst. There is no right hydronephrosis. US/Gallbladder IMPRESSION: Normal size mild fatty liver. Normally distended gallbladder with numerous small and moderate size gallstones. Nondistended common bile duct. Normal size of the pancreas with fatty change. Normal right kidney. Electronically Signed: Kira Torres MD at 23:23 EDT , Service support ,
[2019-08-09 20:14] LABS: Squamous Epithelial Cells - UA 0-5 SEEN /hpf (0-5)
--- NOTE | 2019-08-09 20:29 | EKG12_ITS ---
Test Reason : CARDIAC HX Blood Pressure : / mmHG Vent. Rate : 071 BPM Atrial Rate : 071 BPM P-R Int : 158 ms QRS Dur : 060 ms QT Int : 372 ms P-R-T Axes : 061 063 031 degrees QTc Int : 404 ms Sinus rhythm with Premature atrial complexes Otherwise normal ECG Confirmed by SHWETA BARFIELD, KAITLIN ([id number]), purchase request editor LEIF CARRIZALES ([id number]) on 08/13/2019 3:28:16 PM Referred By: DALILA Confirmed By:KAITLIN ROCK MD
[2019-08-09 20:45] LABS: AST(SGOT) 24 U/L (15-37); Alanine Aminotransfer ALT/SGPT 33 U/L (16-61); Albumin, Serum 3.1 g/dL (3.2-5.0); Alkaline Phosphatase 80 U/L (45-117); Bilirubin, Direct 0.13 mg/dL (0.00-0.30); Globulin 3.3 g/dL (2.2-4.2); Lipase 77 U/L (73-393); Protein, Total 6.4 g/dL (6.4-8.2)
--- NOTE | 2019-08-09 20:49 | ED.DCSUM_ITS ---
History of Present Illness Chief Complaint: Abd Pain Detail of Chief Complaint: Right upper quadrant Informant: Patient, Family - Mother primary informant Onset: Today - 2 hours after eating sausage with gravy and biscuits Context: Sudden Onset Timing: Continuous Quality: Pain Location: Right upper quadrant Current Severity: Mild Maximum Severity: Severe - After he ate lunch and after mother fed him biscuits with butter Worsened by: Fatty meal today Relieved by: Nothing Associated Symptoms: Nausea Narrative: Patient is a 58-year-old cognitively impaired gentleman who presents with right upper quadrant pain that occurred after eating a fatty meal for lunch and fatty meal for dinner. History is primarily by mother. There is no family history of cholelithiasis. He is not complained of right upper quadrant pain in the past. There is been no documented fever. There is been no vomiting. There is no cardiorespiratory symptoms. Prior similar symptoms: No Recent Illness/Hospitalization: No - Past Medical History (1) History of DVT (deep vein thrombosis) Status: Acute (2) History of asthma Status: Acute (3) History of gastroesophageal reflux (GERD) Status: Acute Past Medical History - Allergies and Home Meds Allergies/Adverse Reactions: Allergies No Known Allergies Allergy (Verified 08/09/19 19:24) Primary Care Physician: Zaid Puri MD [STAFF PHYSICIAN] - 1-2 Weeks Willard Delgadillo Chi, MD [Primary Care Provider] - Prior records reviewed: No Surgical History: no surgical history Lives: With Family Smoking Status: Never smoker Alcohol: None Drugs: None Review of Systems ROS: Unable to Obtain - Limited secondary to cognitive impairment General: Denies: Fever Eyes: Denies: Visual changes - bilaterally ENT: Denies: Bilateral ear pain, Rhinorrhea, Sore throat Cardiovascular: Denies: Chest pain Respiratory: Denies: Dyspnea, Cough, Dyspnea on exertion Gastrointestinal: Reports: Abdominal pain, Nausea. Denies: Vomiting, Diarrhea, Constipation, Melena, Hematochezia, -, - Genitourinary: Denies: Dysuria, Hematuria, Frequency Musculoskeletal: Denies: Myalgias, Arthralgias, Neck pain, Back pain, Swelling, Extremity Pain, -, - Skin: Denies: Rash, Wounds Hematologic: Denies: Easy bruising, Easy bleeding Physical Exam Vital Signs/Narrative: Vital Signs Temp Pulse Resp BP Pulse Ox 08/09/19 19:22 98.0 F 83 18 141/84 H 97 Inital Vital Signs reviewed: Yes General: Well nourished, Well developed, Obese, - - Peers uncomfortable with his hand over his right upper quadrant Head: Normocephalic, Atraumatic Eyes: EOMI. Negative for: Pale conjunctiva, Scleral icterus ENT: Moist mucous membranes, No rhinorrhea Neck: Supple, Nontender, No lymphadenopathy, No JVD Cardiovascular: Regular rate, Regular rhythm, No murmurs, Normal S1, Normal S2 Respiratory: No distress, CTA bilaterally, Chest nontender Abdomen: Soft, Nontender, Nondistended, Normal bowel sounds Rectal: Deferred Back: Nontender, Normal Inspection. Negative for: CVA tenderness Extremities: Nontender, No edema Skin: Normal color, No rash Neurological: Alert, Cranial nerves II-XII grossly intact, Normal Strength, Normal Sensation Psychological: Normal affect Diagnostic/Tx/Re-eval Impressions Gallbladder Ultrasound 08/09/19 20:04 IMPRESSION: Normal size mild fatty liver. Normally distended gallbladder with numerous small and moderate size gallstones. Nondistended common bile duct. Normal size of the pancreas with fatty change. Normal right kidney. Electronically Signed: Kira Torres MD at 23:23 EDT , Service support , 08/09/19 20:04 Gallbladder [US] Stat Laboratory Results 08/09/19 08/09/19 08/09/19 19:40 19:40 19:40 WBC 8.7 RBC 3.97 L Hgb 14.2 Hct 42.4 MCV 106.8 H MCH 35.8 H MCHC 33.5 RDW Std Deviation 56.3 H RDW Coeff of Marilia 14.2 Plt Count 207 MPV 9.3 Immature Gran % (Auto) 3.000 H Neut % (Auto) 65.3 Lymph % (Auto) 20.7 [place] % (Auto) 9.8 Eos % (Auto) 0.3 Baso % (Auto) 0.9 Absolute Neuts (auto) 5.7 Absolute Lymphs (auto) 1.80 Nucleated RBC % 0 Sodium 142 Potassium 3.8 Chloride 105 Carbon Dioxide 33.0 H Anion Gap 4 L BUN 13 Creatinine 1.05 Estim Creat Clear Calc 70.04 Est GFR (MDRD) Af Amer 93 Est GFR (MDRD) Non-Af 77 BUN/Creatinine Ratio 12.4 Glucose 92 Calcium 7.9 L Total Bilirubin Direct Bilirubin AST ALT Alkaline Phosphatase Total Protein Albumin Globulin Lipase Urine Color Yellow Urine Clarity Sl. Cloudy Urine pH 7.0 Ur Specific [place] 1.010 Urine Protein Negative Urine Glucose (UA) Normal Urine Ketones Negative Urine Occult Blood Negative Urine Nitrite Negative Urine Bilirubin Negative Urine Urobilinogen Normal Ur Leukocyte Esterase Negative Urine RBC 0 SEEN Urine WBC 0 SEEN Ur Squamous Epith Cells 0-5 SEEN Urine Bacteria 0 SEEN Urine Mucus 0 SEEN 08/09/19 19:40 WBC RBC Hgb Hct MCV MCH MCHC RDW Std Deviation RDW Coeff of Marilia Plt Count MPV Immature Gran % (Auto) Neut % (Auto) Lymph % (Auto) [place] % (Auto) Eos % (Auto) Baso % (Auto) Absolute Neuts (auto) Absolute Lymphs (auto) Nucleated RBC % Sodium Potassium Chloride Carbon Dioxide Anion Gap BUN Creatinine Estim Creat Clear Calc Est GFR (MDRD) Af Amer Est GFR (MDRD) Non-Af BUN/Creatinine Ratio Glucose Calcium Total Bilirubin 0.40 Direct Bilirubin 0.13 AST 24 ALT 33 Alkaline Phosphatase 80 Total Protein 6.4 Albumin 3.1 L Globulin 3.3 Lipase 77 Urine Color Urine Clarity Urine pH Ur Specific [place] Urine Protein Urine Glucose (UA) Urine Ketones Urine Occult Blood Urine Nitrite Urine Bilirubin Urine Urobilinogen Ur Leukocyte Esterase Urine RBC Urine WBC Ur Squamous Epith Cells Urine Bacteria Urine Mucus - Medical Decision Making With right upper quadrant pain after fatty meal will obtain appropriate blood work and since he ate at 4 PM will obtain ultrasound right upper quadrant at 2300. Mother was informed that he has numerous gallstones. The common bile duct appears normal. There is no edema to the gallbladder wall noted or cathy- cholecystic fluid noted. Mother informed me that he is going to [facility] to have a pericardial window. Since patient is pain-free with normal labs will discharge to home with appropriate home-going instructions and outpatient referral to general surgery on-call here versus surgeon at [facility]. ED Disposition - Plan for ED Patient: Disposition: Home or Assisted Living Diagnosis: Cholelithiasis, Biliary colic Instructions: BILIARY COLIC with Gallstone (Confirmed) Prescriptions: Hydrocodone Bitart/Apap 5-325 [Closter 5MG-325MG] 1 tab PO Q6H PRN PRN 3 Days #10 tab PRN Reason: Pain Prescription Printed Referrals: Willard Delgadillo Chi, MD [Primary Care Provider] - Zaid Puri MD [STAFF PHYSICIAN] - 1-2 Weeks Additional Instructions: No greasy, fatty foods or bladder.
[2019-08-09 22:07] VITALS: BP 122/84; PULSE 66; RESP 16; O2SAT 97
== END 2019-08-09 23:47 | disposition home or self-care (01) ==
PROVIDERS: Emergency Provider Emergency Medicine; Family Provider Family Medicine Geriatric Medicine; PCP Family Medicine Geriatric Medicine
DX: K80.70 Calculus of gallbladder and bile duct without cholecystitis without obstruction (principal); K21.9 Gastro-esophageal reflux disease without esophagitis; J45.909 Unspecified asthma, uncomplicated; Z86.718 Personal history of other venous thrombosis and embolism
CPT/HCPCS: 76705; 80048; 80076; 81001; 83690; 85025; 93005; 99282; A4216

== ENCOUNTER 2019-08-12 14:18 | Emergency (ER) | payer MEDICARE, MEDICAID, SELFPAY ==
[2019-08-12 14:18] VITALS: BP 113/71; PULSE 78; RESP 16; TEMP 36.7; O2SAT 98; BMI 27.9
--- NOTE | 2019-08-12 14:43 | EKG12_ITS ---
Test Reason : Blood Pressure : / mmHG Vent. Rate : 058 BPM Atrial Rate : 059 BPM P-R Int : 160 ms QRS Dur : 062 ms QT Int : 378 ms P-R-T Axes : 072 077 035 degrees QTc Int : 371 ms Sinus bradycardia Otherwise normal ECG Confirmed by HILLARY BARFIELD, NGOC ([id number]), photographic editor LEIF CARRIZALES ([id number]) on 08/22/2019 2:17:39 PM Referred By: Confirmed By:NGOC THORNTON MD
--- NOTE | 2019-08-12 14:47 | ED.VIS.GEN ---
History of Present Illness Chief Complaint: Abd Pain Informant: Patient Onset: Days Narrative: Patient with a history of Down syndrome presents to the ED accompanied by family who reports patient has been complaining of abdominal pain. They state that on patient was here and diagnosed with gallstones. Patient was discharged home with [facility] and they state that this is not helping the patient. Patient's last dose was at around 10 this morning. They state that patient is a history of pericardial effusion and that this needs to be addressed before patient can undergo cholecystectomy. When asked to point where the pain is, patient points to his chest. Patient denies any nausea, vomiting, diarrhea, constipation. He denies any shortness of breath. She does have a history of DVT and takes warfarin. His next INR check is tomorrow. Past Medical History - Allergies and Home Meds Allergies/Adverse Reactions: Allergies No Known Allergies Allergy (Verified 08/12/19 14:19) Primary Care Physician: Willard Delgadillo Chi, MD [Primary Care Provider] - Surgical History: no surgical history Smoking Status: Never smoker Review of Systems General: Denies: Chills, Fever, Sweats Eyes: Denies: Visual changes - bilaterally, Diplopia ENT: Denies: Rhinorrhea, Sore throat Cardiovascular: Reports: Chest pain. Denies: Palpitations Respiratory: Denies: Dyspnea, Cough, Dyspnea on exertion Gastrointestinal: Reports: Abdominal pain. Denies: Nausea, Vomiting, Diarrhea, Melena, Hematochezia Genitourinary: Denies: Dysuria, Hematuria, Frequency Musculoskeletal: Denies: Back pain, Extremity Pain Skin: Denies: Rash, Wounds Neurological: Denies: Headache, Weakness, Numbness Physical Exam Vital Signs/Narrative: Vital Signs Temp Pulse Resp BP Pulse Ox 08/12/19 14:18 98.0 F 78 16 113/71 98 General: Well nourished, Well developed, No Acute Distress Head: Normocephalic, Atraumatic Eyes: Perrl, EOMI ENT: Moist mucous membranes, No rhinorrhea Neck: Supple, Nontender Cardiovascular: Regular rate, Regular rhythm, No murmurs Respiratory: No distress, CTA bilaterally, Chest nontender Abdomen: Soft, Nontender, Nondistended, Normal bowel sounds. Negative for: Guarding, Rebound tenderness, Castro's sign Back: Nontender, Normal Inspection Extremities: Nontender, No edema Skin: Normal color, No rash Neurological: Alert, Oriented x3, Cranial nerves II-XII grossly intact, Normal Strength, Normal Sensation Psychological: Normal affect, Normal Mood Diagnostic/Tx/Re-eval - EKG Initial EKG Interpretation: No Acute Injury Pattern, Sinus Bradycardia - Vetricular rate 58 bpm - Medical Decision Making Patient presents to the ED accompanied by family. He was recently diagnosed with gallstones. When asked to localize his pain, patient points to his chest. His abdomen is soft and nontender. Negative Castro sign. He appears well and nontoxic. Patient was given 4 mg of morphine IV for symptomatic relief. Work-up here is fairly unremarkable including CBC, CMP, lipase, troponin. EKG shows no ischemic changes or dysrhythmias. Chest x-ray shows mild cardiomegaly and is unchanged from 25 days ago. At this time, I think it is safe for the patient be discharged home. He does have analgesics at home that he can take. Family was educated on signs/symptoms to return to the ED. They will follow-up with the patient's PCP. They are provided discharge instructions and agreeable to plan. ED Disposition - Plan for ED Patient: Disposition: Home or Assisted Living Diagnosis: Chest pain, Abdominal pain Instructions: BILIARY COLIC with Gallstone (Presumed), CHEST PAIN, Uncertain Cause Referrals: Willard Delgadillo Chi, MD [Primary Care Provider] -
[2019-08-12 15:36] LABS: Absolute Lymphocyte Count 1.25 X10^3/uL (0.83-4.51); Absolute Neutrophil Count 4.7 X10^3/uL (2.0-7.7); Basophil# 0.04 X10^3/uL; Basophil% 0.6 % (0-1); Eosinophil# 0.03 X10^3/uL; Eosinophils% 0.4 % (0-5); Hematocrit 41.3 % (40-54); Hemoglobin 13.8 g/dL (13.0-16.5); Lymphocyte # 1.25 X10^3/ul (4.0); Lymphocyte % 18.2 % (19-41); Mean Corp Hgb Conc 33.4 g/dL (32-36); Mean Corpuscular Hgb 35.1 pg (27.0-32.0); Mean Corpuscular Volume 105.1 fL (80-94); Monocyte% 11.6 % (0-10); NRBC Flagged by Analyzer 0 % (0-5); Neutrophil # 4.65 X10^3/uL (2.7-7.7); Neutrophil % 67.6 % (47-70); Platelet Count 183 K/mm3 (150-450); RBC Distribution Width CV 13.9 % (11.6-14.6); RBC Distribution Width SD 54.6 fl (35.1-43.9); Red Blood Count 3.93 M/mm3 (4.6-6.2); White Blood Count 6.9 K/mm3 (4.4-11.0)
[2019-08-12 15:37] LABS: ALB/GLOB Ratio 0.9 RATIO (0.9-2.4); AST(SGOT) 39 U/L (15-37); Alanine Aminotransfer ALT/SGPT 32 U/L (16-61); Albumin, Serum 3.1 g/dL (3.2-5.0); Alkaline Phosphatase 78 U/L (45-117); Anion Gap 7 (5-15); BUN 10 mg/dL (7-18); BUN/Creat Ratio 8.8 RATIO (10-20); Calcium,Total 8.4 mg/dL (8.5-10.1); Chloride 104 mmol/L (98-107); Creatinine, Serum 1.13 mg/dL (0.70-1.30); EST Glomerular Filtration Rate 71 mL/min (>60); Est Glom Filt Rate - Afr Amer 86 mL/min (>60); Estimated Creatinine Clearance 58.05 ml/min; Globulin 3.3 g/dL (2.2-4.2); Glucose 101 mg/dL (74-106); Lipase 57 U/L (73-393); Protein, Total 6.4 g/dL (6.4-8.2); Sodium Level 138 mmol/L (136-145)
--- NOTE | 2019-08-12 15:39 | RAD_ITS ---
STUDY: X-RAY CHEST REASON FOR EXAM: Male, 58 years old. Chest pain. TECHNIQUE: PA and lateral views of the chest. COMPARISON: September 18, 2014 and June 17, 2019 FINDINGS: The lungs remain hyperinflated. There are stable bibasilar streaky opacities. There is no new focal consolidation. There is stable cardiomegaly. Normal mediastinum and delvis. Normal visualized pulmonary arteries. Normal visualized aortic arch and descending thoracic aorta. There are diffuse degenerative changes of the visualized thoracic spine. There is a stable deformity of a lower thoracic vertebra. There is a stable prominence of the distal left clavicle. There is no demonstrated abnormality of the visualized soft tissue structures of the upper abdomen. RAD/Chest PA and Lateral IMPRESSION: Stable examination demonstrating no acute cardiopulmonary process. Electronically Signed: Ayleen Bravo MD at 16:07 EDT Tel , Service support ,
[2019-08-12] MEDS: Morphine 4 MG/ML Syringe IV (15:44)
[2019-08-12 15:45] LABS: International Normalized Ratio 2.3; Prothrombin Time (Protime)PT. 25.4 SECONDS (11.7-14.9)
[2019-08-12 16:24] VITALS: BP 138/87; PULSE 58; RESP 16; O2SAT 93
== END 2019-08-12 16:25 | disposition home or self-care (01) ==
PROVIDERS: Emergency Provider Physician Assistant; Family Provider Family Medicine Geriatric Medicine; PCP Family Medicine Geriatric Medicine
DX: R10.9 Unspecified abdominal pain (principal); R07.9 Chest pain, unspecified; Q90.9 Down syndrome, unspecified; Z86.718 Personal history of other venous thrombosis and embolism; Z79.01 Long term (current) use of anticoagulants
CPT/HCPCS: 71046; 80053; 83690; 84484; 85025; 85610; 93005; 96374; 99285; A4216

== ENCOUNTER → 2019-09-04 | Outpatient (CLI) | payer MEDICARE, MEDICAID, SELFPAY ==
[2019-08-12 14:18] VITALS: BMI 27.9
--- NOTE | 2019-09-04 14:38 | CT_ITS ---
STUDY: CT ABDOMEN AND PELVIS WITH CONTRAST REASON FOR EXAM: Male, 58 years old. Upper abdominal pain RADIATION DOSAGE (If Supplied By Facility): CTDIvol = ( 14.24 ) mGy, DLP = ( 1115.66 ) mGycm TECHNIQUE: Transaxial images were obtained from the dome of the diaphragm to the symphysis pubis with oral contrast. IV/Oral Isovue 370 100ml was administered. Sagittal and coronal images were reconstructed. Individualized dose optimization techniques were used for this CT. COMPARISON: None. FINDINGS: There are chronic interstitial fibrotic changes of the lung bases, with small bilateral pleural effusions, left greater than right.. The visualized portions of the heart are within normal limits. Normal liver. There is non-visualization of the gallbladder, which may be secondary to either contraction or a prior cholecystectomy. Normal spleen. Normal pancreas. Normal bilateral adrenal glands. Normal right kidney. Normal left kidney. Normal visualized stomach. Normal small intestine. Retained stool noted throughout the colon. There is non-visualization of the appendix. Normal abdominal aorta. Normal inferior vena cava. Normal retroperitoneum. There is incomplete distention of the bladder and circumferential wall thickening. Small fat-containing inguinal hernias. There are diffuse degenerative changes of the visualized lumbar spine, and pelvis. CT/Abdomen/Pelvis WITH Contrast IMPRESSION: No suspicious solid organ abnormality Retained stool noted throughout the colon No CT evidence of an acute inflammatory process Degenerative bony changes Electronically Signed: Enoch Warner MD at 17:06 EDT , Service support ,
== END | disposition home or self-care (01) ==
LOC: CT 14:36
PROVIDERS: Family Provider Family Medicine Geriatric Medicine; PCP Family Medicine Geriatric Medicine; Referring Provider Family Medicine Geriatric Medicine; Visit Provider Family Medicine Geriatric Medicine
DX: R10.9 Unspecified abdominal pain (principal)
CPT/HCPCS: 74177; Q9967

== ENCOUNTER → 2019-09-24 | Outpatient (CLI) | payer MEDICARE, MEDICAID, SELFPAY ==
--- NOTE | 2019-09-24 11:19 | VDLE_ITS ---
Reason For Study: PAIN RIGHT LEFT RT CFV ,SFJ , FV, POPV and PTV are partially GSV is normal. compressible with bright echogenicity Left CFV and SFJ are partially compressible consistent with chronic DVT. with bright echogenicity consistent with RT PeroV are dilated and NONCOMPRESSIBLE. chronic DVT. RT GSV is compressible. Left FV, PopV, T/P Trunk, PTV and PeroV are Procedure dialted and NONCOMPRESSIBLE. Exam performed in department. A preliminary report was called and/or faxed to Dr Delgadillo's office. Interpretation Summary Acute deep vein thrombosis is noted in the right peroneal vein. The remainder of the right lower extremity deep venous system demonstrates chronic venous changes. Acute deep vein thrombosis is noted in the left femoral vein, popliteal vein, tibio-peroneal trunk, posterior tibial vein, and peroneal vein. The left common femoral vein demonstrates chronic venous changes. The great saphenous veins appear bilaterally patent and compressible segmentally. There has been improvement in the right lower extremity acute deep vein thrombosis since a prior study on 07/10/2019. Ordering Physician: Willard Delgadillo Referring Physician: Willard Delgadillo Chi Performed By: Betty Dietz, BERKLEY, RVT
== END | disposition home or self-care (01) ==
LOC: CVS 11:13
PROVIDERS: Family Provider Family Medicine Geriatric Medicine; PCP Family Medicine Geriatric Medicine; Referring Provider Family Medicine Geriatric Medicine; Visit Provider Family Medicine Geriatric Medicine
DX: R60.0 Localized edema (principal); M79.609 Pain in unspecified limb
CPT/HCPCS: 93970

== ENCOUNTER → 2019-10-08 11:34 | Outpatient (CLI) | payer MEDICARE, MEDICAID, SELFPAY ==
[2019-10-08 12:22] LABS: Absolute Lymphocyte Count 1.34 X10^3/uL (0.83-4.51); Absolute Neutrophil Count 5.8 X10^3/uL (2.0-7.7); Basophil% 1.2 % (0-1); Eosinophil# 0.05 X10^3/uL; Eosinophils% 0.6 % (0-5); Hematocrit 43.6 % (40-54); Hemoglobin 14.3 g/dL (13.0-16.5); Lymphocyte # 1.34 X10^3/ul (4.0); Mean Corp Hgb Conc 32.8 g/dL (32-36); Mean Corpuscular Hgb 35.1 pg (27.0-32.0); Mean Corpuscular Volume 107.1 fL (80-94); Mean Platelet Vol. 9.7 fl (6.2-12.0); Monocyte# 0.95 X10^3/uL; Monocyte% 11.4 % (0-10); NRBC Flagged by Analyzer 0 % (0-5); Neutrophil # 5.79 X10^3/uL (2.7-7.7); Neutrophil % 69.4 % (47-70); Platelet Count 260 K/mm3 (150-450); RBC Distribution Width CV 13.3 % (11.6-14.6); RBC Distribution Width SD 53.3 fl (35.1-43.9); Red Blood Count 4.07 M/mm3 (4.6-6.2); White Blood Count 8.4 K/mm3 (4.4-11.0)
[2019-10-08 12:38] LABS: Vitamin D,25 Hydroxy 46.2 ng/mL (29.95-100.01)
[2019-10-08 12:50] LABS: ALB/GLOB Ratio 0.9 RATIO (0.9-2.4); AST(SGOT) 31 U/L (15-37); Alanine Aminotransfer ALT/SGPT 35 U/L (16-61); Albumin, Serum 3.1 g/dL (3.2-5.0); Alkaline Phosphatase 79 U/L (45-117); Anion Gap 8 (5-15); BUN 17 mg/dL (7-18); BUN/Creat Ratio 14.4 RATIO (10-20); Calcium,Total 8.5 mg/dL (8.5-10.1); Chloride 107 mmol/L (98-107); Creatinine, Serum 1.18 mg/dL (0.70-1.30); EST Glomerular Filtration Rate 67 mL/min (>60); Est Glom Filt Rate - Afr Amer 82 mL/min (>60); Globulin 3.5 g/dL (2.2-4.2); Glucose 84 mg/dL (74-106); Potassium 3.9 mmol/L (3.5-5.1); Protein, Total 6.6 g/dL (6.4-8.2); Sodium Level 141 mmol/L (136-145); Thyroid Stim Hormone (TSH) 4.65 uIU/mL (0.358-3.74)
== END ==
PROVIDERS: Family Provider Family Medicine Geriatric Medicine; PCP Family Medicine Geriatric Medicine; Visit Provider Family Medicine Geriatric Medicine
DX: E55.9 Vitamin D deficiency, unspecified (principal); R53.83 Other fatigue
CPT/HCPCS: 36415; 80053; 82306; 84443; 85025

== ENCOUNTER → 2020-01-09 10:02 | Outpatient (CLI) | payer MEDICARE, MEDICAID, SELFPAY ==
[2020-01-09 11:51] LABS: Absolute Neutrophil Count 4.7 X10^3/uL (2.0-7.7); Basophil# 0.06 X10^3/uL; Basophil% 0.8 % (0-1); Eosinophil# 0.05 X10^3/uL; Eosinophils% 0.7 % (0-5); Hematocrit 46.7 % (40-54); Hemoglobin 15.2 g/dL (13.0-16.5); Lymphocyte % 20.9 % (19-41); Mean Corp Hgb Conc 32.5 g/dL (32-36); Mean Corpuscular Hgb 33.9 pg (27.0-32.0); Mean Corpuscular Volume 104.2 fL (80-94); Monocyte# 0.81 X10^3/uL; Monocyte% 11.3 % (0-10); NRBC Flagged by Analyzer 0 % (0-5); Neutrophil # 4.73 X10^3/uL (2.7-7.7); Neutrophil % 65.9 % (47-70); Platelet Count 207 K/mm3 (150-450); RBC Distribution Width CV 13.2 % (11.6-14.6); RBC Distribution Width SD 50.8 fl (35.1-43.9); Red Blood Count 4.48 M/mm3 (4.6-6.2); White Blood Count 7.2 K/mm3 (4.4-11.0)
[2020-01-09 12:18] LABS: ALB/GLOB Ratio 0.9 RATIO (0.9-2.4); AST(SGOT) 30 U/L (15-37); Alanine Aminotransfer ALT/SGPT 41 U/L (16-61); Albumin, Serum 3.3 g/dL (3.2-5.0); Alkaline Phosphatase 93 U/L (45-117); Anion Gap 5 (5-15); BUN 15 mg/dL (7-18); BUN/Creat Ratio 11.7 RATIO (10-20); Calcium,Total 8.5 mg/dL (8.5-10.1); Chloride 106 mmol/L (98-107); Creatinine, Serum 1.28 mg/dL (0.70-1.30); EST Glomerular Filtration Rate 61 mL/min (>60); Est Glom Filt Rate - Afr Amer 74 mL/min (>60); Globulin 3.6 g/dL (2.2-4.2); Glucose 95 mg/dL (74-106); Potassium 4.5 mmol/L (3.5-5.1); Protein, Total 6.9 g/dL (6.4-8.2); Sodium Level 140 mmol/L (136-145); Thyroid Stim Hormone (TSH) 4.87 uIU/mL (0.358-3.74)
[2020-01-09 12:21] LABS: Vitamin D,25 Hydroxy 39.8 ng/mL
== END ==
PROVIDERS: PCP Family Medicine Geriatric Medicine; Visit Provider Family Medicine Geriatric Medicine
DX: R53.83 Other fatigue (principal); E55.9 Vitamin D deficiency, unspecified
CPT/HCPCS: 36415; 80053; 82306; 84443; 85025

== ENCOUNTER → 2020-04-30 | Outpatient (CLI) | payer MEDICARE, MEDICAID, SELFPAY ==
[2020-04-30 16:48] LABS: Absolute Lymphocyte Count 1.57 X10^3/uL (0.83-4.51); Absolute Neutrophil Count 3.3 X10^3/uL (2.0-7.7); Basophil# 0.07 X10^3/uL; Basophil% 1.2 % (0-1); Eosinophil# 0.09 X10^3/uL; Eosinophils% 1.6 % (0-5); Hematocrit 42.2 % (40-54); Hemoglobin 14.2 g/dL (13.0-16.5); Lymphocyte # 1.57 X10^3/ul (4.0); Lymphocyte % 27.4 % (19-41); Mean Corp Hgb Conc 33.6 g/dL (32-36); Mean Corpuscular Hgb 36.1 pg (27.0-32.0); Mean Corpuscular Volume 107.4 fL (80-94); Monocyte# 0.65 X10^3/uL; Monocyte% 11.4 % (0-10); NRBC Flagged by Analyzer 0 % (0-5); Neutrophil # 3.32 X10^3/uL (2.7-7.7); Neutrophil % 58.1 % (47-70); Platelet Count 217 K/mm3 (150-450); RBC Distribution Width SD 52.3 fl (35.1-43.9); Red Blood Count 3.93 M/mm3 (4.6-6.2); White Blood Count 5.7 K/mm3 (4.4-11.0)
[2020-04-30 17:12] LABS: ALB/GLOB Ratio 0.9 RATIO (0.9-2.4); AST(SGOT) 37 U/L (15-37); Alanine Aminotransfer ALT/SGPT 43 U/L (16-61); Alkaline Phosphatase 101 U/L (45-117); Anion Gap 5 (5-15); BUN 12 mg/dL (7-18); BUN/Creat Ratio 10.3 RATIO (10-20); Calcium,Total 8.4 mg/dL (8.5-10.1); Chloride 106 mmol/L (98-107); Creatinine, Serum 1.16 mg/dL (0.70-1.30); EST Glomerular Filtration Rate 69 mL/min (>60); Est Glom Filt Rate - Afr Amer 83 mL/min (>60); Globulin 3.5 g/dL (2.2-4.2); Glucose 84 mg/dL (74-106); Potassium 4.1 mmol/L (3.5-5.1); Protein, Total 6.5 g/dL (6.4-8.2); Sodium Level 141 mmol/L (136-145); Thyroid Stim Hormone (TSH) 2.94 uIU/mL (0.358-3.74)
== END | disposition home or self-care (01) ==
LOC: POLAB3 14:07
PROVIDERS: PCP Family Medicine Geriatric Medicine; Visit Provider Family Medicine Geriatric Medicine
DX: R53.83 Other fatigue (principal)
CPT/HCPCS: 36415; 80053; 84443; 85025

== ENCOUNTER 2020-06-24 15:07 | Emergency (ER) | payer MEDICARE, MEDICAID, SELFPAY ==
[2020-06-24 15:08] VITALS: BP 146/83; PULSE 64; RESP 22; TEMP 36.6; O2SAT 99; BMI 28.7
--- NOTE | 2020-06-24 15:24 | RAD_ITS ---
STUDY: X-RAY CHEST REASON FOR EXAM: Male, 59 years old. Chest pain started last night. TECHNIQUE: AP and lateral views of the chest. COMPARISON: Comparison is made with prior study dated 08/12/2019. FINDINGS: EKG electrodes are seen. Hyperinflation. No acute abnormality is seen. There is no demonstrated pleural abnormality. Normal size heart. Normal mediastinum and delvis. Normal visualized pulmonary arteries. Normal visualized aortic arch and descending thoracic aorta. There are diffuse degenerative changes of the visualized thoracic spine. Normal visualized ribs, clavicles, and shoulders. There is no demonstrated abnormality of the visualized soft tissue structures of the upper abdomen. RAD/Chest PA and Lateral IMPRESSION: Hyperinflation. No acute abnormality is seen. Electronically Signed: Maynor Pantoja, at 16:01 EDT , Service support ,
--- NOTE | 2020-06-24 15:24 | EKG12_ITS ---
Test Reason : CHEST PAIN Blood Pressure : / mmHG Vent. Rate : 063 BPM Atrial Rate : 063 BPM P-R Int : 148 ms QRS Dur : 064 ms QT Int : 410 ms P-R-T Axes : 080 080 038 degrees QTc Int : 419 ms Sinus rhythm with Premature supraventricular complexes Otherwise normal ECG Confirmed by CRISTINE LUU ([id number]), deputy editor in chief BRITTANI EDDY ([id number]) on 06/27/2020 10:29:32 AM Referred By: VINCE Confirmed By:CRISTINE LUU
--- NOTE | 2020-06-24 15:25 | ED.VIS.GEN ---
History of Present Illness Chief Complaint: Chest Pain Narrative: This patient is a 59-year-old male who presents with chest pain. History is primarily obtained through the mother. Patient has a history of Down syndrome. Patient presents today with chest pain. Began this morning after eating breakfast and continued through the day. He has not seemed short of breath. No vomiting. Family notes that he has had prior similar episodes but not this persistent. He is actually had multiple similar episodes ever since his cholecystectomy about a year ago. He does have a history of pericardial effusion, pericardial window. No known coronary disease. He is not diabetic. Past Medical History - Allergies and Home Meds Allergies/Adverse Reactions: Allergies No Known Allergies Allergy (Verified 08/12/19 14:19) Primary Care Physician: Willard Delgadillo Chi, MD [Primary Care Provider] - Past Medical History: - - Down syndrome, hypertension, history of pericardial window Surgical History: no surgical history Smoking Status: Never smoker Review of Systems All systems negative except as indicated General: Denies: Fever Eyes: Denies: Visual changes - bilaterally ENT: Denies: Bilateral ear pain Cardiovascular: Reports: Chest pain Respiratory: Denies: Dyspnea Gastrointestinal: Denies: Nausea, Vomiting Skin: Denies: Rash Allergy: Denies: Uticaria Physical Exam Vital Signs/Narrative: Vital Signs Temp Pulse Resp BP Pulse Ox 06/24/20 15:08 97.9 F 64 22 H 146/83 H 99 Inital Vital Signs reviewed: Yes General: Well nourished, Well developed Head: Normocephalic Eyes: EOMI ENT: Moist mucous membranes Neck: Supple Cardiovascular: Regular rate, Regular rhythm Respiratory: No distress, CTA bilaterally, Chest nontender Abdomen: Soft, Nontender, Nondistended Extremities: Nontender Skin: Normal color Neurological: Alert Psychological: Normal affect Diagnostic/Tx/Re-eval - Medical Decision Making EKG shows sinus rhythm with premature supraventricular complexes. Laboratory studies essentially unremarkable as above. Chest x-ray shows no acute process. My clinical suspicion is that this may be related to GI pathology. He does have a history of reflux. Family has noted that previously he is improved with medication such as Pepcid. However patient continues to cry and grab at his chest and appears quite Opcon comfortable despite morphine and a GI cocktail. Given that history is limited as he is unable to provide clear history I do feel further evaluation was warranted. A CT of the chest abdomen and pelvis was ordered and is pending. This will be signed out to the oncoming physician. ED Disposition - Plan for ED Patient: Diagnosis: Chest pain, Abdominal pain Referrals: Willard Delgadillo Chi, MD [Primary Care Provider] -
[2020-06-24 15:30] VITALS: O2SAT 98
[2020-06-24] MEDS: Ondansetron 4 MG/2 ML Vial IV (15:36)
[2020-06-24] MEDS: Morphine 4 MG/ML Syringe IV (15:37)
[2020-06-24 15:40] LABS: Absolute Lymphocyte Count 1.98 X10^3/uL (0.83-4.51); Absolute Neutrophil Count 3.1 X10^3/uL (2.0-7.7); Basophil# 0.06 X10^3/uL; Eosinophil# 0.06 X10^3/uL; Hematocrit 44.1 % (40-54); Hemoglobin 14.9 g/dL (13.0-16.5); Lymphocyte # 1.98 X10^3/ul (4.0); Lymphocyte % 33.7 % (19-41); Mean Corp Hgb Conc 33.8 g/dL (32-36); Mean Corpuscular Volume 103.5 fL (80-94); Mean Platelet Vol. 9.7 fl (6.2-12.0); Monocyte# 0.68 X10^3/uL; Monocyte% 11.6 % (0-10); NRBC Flagged by Analyzer 0 % (0-5); Neutrophil # 3.08 X10^3/uL (2.7-7.7); Neutrophil % 52.4 % (47-70); Platelet Count 220 K/mm3 (150-450); RBC Distribution Width CV 13.1 % (11.6-14.6); RBC Distribution Width SD 49.9 fl (35.1-43.9); Red Blood Count 4.26 M/mm3 (4.6-6.2); White Blood Count 5.9 K/mm3 (4.4-11.0)
[2020-06-24 16:01] LABS: AST(SGOT) 45 U/L (15-37); Alanine Aminotransfer ALT/SGPT 46 U/L (16-61); Albumin, Serum 3.3 g/dL (3.2-5.0); Alkaline Phosphatase 87 U/L (45-117); Anion Gap 4 (5-15); BUN 10 mg/dL (7-18); BUN/Creat Ratio 8.1 RATIO (10-20); Bilirubin, Direct 0.19 mg/dL (0.00-0.30); Calcium,Total 8.5 mg/dL (8.5-10.1); Chloride 109 mmol/L (98-107); Creatinine, Serum 1.23 mg/dL (0.70-1.30); EST Glomerular Filtration Rate 64 mL/min (>60); Est Glom Filt Rate - Afr Amer 78 mL/min (>60); Estimated Creatinine Clearance 52.69 ml/min; Globulin 3.4 g/dL (2.2-4.2); Glucose 100 mg/dL (74-106); Lipase 61 U/L (73-393); Potassium 4.3 mmol/L (3.5-5.1); Protein, Total 6.7 g/dL (6.4-8.2); Sodium Level 143 mmol/L (136-145)
[2020-06-24] MEDS: Mag Hydrox/Al Hydrox/Simeth 30 ML UDC PO (16:35)
[2020-06-24 16:37] VITALS: BP 118/101; PULSE 71; RESP 18; O2SAT 98
--- NOTE | 2020-06-24 16:49 | CT_ITS ---
STUDY: CT ABDOMEN AND PELVIS WITHOUT CONTRAST REASON FOR EXAM: Male, 59 years old. Chest and abdomen pain. Hx of Down''s syndrome with prior cholecystectomy and A/P heart window. CHF and GERD RADIATION DOSAGE (If Supplied By Facility): CTDIvol = ( 13.96 ) mGy, DLP = ( 757.63 ) mGycm TECHNIQUE: Transaxial images were obtained from the dome of the diaphragm to the symphysis pubis without oral contrast, and without intravenous contrast. Sagittal and coronal images were reconstructed. Individualized dose optimization techniques were used for this CT. COMPARISON: 09/04/2019 FINDINGS: There is minor interstitial thickening in the lungs with tiny left pleural effusion. Heart is upper normal size. Small hiatal hernia is present Liver appears mildly fatty infiltrated without mass or bile duct dilatation. Gallbladder has been removed surgically.. Normal spleen. Normal pancreas. Normal bilateral adrenal glands. Normal right kidney. Normal left kidney. Normal visualized stomach. Normal small intestine. Normal colon. No evidence for acute appendicitis Normal abdominal aorta. Normal inferior vena cava. Normal retroperitoneum. Mild prominence of the prostate in association with diffusely thick-walled bladder possibly due to chronic outlet obstruction. Small fat-containing right inguinal hernia.. Lumbar spine demonstrates advanced degenerative change. CT/Abdomen/Pelvis W IV Cont ONLY IMPRESSION: Mild nonspecific fatty infiltration of liver.. Status post cholecystectomy. Nonspecific thickening of the morillo of the bladder possibly due to chronic outlet obstruction. Cannot exclude cystitis. No evidence for small bowel obstruction or other acute abnormality. Electronically Signed: Ananda Cm MD at 17:33 EDT , Service support ,
--- NOTE | 2020-06-24 16:49 | CT_ITS ---
STUDY: CT CHEST WITH CONTRAST REASON FOR EXAM: Male, 59 years old. Chest and abdomen pain. Hx of Down''s syndrome with prior cholecystectomy and A/P heart window. CHF and GERD RADIATION DOSAGE (If Supplied By Facility): CTDIvol = ( 13.96 ) mGy, DLP = ( 757.63 ) mGycm TECHNIQUE: Transaxial imaging was performed following intravenous administration of IV 100mL Isovue-300. Individualized dose optimization techniques were used for this CT. COMPARISON: None. FINDINGS: There is minor prominence of the interstitial markings. There is no focal infiltration or pulmonary nodule.. There is a tiny left pleural effusion. Heart is upper normal size. Normal mediastinum. Normal hilar regions. Normal enhanced pulmonary arteries. Normal aorta arch and descending thoracic aorta. Dorsal spine demonstrates mild degenerative change Small hiatal hernia is present. Nonspecific fatty infiltration of the liver.. CT/Chest WITH Contrast IMPRESSION: Minor diffuse interstitial thickening.. No focal infiltration or pulmonary nodule. Tiny left pleural effusion. Electronically Signed: Ananda Cm MD at 17:29 EDT , Service support ,
[2020-06-24 18:11] VITALS: BP 108/65
== END 2020-06-24 18:12 | disposition home or self-care (01) ==
PROVIDERS: Emergency Provider Emergency Medicine; PCP Family Medicine Geriatric Medicine
DX: R07.9 Chest pain, unspecified (principal); R10.9 Unspecified abdominal pain; Q90.9 Down syndrome, unspecified
CPT/HCPCS: 71046; 71260; 74177; 80048; 80076; 83690; 84484; 85025; 85379; 93005; 96374; 96375; 99285; Q9967; A4216; J2405

== ENCOUNTER → 2020-08-13 | Outpatient (CLI) | payer MEDICARE, MEDICAID, SELFPAY ==
[2020-08-13 17:04] LABS: Absolute Lymphocyte Count 1.21 X10^3/uL (0.83-4.51); Basophil# 0.06 X10^3/uL; Basophil% 0.8 % (0-1); Eosinophil# 0.03 X10^3/uL; Eosinophils% 0.4 % (0-5); Hematocrit 43.9 % (40-54); Hemoglobin 14.5 g/dL (13.0-16.5); Lymphocyte # 1.21 X10^3/ul (4.0); Mean Corpuscular Hgb 35.8 pg (27.0-32.0); Mean Corpuscular Volume 108.4 fL (80-94); Mean Platelet Vol. 9.8 fl (6.2-12.0); Monocyte# 0.79 X10^3/uL; Monocyte% 11.1 % (0-10); NRBC Flagged by Analyzer 0 % (0-5); Neutrophil # 4.96 X10^3/uL (2.7-7.7); Neutrophil % 69.9 % (47-70); Platelet Count 242 K/mm3 (150-450); RBC Distribution Width CV 13.6 % (11.6-14.6); RBC Distribution Width SD 54.6 fl (35.1-43.9); Red Blood Count 4.05 M/mm3 (4.6-6.2); White Blood Count 7.1 K/mm3 (4.4-11.0)
[2020-08-13 17:28] LABS: AST(SGOT) 28 U/L (15-37); Alanine Aminotransfer ALT/SGPT 39 U/L (16-61); Albumin, Serum 3.4 g/dL (3.2-5.0); Alkaline Phosphatase 87 U/L (45-117); Anion Gap 5 (5-15); BUN 13 mg/dL (7-18); BUN/Creat Ratio 10.6 RATIO (10-20); Calcium,Total 8.7 mg/dL (8.5-10.1); Chloride 104 mmol/L (98-107); Creatinine, Serum 1.23 mg/dL (0.70-1.30); EST Glomerular Filtration Rate 64 mL/min (>60); Est Glom Filt Rate - Afr Amer 78 mL/min (>60); Globulin 3.5 g/dL (2.2-4.2); Glucose 90 mg/dL (74-106); Potassium 4.5 mmol/L (3.5-5.1); Protein, Total 6.9 g/dL (6.4-8.2); Sodium Level 138 mmol/L (136-145); Thyroid Stim Hormone (TSH) 3.52 uIU/mL (0.358-3.74)
== END | disposition home or self-care (01) ==
LOC: POLAB3 13:51
PROVIDERS: PCP Family Medicine Geriatric Medicine; Visit Provider Family Medicine Geriatric Medicine
DX: R53.83 Other fatigue (principal)
CPT/HCPCS: 36415; 80053; 84443; 85025

== ENCOUNTER → 2020-11-12 10:09 | Outpatient (CLI) | payer MEDICARE, MEDICAID, SELFPAY ==
[2020-11-12 15:45] LABS: Absolute Lymphocyte Count 1.42 X10^3/uL (0.83-4.51); Basophil# 0.06 X10^3/uL; Eosinophil# 0.04 X10^3/uL; Eosinophils% 0.6 % (0-5); Hemoglobin 15.4 g/dL (13.0-16.5); Lymphocyte # 1.42 X10^3/ul (4.0); Mean Corp Hgb Conc 34.2 g/dL (32-36); Mean Corpuscular Hgb 37.6 pg (27.0-32.0); Mean Corpuscular Volume 109.8 fL (80-94); Mean Platelet Vol. 9.7 fl (6.2-12.0); Monocyte# 0.66 X10^3/uL; Monocyte% 10.7 % (0-10); NRBC Flagged by Analyzer 0 % (0-5); Neutrophil # 3.97 X10^3/uL (2.7-7.7); Neutrophil % 64.4 % (47-70); Platelet Count 185 K/mm3 (150-450); RBC Distribution Width CV 12.7 % (11.6-14.6); RBC Distribution Width SD 51.1 fl (35.1-43.9); White Blood Count 6.2 K/mm3 (4.4-11.0)
[2020-11-12 15:56] LABS: AST(SGOT) 28 U/L (15-37); Alanine Aminotransfer ALT/SGPT 42 U/L (16-61); Albumin, Serum 3.4 g/dL (3.2-5.0); Alkaline Phosphatase 94 U/L (45-117); Anion Gap 6 (5-15); BUN 15 mg/dL (7-18); BUN/Creat Ratio 12.7 RATIO (10-20); Calcium,Total 8.3 mg/dL (8.5-10.1); Chloride 106 mmol/L (98-107); Creatinine, Serum 1.18 mg/dL (0.70-1.30); EST Glomerular Filtration Rate 67 mL/min (>60); Est Glom Filt Rate - Afr Amer 81 mL/min (>60); Globulin 3.3 g/dL (2.2-4.2); Glucose 96 mg/dL (74-106); Potassium 3.9 mmol/L (3.5-5.1); Protein, Total 6.7 g/dL (6.4-8.2); Sodium Level 139 mmol/L (136-145); Thyroid Stim Hormone (TSH) 3.39 uIU/mL (0.358-3.74)
== END ==
PROVIDERS: PCP Family Medicine Geriatric Medicine; Visit Provider Family Medicine Geriatric Medicine
DX: R53.83 Other fatigue (principal)
CPT/HCPCS: 36415; 80053; 84443; 85025

== ENCOUNTER 2020-12-21 16:53 | Observation (INO) | payer MEDICARE, MEDICAID, SELFPAY ==
[2020-12-12 14:14] VITALS: BMI 31.5
[2020-12-21] VITALS (8 sets, daily range): BP systolic 97–136; BP diastolic 61–78; PULSE 65–81; RESP 16–20; TEMP 35.7–36.9; O2SAT 97–100; BMI 28.3; BMI 29.7
--- NOTE | 2020-12-21 17:22 | EKG12_ITS ---
Test Reason : CP Blood Pressure : / mmHG Vent. Rate : 066 BPM Atrial Rate : 066 BPM P-R Int : 160 ms QRS Dur : 066 ms QT Int : 386 ms P-R-T Axes : 076 057 021 degrees QTc Int : 404 ms Sinus rhythm with Premature supraventricular complexes Otherwise normal ECG Confirmed by SHWETA BARFIELD, KAITLIN ([id number]), editor managing newspaper BRITTANI EDDY ([id number]) on 12/23/2020 8:26:10 AM Referred By: LIBERTY/MEGHNA Confirmed By:KAITLIN ROCK MD
--- NOTE | 2020-12-21 17:22 | CT_ITS ---
EXAM: CT ANGIOGRAPHY HEAD AND NECK WITH INTRAVENOUS CONTRAST CLINICAL INDICATION: Chest pain and syncope today. Hx CHF, prior AP window surgery, down''s syndrome. TECHNIQUE: [place]/head and neck CT angiography protocol performed with intravenous contrast. This CT exam was performed using one or more of the following dose reduction techniques: automated exposure control, adjustment of the mA and/or kV according to patient size, and/or use of iterative reconstruction technique. This report was created using mytrax report generation technology. 3D and MIP reconstructed images were created and reviewed. CONTRAST: IV 100mL Isovue-370 COMPARISON: None. FINDINGS: HEAD: RIGHT ANTERIOR CEREBRAL ARTERY: Unremarkable. No significant stenosis at the visualized segments. Anterior communicating artery is present. No aneurysm. RIGHT MIDDLE CEREBRAL ARTERY: Unremarkable. No significant stenosis at the visualized segments. No aneurysm. RIGHT POSTERIOR CEREBRAL ARTERY: Unremarkable. No occlusion or significant stenosis. No aneurysm. LEFT ANTERIOR CEREBRAL ARTERY: Unremarkable. No significant stenosis at the visualized segments. No aneurysm. LEFT MIDDLE CEREBRAL ARTERY: Unremarkable. No significant stenosis at the visualized segments. No aneurysm. LEFT POSTERIOR CEREBRAL ARTERY: Unremarkable. No occlusion or significant stenosis. No aneurysm. BASILAR ARTERY: Unremarkable. No significant stenosis. No aneurysm. GREAT VESSELS OF AORTIC ARCH: Unremarkable. Normal anatomy, patent. OTHER VASCULATURE: No vascular malformation. NECK: RIGHT COMMON CAROTID ARTERY: Unremarkable. No significant stenosis. No dissection or occlusion. RIGHT INTERNAL CAROTID ARTERY: Unremarkable. No significant stenosis. No dissection or occlusion. RIGHT EXTERNAL CAROTID ARTERY: Unremarkable. No occlusion. RIGHT VERTEBRAL ARTERY: Unremarkable. No significant stenosis. No dissection or occlusion. LEFT COMMON CAROTID ARTERY: Unremarkable. No significant stenosis. No dissection or occlusion. LEFT INTERNAL CAROTID ARTERY: Unremarkable. No significant stenosis. No dissection or occlusion. LEFT EXTERNAL CAROTID ARTERY: Unremarkable. No occlusion. LEFT VERTEBRAL ARTERY: Unremarkable. No significant stenosis. No dissection or occlusion. LUNG APICES: Unremarkable as visualized. SOFT TISSUES: Unremarkable. CAROTID STENOSIS REFERENCE USING NASCET CRITERIA: % ICA stenosis = (1 - narrowest ICA diameter/diameter of distal cervical ICA) x 100. Mild - <50% stenosis. Moderate - 50-69% stenosis. Severe - 70-94% stenosis. Near occlusion - 95-99% stenosis. Occluded - 100% stenosis. IMPRESSION: Negative CTA carotid and CTA brain. EXAM: CT HEAD WITHOUT INTRAVENOUS CONTRAST CLINICAL INDICATION: Chest pain and syncope today. Hx CHF, prior AP window surgery, down''s syndrome. TECHNIQUE: Multiple axial images were obtained of the head without intravenous contrast. This CT exam was performed using one or more of the following dose reduction techniques: automated exposure control, adjustment of the mA and/or kV according to patient size, and/or use of iterative reconstruction technique. This report was created using mytrax report Rock[employer] technology. Coronal and sagittal reformatted images were created and reviewed. COMPARISON: None. FINDINGS: BRAIN AND EXTRA-AXIAL SPACES: Unremarkable. No intra- or extra-axial hemorrhage. No evidence of acute infarct. No intracranial mass or mass effect. There is preservation of the stewart/white matter interface. Posterior fossa structures are unremarkable. Ventricles are appropriate for age. No hydrocephalus. Basal cisterns are patent. BONES/JOINTS: Unremarkable. No discrete lytic or blastic abnormalities. SINUSES: Unremarkable as visualized. Clear. MASTOID AIR CELLS: Unremarkable. Clear. ORBITS: Visualized globes, extraocular muscles, optic nerves and retrobulbar fat appear unremarkable. IMPRESSION: Negative head/brain CT without intravenous contrast. Electronically Signed: Aleksandar Ramon MD ([place]) at 18:43 EST , Service support , EXAM: CT ANGIOGRAPHY HEAD AND NECK WITH INTRAVENOUS CONTRAST CLINICAL INDICATION: Chest pain and syncope today. Hx CHF, prior AP window surgery, down''s syndrome. TECHNIQUE: [place]/head and neck CT angiography protocol performed with intravenous contrast. This CT exam was performed using one or more of the following dose reduction techniques: automated exposure control, adjustment of the mA and/or kV according to patient size, and/or use of iterative reconstruction technique. This report was created using mytrax report Rock[employer] technology. 3D and MIP reconstructed images were created and reviewed. CONTRAST: IV 100mL Isovue-370 COMPARISON: None. FINDINGS: HEAD: RIGHT ANTERIOR CEREBRAL ARTERY: Unremarkable. No significant stenosis at the visualized segments. Anterior communicating artery is present. No aneurysm. RIGHT MIDDLE CEREBRAL ARTERY: Unremarkable. No significant stenosis at the visualized segments. No aneurysm. RIGHT POSTERIOR CEREBRAL ARTERY: Unremarkable. No occlusion or significant stenosis. No aneurysm. LEFT ANTERIOR CEREBRAL ARTERY: Unremarkable. No significant stenosis at the visualized segments. No aneurysm. LEFT MIDDLE CEREBRAL ARTERY: Unremarkable. No significant stenosis at the visualized segments. No aneurysm. LEFT POSTERIOR CEREBRAL ARTERY: Unremarkable. No occlusion or significant stenosis. No aneurysm. BASILAR ARTERY: Unremarkable. No significant stenosis. No aneurysm. GREAT VESSELS OF AORTIC ARCH: Unremarkable. Normal anatomy, patent. OTHER VASCULATURE: No vascular malformation. NECK: RIGHT COMMON CAROTID ARTERY: Unremarkable. No significant stenosis. No dissection or occlusion. RIGHT INTERNAL CAROTID ARTERY: Unremarkable. No significant stenosis. No dissection or occlusion. RIGHT EXTERNAL CAROTID ARTERY: Unremarkable. No occlusion. RIGHT VERTEBRAL ARTERY: Unremarkable. No significant stenosis. No dissection or occlusion. LEFT COMMON CAROTID ARTERY: Unremarkable. No significant stenosis. No dissection or occlusion. LEFT INTERNAL CAROTID ARTERY: Unremarkable. No significant stenosis. No dissection or occlusion. LEFT EXTERNAL CAROTID ARTERY: Unremarkable. No occlusion. LEFT VERTEBRAL ARTERY: Unremarkable. No significant stenosis. No dissection or occlusion. LUNG APICES: Unremarkable as visualized. SOFT TISSUES: Unremarkable. CAROTID STENOSIS REFERENCE USING NASCET CRITERIA: % ICA stenosis = (1 - narrowest ICA diameter/diameter of distal cervical ICA) x 100. Mild - <50% stenosis. Moderate - 50-69% stenosis. Severe - 70-94% stenosis. Near occlusion - 95-99% stenosis. Occluded - 100% stenosis. IMPRESSION: Negative CTA carotid and CTA brain. EXAM: CT HEAD WITHOUT INTRAVENOUS CONTRAST CLINICAL INDICATION: Chest pain and syncope today. Hx CHF, prior AP window surgery, down''s syndrome. TECHNIQUE: Multiple axial images were obtained of the head without intravenous contrast. This CT exam was performed using one or more of the following dose reduction techniques: automated exposure control, adjustment of the mA and/or kV according to patient size, and/or use of iterative reconstruction technique. This report was created using mytrax report Rock[employer] technology. Coronal and sagittal reformatted images were created and reviewed. COMPARISON: None. FINDINGS: BRAIN AND EXTRA-AXIAL SPACES: Unremarkable. No intra- or extra-axial hemorrhage. No evidence of acute infarct. No intracranial mass or mass effect. There is preservation of the stewart/white matter interface. Posterior fossa structures are unremarkable. Ventricles are appropriate for age. No hydrocephalus. Basal cisterns are patent. BONES/JOINTS: Unremarkable. No discrete lytic or blastic abnormalities. SINUSES: Unremarkable as visualized. Clear. MASTOID AIR CELLS: Unremarkable. Clear. ORBITS: Visualized globes, extraocular muscles, optic nerves and retrobulbar fat appear unremarkable. CT/CTA Head AND Neck W/ Contrast
[2020-12-21 17:32] LABS: Absolute Lymphocyte Count 1.73 X10^3/uL (0.83-4.51); Absolute Neutrophil Count 6.6 X10^3/uL (2.0-7.7); Basophil# 0.11 X10^3/uL; Basophil% 1.1 % (0-1); Eosinophil# 0.09 X10^3/uL; Eosinophils% 0.9 % (0-5); Hematocrit 44.5 % (40-54); Hemoglobin 14.6 g/dL (13.0-16.5); Lymphocyte # 1.73 X10^3/ul (4.0); Lymphocyte % 17.6 % (19-41); Mean Corp Hgb Conc 32.8 g/dL (32-36); Mean Corpuscular Hgb 35.4 pg (27.0-32.0); Mean Platelet Vol. 9.6 fl (6.2-12.0); Monocyte# 1.25 X10^3/uL; Monocyte% 12.7 % (0-10); NRBC Flagged by Analyzer 0 % (0-5); Neutrophil # 6.62 X10^3/uL (2.7-7.7); Neutrophil % 67.2 % (47-70); Platelet Count 276 K/mm3 (150-450); RBC Distribution Width CV 12.6 % (11.6-14.6); RBC Distribution Width SD 50.5 fl (35.1-43.9); Red Blood Count 4.12 M/mm3 (4.6-6.2); White Blood Count 9.9 K/mm3 (4.4-11.0)
[2020-12-21] MEDS: 0.9% Normal Saline 1,000 ML 150 ML IV (17:39)
[2020-12-21] MEDS: Aspirin 81 MG TAB.CHEW 162 MG PO (17:39)
[2020-12-21 17:44] LABS: Anion Gap 6 (5-15); BUN 20 mg/dL (7-18); BUN/Creat Ratio 15.6 RATIO (10-20); Chloride 102 mmol/L (98-107); Creatinine, Serum 1.28 mg/dL (0.70-1.30); EST Glomerular Filtration Rate 61 mL/min (>60); Est Glom Filt Rate - Afr Amer 74 mL/min (>60); Estimated Creatinine Clearance 52.03 ml/min; Glucose 100 mg/dL (74-106); Lipase 76 U/L (73-393); Potassium 4.1 mmol/L (3.5-5.1); Sodium Level 137 mmol/L (136-145)
[2020-12-21 17:47] LABS: D-Dimer Quantitative (DVT/PE) 0.66 FEU/ug/m (0.27-0.49)
--- NOTE | 2020-12-21 17:50 | CT_ITS ---
EXAM: CT ANGIOGRAPHY CHEST WITHOUT AND WITH INTRAVENOUS CONTRAST CLINICAL INDICATION: Chest pain and syncope today. Hx CHF, prior AP window surgery, down''s syndrome. TECHNIQUE: Helically acquired angiography images were obtained of the chest without and with intravenous contrast. This CT exam was performed using one or more of the following dose reduction techniques: automated exposure control, adjustment of the mA and/or kV according to patient size, and/or use of iterative reconstruction technique. This report was created using [employer] report generation technology. MIP reconstructed images were created and reviewed. CONTRAST: IV 100mL Isovue-370 COMPARISON: None. FINDINGS: LIMITATIONS: Limited by motion artifact. PULMONARY ARTERIES: Unremarkable. Normal in caliber. No evidence of pulmonary embolism. AORTA: Unremarkable. Normal in caliber. No evidence of dissection. GREAT VESSELS OF AORTIC ARCH: Unremarkable. Normal in caliber. No evidence of dissection. LUNGS AND PLEURAL SPACES: Mosaic attenuation of the lungs may represent air trapping or mild pneumonitis/edema. No mass. No pleural effusion or thickening. HEART: There is mild cardiomegaly. No pericardial effusion. No signs of right heart strain. MEDIASTINUM: There is a small hiatal hernia. No mediastinal or hilar adenopathy. Esophagus is unremarkable. THYROID: Unremarkable. No thyroid lesions. BONES/JOINTS: There are degenerative changes throughout the thoracic spine. No suspicious lytic or blastic abnormality. CT/CTA Chest W/WO Contrast IMPRESSION: 1. Mosaic attenuation of the lungs may represent air trapping or mild pneumonitis/edema. 2. No central or segmental pulmonary embolism. Electronically Signed: Aleksandar Ramon MD ([place]) at 18:30 EST , Service support ,
--- NOTE | 2020-12-21 18:01 | ED.VISSUMM ---
- ER Visit Summary Date of Service: 12/21/20 Chief Complaint: [Syncope, chest pain, and headache] History of Present Illness: The patient is a 60 M [presents to the emergency department from home with his mother who gives most of the history. Patient does have history of Down syndrome. Patient's mother states that she was given a haircut when he had a syncopal episode and was unresponsive for about a minute. He had complained of a headache prior to that. Patient apparently has been getting frequent headaches and apparently has an MRI of his neck scheduled after following up with a neurosurgeon recently. Patient also started complaining of chest pain after a syncopal episode. His mother states that he sometimes complains of chest pain that is really more epigastric discomfort so she gave him a Pepcid. Patient has had his gallbladder removed and since that time has been complaining of similar pains. Patient has history of pericardial effusion with pericardial window. Pericardial window was performed at the same time as his gallbladder was removed.] Physical Examination: [HEENT-PERRLA, EOMI. Cranial nerves II through XII grossly intact. TMs clear. Mucous membranes moist. No adenopathy. Cardiovascular-regular rate and rhythm without murmur or ectopy Lungs-clear to auscultation, chest wall stable without crepitus or subcu emphysema Abdomen-normoactive bowel sounds, soft. Patient has some mild tenderness in the epigastric region. There is no rebound, rigidity, or peritoneal signs. Extremities-intact ?4, normal range of motion, normal pulses, atraumatic] Test Results: [EKG obtained arrival shows sinus rhythm with a ventricular rate of 66 bpm with occasional PACs. CBC with differential showing a 9.9, hemoglobin 14.6, hematocrit 44, platelets 276. Chemistries unremarkable. Lipase was 76. Troponin was less than 0.015. D-dimer was 0.66.] CTA of the head and neck were normal. CT of the chest was negative. Emergency Department Course and Treatment: [Line established. Patient placed on comic illustrator.] Given aspirin Treatment Plan: [Admit] Disposition: [Admit] Impression: [Syncope-etiology uncertain Chest pain] This note was generated with [employer] software. It may contain incorrect words, spelling, and punctuation that were not noted in review of the chart prior to signing ED Disposition - Plan for ED Patient: Referrals: Willard Delgadillo Chi, MD [Primary Care Provider] -
--- NOTE | 2020-12-21 19:50 | PCM.HP.STD ---
Problem List (1) Chest pain Status: Acute (2) History of DVT (deep vein thrombosis) Status: Chronic (3) History of asthma Status: Chronic (4) History of gastroesophageal reflux (GERD) Status: Chronic History of Present Illness Date of Admission: 12/21/20 Chief Complaint: Syncope The patient is a 60 year old M with a significant history of Down syndrome; asthma; DVT; history of pericardial window who presents emergency department with syncope. Her mother who is the cardiovascular technician and who provided history stated that while she was giving patient a haircut patient slumped over and became unresponsive. This was for a brief moment. Patient's mother thought that the patient was too hot that is why she had a syncopal episode as patient was draped in some kind of apparel. Afterwards patient complained of chest pain. Chest pain is substernal. Patient has had chest pain for many years. Per mother patient chest pain began after patient had a cholecystectomy. Patient also have a headache. Patient has had neck pain that he follows up with Dr Goncalves and has MRI planned. Past Medical History Past Medical History (Chronic Problems): Chronic Problems (Last Reviewed 12/21/20 @ 20:[address] Jean Caceres MD) History of DVT (deep vein thrombosis) (Chronic) History of asthma (Chronic) History of gastroesophageal reflux (GERD) (Chronic) Medical History: Medical History (Last Reviewed 12/21/20 @ 20:[address] Jean Caceres MD) H/o window in heart Allergies house dust Allergy (Mild, Verified 12/12/20 14:16) sinus Home Medications: Ambulatory Orders Medication Instructions Recorded Montelukast [Singulair] 10 mg PO DAILY 08/07/18 Cholecalciferol (VIT D3) [Vitamin 1,000 unit PO DAILY 06/24/20 D] Cyanocobalamin (Vitamin B-12) 1,000 mcg PO DAILY 06/24/20 [B-12] Multivitamin with Minerals 1 tab PO DAILY 06/24/20 [Multiple Vitamin] Rivaroxaban [Xarelto] 20 mg PO DAILY 06/24/20 doxycycline hyclate 50 mg tablet 50 mg PO DAILY tab 12/12/20 pantoprazole 40 mg tablet,delayed 40 tab PO BID 12/12/20 release Surgical History: Surgical History (Last Updated 12/12/20 @ 14:25 by Sana Ramirez) H/O eye surgery Z98.890 History of cholecystectomy Z90.49 Smoking Status: Never smoker - *Family History Paternal Family History: Family History (Last Reviewed 12/21/20 @ 20:[address] Jean Caceres MD) Mother Arthritis Hypertension History Items: Heart Disease - His father had heart disease in his 50s. Maternal Family History: Family History (Last Reviewed 12/21/20 @ 20:[address] Jean Caceres MD) Mother Arthritis Hypertension Review of Systems Constitutional: Denies: Chills, Fever, Weight Change HEENT: Reports: Head Aches. Denies: Sinus Congestion, Sinus Drainage Cardiovascular: Reports: Chest Pain, Syncope. Denies: Palpitations Respiratory: Denies: Cough, Shortness of breath at rest, Sputum production Gastrointestinal: Denies: Abdominal Pain, Nausea, Vomiting Genitourinary: Denies: Dysuria Musculoskeletal: Reports: Neck Pain. Denies: Joint Pain, Joint Tenderness Skin: Denies: Rash, Wounds Neurological: Denies: Numbness, Tingling, Focal weakness Psychiatric: Denies: Anxiety, Depression, Homicidal Ideations, Suicidal Ideations Hematologic/ Lymphatic: Denies: Easy Bruising, Easy Bleeding VTE Information - Inpt Only VTE Present on Admission: No VTE Mechan Device Prophylaxis: None VTE Pharm Prophylaxis ordered?: No Reason prophylaxis not ordered:: Treatment Not Indicated - On Xarelto for history of DVT; continued. Patient Problems: Active and Suspected Problems (Last Reviewed 12/21/20 @ 20:[address] Jean Caceres MD) Chest pain (Acute) - Physical Exam Vitals/I&O's: Vital Signs Temp Pulse Resp BP Pulse Ox 96.3 F L 68 17 128/77 H 98 12/21/20 16:54 12/21/20 19:04 12/21/20 19:04 12/21/20 19:04 12/21/20 19:04 Oxygen Delivery Method Room Air Weight: 74.8 kg Body Mass Index (BMI) 28.3 General: Alert, Cooperative, - HEENT: Atraumatic, PERRLA, EOMI, Normocephalic Neck: Supple, No JVD, Negative Carotid Bruits Lungs: Clear to auscultation, Normal air movement Cardiovascular: Regular rate, Normal S1, Normal S2, No murmurs Abdomen: Bowel Sounds Present, Soft, Non Tender Extremities: Capillary Refill Less than 3 Seconds, - - left lower leg and left foot in braces Skin: No rashes, No breakdown Musculoskeletal: No Tenderness to Palpation of Joints or Extremities Neurological: Cranial nerves II-XII grossly intact Psych/Mental Status: Normal Affect, Appropriate Laboratory Results 12/21/20 17:00: WBC 9.9, RBC 4.12 L, Hgb 14.6, Hct 44.5, MCV 108.0 H, MCH 35.4 H, MCHC 32.8, RDW Std Deviation 50.5 H, RDW Coeff of Marilia 12.6, Plt Count 276, MPV 9.6, Immature Gran % (Auto) 0.500, Neut % (Auto) 67.2, Lymph % (Auto) 17.6 L, [place] % (Auto) 12.7 H, Eos % (Auto) 0.9, Baso % (Auto) 1.1 H, Absolute Neuts (auto) 6.6, Absolute Lymphs (auto) 1.73, Nucleated RBC % 0 12/21/20 17:00: D-Dimer Quant (PE/DVT) 0.66 H* 12/21/20 17:00: Sodium 137, Potassium 4.1, Chloride 102, Carbon Dioxide 29.0, Anion Gap 6, BUN 20 H, Creatinine 1.28, Estim Creat Clear Calc 52.03, Est GFR (MDRD) Af Amer 74, Est GFR (MDRD) Non-Af 61, BUN/Creatinine Ratio 15.6, Glucose 100, Calcium 9.0, Troponin I < 0.015, Lipase 76 Current Medications Sodium Chloride () 1,000 mls @ 150 mls/hr IV .Q6H40M HOLDEN Last Admin: 12/21/20 17:39 Dose: 150 mls/hr Documented by: Assessment/Plan All Active Problems (Last Reviewed 12/21/20 @ 20:[address] Jean Caceres MD) Chest pain (Acute) The patient is a 60 year old M with a significant history of Down syndrome; asthma; DVT; history of pericardial window who presents emergency department with syncope and chest pain. Syncope Echocardiogram ordered. Orthostatic vitals per protocol. Normal saline IV hydration ordered. Head and neck CT was unremarkable Chest pain Mylanta 30 mils x1 and then as needed. Place on a monitored bed at PCU PCU was elevated. Chest CT showed mosaic at the mission of the lungs. No clinical symptoms of pneumonia. EKG with normal sinus rhythm and occasional PVCs. ASA 81 mg p.o. daily ordered SL NTG 0.4 mg prn as needed for chest pain ordered Morphine as needed for pain ordered We will check lipid panel. Serial cardiac enzymes ordered Stat EKG as needed for chest pain Chemical Stress test in the AM if the cardiac enzymes are negative DVT prophylaxis ordered. History of GERD Pantoprazole continued Mylanta ordered as above. History of DVT Continued Asthma Stable Singular continued Rash Doxycycline continued Vitamin D deficiency Vitamin D continued DVT prophylaxis On Xarelto; continued. OBSV E&M: [id number] Initial observation care L2
--- NOTE | 2020-12-21 20:29 | ECHOD_ITS ---
Reason For Study: Syncope Procedure This was a 2D Doppler, Color Flow transthoracic echocardiogram. Technically difficult apical window. Exam performed portable in patient room. Left Ventricle Normal LV size. Left ventricular systolic function is normal. The estimated ejection fraction is 55 %. Normal diastology for age. No regional wall motion abnormalities noted. Right Ventricle Normal RV size. Normal systolic function. Atria Normal left atrium. Normal right atrium. Mitral Valve Normal mitral valve. Tricuspid Valve Normal tricuspid valve. Aortic Valve Normal aortic valve. Pulmonic Valve The pulmonic valve is not well visualized. Great Vessels Normal aortic root. The pulmonary artery is normal size. Normal inferior vena cava. Pericardium/Pleural No pericardial effusion. MMode/2D Measurements & Calculations LVIDd: 3.6 cm IVSd: 0.87 cm Ao root diam: 3.2 cm LVIDs: 2.1 cm LVPWd: 1.0 cm LA dimension: 3.1 cm FS: 40.4 % Time Measurements MV dec time: 0.33 sec Doppler Measurements & Calculations MV E max hans: 66.8 cm/sec Lat Peak E' Hans: 9.1 cm/sec Med Peak E' Hans: 7.8 cm/sec MV A max hans: 60.7 cm/sec E/E' lat: 7.3 E/E' med: 8.6 MV E/A: 1.1 MV V2 max: 88.3 cm/sec MV P1/2t max hans: 88.3 cm/sec Ao V2 max: 109.7 cm/sec MV max P.1 mmHg MV P1/2t: 88.1 msec Ao max P.8 mmHg MV V2 mean: 43.6 cm/sec MV mean P.96 mmHg MV dec slope: 293.8 cm/sec2 MV V2 VTI: 27.7 cm MVA(P1/2t): 2.5 cm2 LV V1 max: 84.4 cm/sec PA V2 max: 103.0 cm/sec LV V1 max P.9 mmHg Interpretation Summary Normal LV size. Left ventricular systolic function is normal. The estimated ejection fraction is 55 %. Structurally normal valves. Ordering Physician: Jean Caceres Referring Physician: Willard Delgadillo Chi Performed By: Tj Estes RCS
--- NOTE | 2020-12-21 20:32 | EKG12_ITS ---
Test Reason : CP ADMISSION Blood Pressure : / mmHG Vent. Rate : 062 BPM Atrial Rate : 062 BPM P-R Int : 162 ms QRS Dur : 076 ms QT Int : 406 ms P-R-T Axes : 078 054 023 degrees QTc Int : 412 ms Sinus rhythm with marked sinus arrhythmia Otherwise normal ECG When compared with ECG of 21-DEC-2020 16:58, MANUAL COMPARISON REQUIRED, DATA IS UNCONFIRMED Confirmed by SHWETA BARFIELD, KAITLIN ([id number]), content editor BRITTANI EDDY ([id number]) on 12/23/2020 8:29:42 AM Referred By: MARCELINA Confirmed By:KAITLIN ROCK MD
--- NOTE | 2020-12-21 21:00 | NURSING ---
Pt unable to answer admission questions completely at this time. Will call mother.
[2020-12-21] MEDS: 0.9% Normal Saline 1,000 ML 100 ML IV (21:01)
[2020-12-21] MEDS: Acetaminophen 325 MG Tablet 650 MG PO (21:09)
[2020-12-21] MEDS: Pantoprazole Sodium 40 MG Tablet PO (21:10)
[2020-12-21] MEDS: Mag Hydrox/Al Hydrox/Simeth 30 ML UDC PO (21:13)
--- NOTE | 2020-12-21 22:49 | PCS.PANDOC ---
PANDEMIC DOCUMENTATION INITIATED: Date: 12/21/20 Time: 20:30
[2020-12-22 02:50] VITALS: BP 107/62; BP 116/61; PULSE 68; PULSE 73; RESP 18; TEMP 36.6; O2SAT 95
--- NOTE | 2020-12-22 02:50 | NURSING ---
While obtaining orthos on pt, was unable to get standing BP. After several attempts pt was unable to stand and try anymore.
[2020-12-22] MEDS: 0.9% Saline Lock 10 ML Syringe IV (03:07)
[2020-12-22 03:39] VITALS: PULSE 56
--- NOTE | 2020-12-22 05:55 | EKG12_ITS ---
Test Reason : AM EKG Blood Pressure : / mmHG Vent. Rate : 054 BPM Atrial Rate : 054 BPM P-R Int : 172 ms QRS Dur : 080 ms QT Int : 418 ms P-R-T Axes : 077 060 033 degrees QTc Int : 396 ms Sinus bradycardia Otherwise normal ECG When compared with ECG of 21-DEC-2020 21:29, MANUAL COMPARISON REQUIRED, DATA IS UNCONFIRMED Confirmed by SHWETA BARFIELD, KAITLIN ([id number]), newspaper copy editor BRITTANI EDDY ([id number]) on 12/23/2020 8:29:05 AM Referred By: MARCELINA Confirmed By:KAITLIN ROCK MD
[2020-12-22 06:01] VITALS: BP 106/56; PULSE 62; RESP 18; TEMP 36.7; O2SAT 99
[2020-12-22] MEDS: Aspirin 81 MG TAB.CHEW PO (06:02)
[2020-12-22] MEDS: 0.9% Normal Saline 1,000 ML 100 ML IV (06:06)
[2020-12-22 06:20] LABS: Absolute Lymphocyte Count 1.14 X10^3/uL (0.83-4.51); Absolute Neutrophil Count 2.8 X10^3/uL (2.0-7.7); Basophil# 0.05 X10^3/uL; Eosinophil# 0.07 X10^3/uL; Eosinophils% 1.4 % (0-5); Hematocrit 38.3 % (40-54); Hemoglobin 12.7 g/dL (13.0-16.5); Lymphocyte # 1.14 X10^3/ul (4.0); Lymphocyte % 23.2 % (19-41); Mean Corp Hgb Conc 33.2 g/dL (32-36); Mean Corpuscular Hgb 35.6 pg (27.0-32.0); Mean Corpuscular Volume 107.3 fL (80-94); Mean Platelet Vol. 9.2 fl (6.2-12.0); Monocyte# 0.79 X10^3/uL; Monocyte% 16.1 % (0-10); NRBC Flagged by Analyzer 0 % (0-5); Neutrophil # 2.84 X10^3/uL (2.7-7.7); Neutrophil % 57.9 % (47-70); Platelet Count 227 K/mm3 (150-450); RBC Distribution Width CV 12.5 % (11.6-14.6); RBC Distribution Width SD 50.4 fl (35.1-43.9); Red Blood Count 3.57 M/mm3 (4.6-6.2); White Blood Count 4.9 K/mm3 (4.4-11.0)
[2020-12-22 06:41] LABS: Anion Gap 6 (5-15); BUN 14 mg/dL (7-18); BUN/Creat Ratio 14.1 RATIO (10-20); Chloride 107 mmol/L (98-107); Cholesterol 152 mg/dL (200); Creatinine, Serum 0.99 mg/dL (0.70-1.30); EST Glomerular Filtration Rate 82 mL/min (>60); Est Glom Filt Rate - Afr Amer 99 mL/min (>60); Estimated Creatinine Clearance 62.05 ml/min; Glucose 93 mg/dL (74-106); High Density Lipoprotein 46 mg/dL; Potassium 4.2 mmol/L (3.5-5.1); Sodium Level 140 mmol/L (136-145); Triglycerides 96 mg/dL; Very Low Density Lipoprotein 19 mg/dL (5-40)
[2020-12-22 06:54] VITALS: PULSE 64
--- NOTE | 2020-12-22 08:05 | PN_ITS ---
Patient Problems: Active and Suspected Problems (Last Reviewed 12/21/20 @ 20:[address] Jean Caceres MD) Chest pain (Acute) Vitals/I&O's: Vital Signs Temp Pulse Resp BP Pulse Ox 98.1 F 64 18 106/56 L 99 12/22/20 06:01 12/22/20 06:54 12/22/20 06:01 12/22/20 06:01 12/22/20 06:01 Oxygen Delivery Method Room Air Weight: 162 lb 7.691 oz Body Mass Index (BMI) 29.7 Orthostatic Vital Signs Start: 12/22/20 03:46 Freq: q24h Status: Active Protocol: Activity Type Activity Date Activity User E-Sign Co-Sign Detail Recorded Client Recorded Date Recorded By Document 12/22/20 02:50 CHARAN [id number] 12/22/20 03:47 CHARAN 12/22/20 02:50 Orthostatic Vitals Sitting -Blood Pressure (90/60-120/80 mm Hg) 116/61 -Extremity Use Right Arm -Pulse Rate (60-100 beats/min) 73 Lying -Blood Pressure (90/60-120/80 mm Hg) 107/62 -Extremity Use Right Arm -Pulse Rate (60-100 beats/min) 68 Intake and Output for Last 24 Hours 12/20/20 12/21/20 12/22/20 23:59 23:59 23:59 Intake Total 1000 / 1060 968.33 / 968.33 Balance 1000 / 1060 968.33 / 968.33 Laboratory Results 12/21/20 17:00: WBC 9.9, RBC 4.12 L, Hgb 14.6, Hct 44.5, MCV 108.0 H, MCH 35.4 H , MCHC 32.8, RDW Std Deviation 50.5 H, RDW Coeff of Marilia 12.6, Plt Count 276, MPV 9.6, Immature Gran % (Auto) 0.500, Neut % (Auto) 67.2, Lymph % (Auto) 17.6 L, [place] % (Auto) 12.7 H, Eos % (Auto) 0.9, Baso % (Auto) 1.1 H, Absolute Neuts (auto) 6.6, Absolute Lymphs (auto) 1.73, Nucleated RBC % 0 12/21/20 17:00: D-Dimer Quant (PE/DVT) 0.66 H* 12/21/20 17:00: Sodium 137, Potassium 4.1, Chloride 102, Carbon Dioxide 29.0, Anion Gap 6, BUN 20 H, Creatinine 1.28, Estim Creat Clear Calc 52.03, Est GFR (MDRD) Af Amer 74, Est GFR (MDRD) Non-Af 61, BUN/Creatinine Ratio 15.6, Glucose 100, Calcium 9.0, Troponin I < 0.015, Lipase 76 12/21/20 20:45: Troponin I < 0.015 12/21/20 23:42: Troponin I < 0.015 12/22/20 06:12: WBC 4.9, RBC 3.57 L, Hgb 12.7 L, Hct 38.3 L, MCV 107.3 H, MCH 35.6 H, MCHC 33.2, RDW Std Deviation 50.4 H, RDW Coeff of Marilia 12.5, Plt Count 227, MPV 9.2, Immature Gran % (Auto) 0.400, Neut % (Auto) 57.9, Lymph % (Auto) 23.2, [place] % (Auto) 16.1 H, Eos % (Auto) 1.4, Baso % (Auto) 1.0, Absolute Neuts (auto) 2.8, Absolute Lymphs (auto) 1.14, Nucleated RBC % 0 12/22/20 06:12: Sodium 140, Potassium 4.2, Chloride 107, Carbon Dioxide 27.0, Anion Gap 6, BUN 14, Creatinine 0.99, Estim Creat Clear Calc 62.05, Est GFR (MDRD) Af Amer 99, Est GFR (MDRD) Non-Af 82, BUN/Creatinine Ratio 14.1, Glucose 93, Calcium 8.0 L, Triglycerides 96, Cholesterol 152, LDL Cholesterol 87, VLDL Cholesterol 19, HDL Cholesterol 46 Current Medications Acetaminophen (Acetaminophen 325 Mg Tablet) 650 mg PO Q6H PRN PRN PRN Reason: Pain Score 1-10/Temp > 100.7 F Last Admin: 12/21/20 21:09 Dose: 650 mg Documented by: Al Hydroxide/Mg Hydroxide (Mag Hydrox/Al Hydrox/Simeth 30 Ml Udc) 30 ml PO Q6H PRN PRN PRN Reason: Gastric Burning Aspirin (Aspirin 81 Mg Tab.Chew) 81 mg PO DAILY@0800 [facility] Last Admin: 12/22/20 06:02 Dose: 81 mg Documented by: Cholecalciferol (Cholecalciferol (Vit D3) 1,000 Unit (25mcg)) 1,000 unit PO DAILY [facility] Cyanocobalamin (Cyanocobalamin 500 Mcg Tablet) 1,000 mcg PO DAILY [facility] Sodium Chloride () 1,000 mls @ 100 mls/hr IV .Q10H [facility] Last Admin: 12/22/20 06:06 Dose: 100 mls/hr Documented by: Melatonin (Melatonin 3 Mg Tablet) 3 mg PO QHS PRN PRN PRN Reason: INSOMNIA Montelukast Sodium (Montelukast 10 Mg Tablet) 10 mg PO DAILY [facility] Morphine Sulfate (Morphine 2 Mg/Ml Syringe) 1 mg IV Q3H PRN PRN PRN Reason: chest pain Multivitamins/Minerals (Multivitamins,Ther W-Minerals Tablet) 1 tablet PO DAILYCM [facility] Nitroglycerin (Nitroglycerin (Inpatient Use) 0.4 Mg Tab.Subl) 0.4 mg SUBLINGUAL Q5M PRN PRN Reason: CARDIAC/CHEST PAIN Nutritional Formula (Lactose Free) (Ensure Enlive 120 Ml Liquid) 120 ml PO 4X/DAY [facility] Ondansetron HCl (Ondansetron 4 Mg/2 Ml Vial) 4 mg IV Q8H PRN PRN PRN Reason: NAUSEA/VOMITING Pantoprazole Sodium (Pantoprazole Sodium 40 Mg Tablet) 40 mg PO BID [facility] Last Admin: 12/21/20 21:10 Dose: 40 mg Documented by: Rivaroxaban (Rivaroxaban 20 Mg Tablet) 20 mg PO DAILY@1700 [facility] Senna/Docusate Sodium (Senna/Docusate Sodium 1 Tablet) 2 tablet PO BID PRN PRN PRN Reason: Constipation Sodium Chloride (0.9% Saline Lock 10 Ml Syringe) 10 - 40 ml IV UD PRN PRN Reason: SALINE FLUSH Last Admin: 12/22/20 03:07 Dose: 20 ml Documented by: STROKE Vital Signs/Narrative: Vital Signs Temp Pulse Resp BP Pulse Ox 12/22/20 06:54 64 12/22/20 06:01 98.1 F 62 18 106/56 L 99 Medical Necessity - Tobacco Use Smoking Status: Never smoker Assessment/Plan All Active Problems (Last Reviewed 12/21/20 @ 20:[address] Jean Caceres MD) Chest pain (Acute)
[2020-12-22 08:42] VITALS: O2SAT 99
--- NOTE | 2020-12-22 11:15 | STRESSREP ---
Stress Test Report Pharmacologic myocardial perfusion stress test. 60-year-old man with a history of syncope. Stress protocol: Resting EKG demonstrates normal sinus rhythm with a rate of 71 bpm normal intervals are noted resting blood pressure is 130/72 mmHg. 0.4 mg of regadenoson was infused per usual protocol followed by rapid intravenous saline flush injection continuous EKG monitoring was performed. The maximum heart rate attained was 113 bpm which was 70% of max impacted heart rate the maximum workload was 1 metabolic equivalent. At rest there were no ST or T wave changes noted to suggest abnormal flow reserve at peak infusion nonspecific ST-T wave changes were noted with no meet the criteria for ischemia. No clinical angina was noted. Myocardial perfusion protocol. 11.0 mCi of technetium 99m sestamibi was injected at rest. 0.4 mg of regadenoson was infused per usual protocol. At peak infusion 32.9 mCi of technetium 99m sestamibi was injected stress images were obtained stress and rest images were reconstructed and compared in the short axis vertical long horizontal long axis. Gated images were also obtained Perfusion SPECT analysis: Review of the stress images demonstrate normal uptake of tracer noted in all areas of the myocardium the resting images similar demonstrate normal uptake of tracer noted in all areas of the myocardium. No reversibility is noted suggest ischemia no previous infarct is noted. Gated SPECT analysis: The gated ejection fraction is noted to be 82%. Conclusion: Normal pharmacologic myocardial perfusion stress test. Preserved ejection fraction.
--- NOTE | 2020-12-22 11:21 | PCM.DC ---
- Discharge Diagnoses Current Active Problems: Current Active and Chronic Problems (Last Reviewed 12/21/20 @ 20:[address] Jean Caceres MD) Chest pain, suspected non-cardiac (negative stress testing) History of DVT History of asthma History of gastroesophageal reflux You will use the following diet at home:: Regular Your food should be the consistency of: Regular Your liquids should be the consistency of: Regular/Thin Discharge Activity: Return to Normal Activity May resume sexual activity in: No Restrictions Weight Bearing Status: Weight bearing as tolerated Call your doctor if you observe: Fever of 101 or Higher, Inability to urinate, Inability to have a bowel movement, Shortness of breath, Dizziness, Fainting spells, Uncontrolled pain Instructions: ED Chest Pain, Noncardiac, ED Chest Pain, Uncertain Cause Additional Instructions: The chest pain you experienced is likely not from your heart. The stress test is negative and your heart squeezed normally. The environmental monitoring technician you wore showed no problem with the rhythm of your heart. Additionally, the cardiac enzyme series performed remained normal. ECHO was performed and read pending for final discharge planning as in the past (2019) you had noted pericardial fluid around your heart at that time. Sometimes chest pain can come from a problem with the muscles or skeleton and/or associated with straining or doing some strenuous activity you do not normally perform. Chest pain can also be associated with anxiety and with this you frequently have racing heart, trouble sleeping and irritability. It can also come from gastroesophageal reflux disease or heartburn. People who smoke experience increased heartburn because nicotine decreases the pressure in the lower esophageal sphincter and causes reflux. This type of discomfort is well treated with drinking a large glass of cold water which strips the acid out of the esophagus or taking Mylanta, Maalox or Pepto-Bismol. Other foods to avoid if you have reflux are chocolate, peppermint and calcium containing products such as Tums. Allergies/Adverse Reactions: Allergies house dust Allergy (Mild, Verified 12/21/20 21:31) sinus Medications to take at Discharge Montelukast [Singulair] 10 mg PO DAILY 08/07/18 Cholecalciferol (VIT D3) [Vitamin D3] 1,000 unit PO DAILY 06/24/20 Cyanocobalamin (Vitamin B-12) [B-12] 1,000 mcg PO DAILY 06/24/20 Multivitamin with Minerals [Multiple Vitamin] 1 tab PO DAILY 06/24/20 Rivaroxaban [Xarelto] 20 mg PO DAILY 06/24/20 doxycycline hyclate 50 mg tablet 50 mg PO DAILY tab 12/12/20 pantoprazole 40 mg tablet,delayed release 40 tab PO BID 12/12/20 Primary Care Physician: Willard Delgadillo Chi, MD [Primary Care Provider] - Please follow up with your Primary Care Physician in: Follow-up within 3-5 days to review admission. Test Results: Test results from this visit will be discussed in further detail at your follow-up appointment, if applicable. Proposed Discharge Date: 12/22/20
--- NOTE | 2020-12-22 11:31 | DS.PCM_ITS ---
Discharge Date and Diagnosis - Problem List Patient Problems: Active and Suspected Problems (Last Reviewed 12/21/20 @ 20:[address] Jean Caceres MD) Chest pain (Acute) Date of Admission: 12/21/20 Date of Discharge: 12/22/20 - Primary Discharge Diagnosis Acute Problems: Active Problems (Last Reviewed 12/21/20 @ 20:[address] Jean Caceres MD) Chest pain, suspected non-cardiac (negative stress testing) History of DVT History of asthma History of gastroesophageal reflux - Secondary Discharge Diagnosis Chronic Problems: Chronic Problems (Last Reviewed 12/21/20 @ 20:[address] Jean Caceres MD) History of DVT (deep vein thrombosis) (Chronic) History of asthma (Chronic) History of gastroesophageal reflux (GERD) (Chronic) Hospital Course and Treatment Imaging Results: 12/22/20 05:55 Nuclear Stress Test - Chemical [NM] AM (NON MEDS) Operations: None Procedures: 2-D Echocardiogram, EKG, Stress test Summary of Care Provided: The patient is a 60 y/o M w/ PMHx: History of DVT, Asthma, GERD, MRDD, Chronic chest pain who presented to the [facility] ED on 12/21/20 with history of syncope while patient was being given a haircut noted to be unresponsive for a very brief moment initially suspected secondary to overheating as he was covered in many drapes to catch the hair however afterwards patient complained of some mild anterior chest discomfort in the substernal region but he has had chest discomfort for many years however he also had a headache prompting mother to bring him to the ED for evaluation. In the ED work-up included EKG sinus rhythm without evidence of acute ischemia, CXR without acute process, unremarkable CBC and chemistry, cardiac enzyme set x 1 normal. The patient was admitted to the PCU, maintained on cardiac telemetry, serial cardiac enzymes were obtained as well as serial EKGs which remained unremarkable. Patient underwent AM 12/22/2020 stress testing which was noted to be negative for inducible ischemia. Echocardiogram was also obtained as patient has history previously noted for pericardial effusion with noted normal LV size, normal LV systolic function, EF 55% with structurally normal valves with no pericardial effusion present. Given patient findings patient was discharged to home in stable condition with recomm ended follow-up with primary care physician within 3 to 5 days. DAY OF DISCHARGE PROGRESS NOTE: Subjective: Patient without acute event overnight per self and nursing report. Patient did report still a mild headache but this improved following Tylenol. He did discuss having some discomfort but this was primarily with palpation of the anterior chest. Patient denies fever, chills, nausea, emesis, abdominal pain or dyspnea. Patient agreeable to discharge to home. Patient will be discharged with follow-up with primary care physician within 3-5 days. Objective: T 98.1, heart rate 94, BP 104/61, respiratory rate 14, 96% on room air. Physical Examination: General: awake, alert, oriented x 3 and cooperative, MRDD evident facies, seated upright in the PCU bed, NAD. Skin: normal color, turgor, no icterus, cyanosis. HEENT: AT/NC, right eye deficit chronically present, left eye extraocular movements intact, PERRLA, MMM. Lungs: Diminished breath sounds, greater bases, moderate effort, no rales, ronchi or wheezing; Heart: Regular rate and rhythm; no gallop, rub audible, some reproducible discomfort with palpation of the anterior chest. Abdomen: soft, overweight, NTTP, ND, normal BS. Extremities: no cyanosis, clubbing, or edema. Neurological: patient awake, alert, oriented as noted; cognitive function appears intact upon questioning and likely patient's baseline with underlying MRDD, does answer yes frequently to several questions even inappropriately; pupils equally reactive to light and accomodation; cranial nerves II-XII grossly normal, moving all 4 extremities, strength appropriate. Psychiatric: affect appears normal for this patient, no acute evidence of depressive or anxiety feelings. Assessment and Plan: Please see hospital summary above. Patient Problems: Active and Suspected Problems (Last Reviewed 12/21/20 @ 20:[address] Jean Caceres MD) Chest pain (Acute) - Physical Exam Vitals/I&O's: Vital Signs Temp Pulse Resp BP Pulse Ox 98.1 F 64 18 106/56 L 99 12/22/20 06:01 12/22/20 06:54 12/22/20 06:01 12/22/20 06:01 12/22/20 08:42 Oxygen Delivery Method Room Air Weight: 162 lb 7.691 oz Body Mass Index (BMI) 29.7 Orthostatic Vital Signs Start: 12/22/20 03:46 Freq: q24h Status: Active Protocol: Activity Type Activity Date Activity User E-Sign Co-Sign Detail Recorded Client Recorded Date Recorded By Document 12/22/20 02:50 [facility] [id number] 12/22/20 03:47 CHARAN 12/22/20 02:50 Orthostatic Vitals Sitting -Blood Pressure (90/60-120/80 mm Hg) 116/61 -Extremity Use Right Arm -Pulse Rate (60-100 beats/min) 73 Lying -Blood Pressure (90/60-120/80 mm Hg) 107/62 -Extremity Use Right Arm -Pulse Rate (60-100 beats/min) 68 Intake and Output for Last 24 Hours 12/20/20 12/21/20 12/22/20 23:59 23:59 23:59 Intake Total 1000 / 1060 1316.66 / 1316.66 Balance 1000 / 1060 1316.66 / 1316.66 Laboratory Results 12/21/20 17:00: WBC 9.9, RBC 4.12 L, Hgb 14.6, Hct 44.5, MCV 108.0 H, MCH 35.4 H , MCHC 32.8, RDW Std Deviation 50.5 H, RDW Coeff of Marilia 12.6, Plt Count 276, MPV 9.6, Immature Gran % (Auto) 0.500, Neut % (Auto) 67.2, Lymph % (Auto) 17.6 L, Bowie % (Auto) 12.7 H, Eos % (Auto) 0.9, Baso % (Auto) 1.1 H, Absolute Neuts (auto) 6.6, Absolute Lymphs (auto) 1.73, Nucleated RBC % 0 12/21/20 17:00: D-Dimer Quant (PE/DVT) 0.66 H* 12/21/20 17:00: Sodium 137, Potassium 4.1, Chloride 102, Carbon Dioxide 29.0, Anion Gap 6, BUN 20 H, Creatinine 1.28, Estim Creat Clear Calc 52.03, Est GFR (MDRD) Af Amer 74, Est GFR (MDRD) Non-Af 61, BUN/Creatinine Ratio 15.6, Glucose 100, Calcium 9.0, Troponin I < 0.015, Lipase 76 12/21/20 20:45: Troponin I < 0.015 12/21/20 23:42: Troponin I < 0.015 12/22/20 06:12: WBC 4.9, RBC 3.57 L, Hgb 12.7 L, Hct 38.3 L, MCV 107.3 H, MCH 35.6 H, MCHC 33.2, RDW Std Deviation 50.4 H, RDW Coeff of Marilia 12.5, Plt Count 227, MPV 9.2, Immature Gran % (Auto) 0.400, Neut % (Auto) 57.9, Lymph % (Auto) 23.2, Bowie % (Auto) 16.1 H, Eos % (Auto) 1.4, Baso % (Auto) 1.0, Absolute Neuts (auto) 2.8, Absolute Lymphs (auto) 1.14, Nucleated RBC % 0 12/22/20 06:12: Sodium 140, Potassium 4.2, Chloride 107, Carbon Dioxide 27.0, Anion Gap 6, BUN 14, Creatinine 0.99, Estim Creat Clear Calc 62.05, Est GFR (MDRD) Af Amer 99, Est GFR (MDRD) Non-Af 82, BUN/Creatinine Ratio 14.1, Glucose 93, Calcium 8.0 L, Triglycerides 96, Cholesterol 152, LDL Cholesterol 87, VLDL Cholesterol 19, HDL Cholesterol 46 Current Medications Acetaminophen (Acetaminophen 325 Mg Tablet) 650 mg PO Q6H PRN PRN PRN Reason: Pain Score 1-10/Temp > 100.7 F Last Admin: 12/21/20 21:09 Dose: 650 mg Documented by: Al Hydroxide/Mg Hydroxide (Mag Hydrox/Al Hydrox/Simeth 30 Ml Udc) 30 ml PO Q6H PRN PRN PRN Reason: Gastric Burning Aspirin (Aspirin 81 Mg Tab.Chew) 81 mg PO DAILY@0800 [facility] Last Admin: 12/22/20 06:02 Dose: 81 mg Documented by: Cholecalciferol (Cholecalciferol (Vit D3) 1,000 Unit (25mcg)) 1,000 unit PO DAILY [facility] Cyanocobalamin (Cyanocobalamin 500 Mcg Tablet) 1,000 mcg PO DAILY [facility] Sodium Chloride () 1,000 mls @ 100 mls/hr IV .Q10H [facility] Last Infusion: 12/22/20 09:35 Dose: 0 mls/hr Documented by: Melatonin (Melatonin 3 Mg Tablet) 3 mg PO QHS PRN PRN PRN Reason: INSOMNIA Montelukast Sodium (Montelukast 10 Mg Tablet) 10 mg PO DAILY [facility] Morphine Sulfate (Morphine 2 Mg/Ml Syringe) 1 mg IV Q3H PRN PRN PRN Reason: chest pain Multivitamins/Minerals (Multivitamins,Ther W-Minerals Tablet) 1 tablet PO DAILYCM [facility] Nitroglycerin (Nitroglycerin (Inpatient Use) 0.4 Mg Tab.Subl) 0.4 mg SUBLINGUAL Q5M PRN PRN Reason: CARDIAC/CHEST PAIN Nutritional Formula (Lactose Free) (Ensure Enlive 120 Ml Liquid) 120 ml PO 4X/DAY [facility] Ondansetron HCl (Ondansetron 4 Mg/2 Ml Vial) 4 mg IV Q8H PRN PRN PRN Reason: NAUSEA/VOMITING Pantoprazole Sodium (Pantoprazole Sodium 40 Mg Tablet) 40 mg PO BID [facility] Last Admin: 12/21/20 21:10 Dose: 40 mg Documented by: Rivaroxaban (Rivaroxaban 20 Mg Tablet) 20 mg PO DAILY@1700 [facility] Senna/Docusate Sodium (Senna/Docusate Sodium 1 Tablet) 2 tablet PO BID PRN PRN PRN Reason: Constipation Sodium Chloride (0.9% Saline Lock 10 Ml Syringe) 10 - 40 ml IV UD PRN PRN Reason: SALINE FLUSH Last Admin: 12/22/20 03:07 Dose: 20 ml Documented by: Discharge Activity: Return to Normal Activity May resume sexual activity in: No Restrictions Weight Bearing Status: Weight bearing as tolerated Call your doctor if you observe: Fever of 101 or Higher, Inability to urinate, Inability to have a bowel movement, Shortness of breath, Dizziness, Fainting spells, Uncontrolled pain Home Medications: Medications to take at Discharge Montelukast [Singulair] 10 mg PO DAILY 08/07/18 Cholecalciferol (VIT D3) [Vitamin D3] 1,000 unit PO DAILY 06/24/20 Cyanocobalamin (Vitamin B-12) [B-12] 1,000 mcg PO DAILY 06/24/20 Multivitamin with Minerals [Multiple Vitamin] 1 tab PO DAILY 06/24/20 Rivaroxaban [Xarelto] 20 mg PO DAILY 06/24/20 doxycycline hyclate 50 mg tablet 50 mg PO DAILY tab 12/12/20 pantoprazole 40 mg tablet,delayed release 40 tab PO BID 12/12/20 Primary Care Physician: Willard Delgadillo Chi, MD [Primary Care Provider] - Please follow up with your Primary Care Physician in: Follow-up within 3-5 days to review admission. Patient Instructions: ED Chest Pain, Noncardiac, ED Chest Pain, Uncertain Cause Disposition: Home Minutes spent on discharge:: 35 Patient Condition:: Fair Medical Necessity - Tobacco Use Smoking Status: Never smoker Meaningful Use Info Meaningful Use Diagnoses (Choose all that apply): None applicable OBSV E&M: 90762 Observation care discharge
--- NOTE | 2020-12-22 11:38 | PHA.DC.MR ---
Pharmacy Service has performed discharge medication reconciliation for this patient. No new medications at time of discharge. Medications reviewed are from previously reported home medications. Home Medications Montelukast [Singulair] 10 mg PO DAILY 08/07/18 Cholecalciferol (VIT D3) [Vitamin D3] 1,000 unit PO DAILY 06/24/20 Cyanocobalamin (Vitamin B-12) [B-12] 1,000 mcg PO DAILY 06/24/20 Multivitamin with Minerals [Multiple Vitamin] 1 tab PO DAILY 06/24/20 Rivaroxaban [Xarelto] 20 mg PO DAILY 06/24/20 doxycycline hyclate 50 mg tablet 50 mg PO DAILY tab 12/12/20 pantoprazole 40 mg tablet,delayed release 40 tab PO BID 12/12/20 The patient's discharge medication list was reviewed for discrepancies and discrepancies were resolved.
[2020-12-22] MEDS: Cyanocobalamin 500 MCG Tablet 1000 MCG PO (12:01)
[2020-12-22] MEDS: Montelukast 10 MG Tablet PO (12:01)
[2020-12-22] MEDS: Pantoprazole Sodium 40 MG Tablet PO (12:01)
[2020-12-22] MEDS: Multivitamins,Ther W-Minerals Tablet 1 TABLET PO (12:01)
[2020-12-22 12:53] VITALS: BP 104/61; PULSE 94; RESP 14; TEMP 36.7; O2SAT 96
== END 2020-12-22 11:30 | disposition home or self-care (01) ==
LOC: ED 18:26 → PCU 20:27
PROVIDERS: Admitting Provider Hospitalist; Emergency Provider Emergency Medicine; PCP Family Medicine Geriatric Medicine; Visit Provider Family Medicine
DX: R07.89 Other chest pain (principal); Q90.9 Down syndrome, unspecified; R55 Syncope and collapse; K21.9 Gastro-esophageal reflux disease without esophagitis; E55.9 Vitamin D deficiency, unspecified; J45.909 Unspecified asthma, uncomplicated; Z79.899 Other long term (current) drug therapy; Z79.01 Long term (current) use of anticoagulants; Z86.718 Personal history of other venous thrombosis and embolism
CPT/HCPCS: 36415; 70496; 70498; 71275; 78452; 80048; 80061; 83690; 84484; 85025; 85379; 93005; 93017; 93306; 96360; 96361; 99218; 99285; A9500; J7030; Q9957; Q9967; A4216; G0378; J2785

== ENCOUNTER → 2020-12-23 12:26 | Outpatient (CLI) | payer MEDICARE, MEDICAID, SELFPAY ==
[2020-12-12 14:14] VITALS: BMI 31.5
[2020-12-21 20:40] VITALS: BMI 29.7
--- NOTE | 2020-12-23 12:29 | MRI_ITS ---
HISTORY: H/A, posterior neck painPt has Trisomy 21 TECHNIQUE: Routine brain MR protocol was performed without gadolinium. COMPARISON: None FINDINGS: # of images incl. paperwork: 284 Mild brain atrophy. Mild hydrocephalus. Compressed pituitary gland within the inferior aspect of the sella turcica possibly related to CSF pulsation's. No acute ischemia. Evidence to suggest possible old focal tiny hemorrhage within the right occipital and left occipital lobes. I appreciate no masses, herniations, nor deviations. Periventricular deep and subcortical white matter disease is mild. Flow is present within major central intracranial arteries. There is a disc protrusion at the C2-C3 level with cord impingement. 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 Brain atrophy. Evidence to suggest possible old hemorrhage within the occipital lobes. at 0359 Reported and signed by: Milton Bean MD Electronically Signed: Milton Bean MD at 3:58 EST Tel , Service support ,
--- NOTE | 2020-12-23 12:29 | MRI_ITS ---
HISTORY: H/A, posterior neck painPt has Trisomy 21 TECHNIQUE: Routine MRI of the CERVICAL spine was performed without IV Gadolinium. COMPARISON: X-rays of the cervical spine from December 12, 2020. Additional x-rays of the cervical spine are from May 09, 2013. FINDINGS: # of images incl. paperwork: 265 Degenerative disc disease and degenerative malalignment remains. C2 is posteriorly subluxed on C3 by 3 mm. This is similar to the previous x-ray. C3 is posteriorly subluxed on C4 by 3 mm as well. This is also present on the previous x-ray. C6 is anteriorly subluxed on C7 by 3 mm. This is also chronic. At every level there is loss of disc height and disc desiccation. In the odontoid process there is some marrow edema. There may be minimal marrow edema also within the anterior arch of C1. The left lateral mass of C1 also contains some edema and perhaps even some subcortical cystic degenerative change. Edema extends from the odontoid process into the left C2 pedicle and left C2 left lamina and inferior facet. There appears to be some minimal loss of height to the left lateral mass of C1 compared to the right. Fluid is present within the left lateral mass of C1 occipital condyle articulation that is not present on the right. There is trace edema within the spinous process of C2. The posterior arch of C1 is incompletely fused. The left and right lamina of C1 may not be completely fused with the pars interarticularis, and the lateral masses.. Facets are adequately aligned. Facet arthropathy is also present. At the C1 level thickened odontoid and C1 ligaments extend posteriorly into the spinal canal displacing CSF from a abutting and deforming the cord without impingement. At the C2-C3 level CII is posteriorly subluxed on T3. Malalignment, and bone and disc complex at the C2-C3 level cause cord impingement without cord edema. At the C3-C4 level malalignment, and bone and disc complex extending posteriorly from the C3-C4 interspace but displaced before the cord causing cord impingement without cord edema. Bone disc complex at C4-C5 is mild abutting the cord. C5-C6 is near normal. At the C6-C7 level bone and disc material extending posteriorly into the spinal canal abutting and displacing the deforming the cord without cord impingement. Minimal disc bulge at the C6-C7 level. MRI/Spine Cervical (Routine) IMPRESSION: Cord impingement due to bone disc complex extending posteriorly from the C2-C3 level as well as degenerative malalignment at C2-C3. This appears to be chronic with thinning of the cord but without acute cord edema. Cord impingement at the C3-C4 level. This is also due to degenerative malalignment and bone and disc material extending posteriorly into the spinal canal abutting displacing the deforming and impinging the cord. Additional malalignment with disc protrusion at the C6-C7 level abuts and displaces the cord, but without cord impingement. There are some changes at C1 but I believe are likely developmental. There is failure of fusion of the posterior arch of C1. There likely is also failure of fusion of the posterior ligament of C1 to the pars interarticularis and lateral masses. The left lateral mass of C1 demonstrates loss of height. Additionally there is edema that extends within the anterior arch of C1 into the left lateral mass and into the soft tissues between the left lateral mass in the region of the pedicle and the lamina. Additional trace edema within the odontoid process. This is likely due to degenerative changes from the absence of solid ossification at this level. at 0612 Reported and signed by: Milton Bean MD Electronically Signed: Milton Bean MD at 6:10 EST Tel , Service support ,
== END ==
PROVIDERS: PCP Family Medicine Geriatric Medicine; Referring Provider Orthopaedic Surgery; Visit Provider Orthopaedic Surgery
DX: Q90.9 Down syndrome, unspecified (principal); R51.9 Headache, unspecified
CPT/HCPCS: 70551; 72141

== ENCOUNTER → 2021-02-11 14:02 | Outpatient (CLI) | payer MEDICARE, MEDICAID, SELFPAY ==
[2021-02-11 16:43] LABS: Absolute Neutrophil Count 2.8 X10^3/uL (2.0-7.7); Basophil# 0.07 X10^3/uL; Basophil% 1.4 % (0-1); Eosinophil# 0.08 X10^3/uL; Eosinophils% 1.6 % (0-5); Hematocrit 42.4 % (40-54); Hemoglobin 13.8 g/dL (13.0-16.5); Lymphocyte % 27.7 % (19-41); Mean Corp Hgb Conc 32.5 g/dL (32-36); Mean Corpuscular Hgb 35.4 pg (27.0-32.0); Mean Corpuscular Volume 108.7 fL (80-94); Monocyte# 0.67 X10^3/uL; Monocyte% 13.2 % (0-10); NRBC Flagged by Analyzer 0 % (0-5); Neutrophil # 2.82 X10^3/uL (2.7-7.7); Neutrophil % 55.7 % (47-70); Platelet Count 231 K/mm3 (150-450); RBC Distribution Width CV 13.3 % (11.6-14.6); RBC Distribution Width SD 54.4 fl (35.1-43.9); White Blood Count 5.1 K/mm3 (4.4-11.0)
[2021-02-11 17:25] LABS: AST(SGOT) 35 U/L (15-37); Alanine Aminotransfer ALT/SGPT 55 U/L (16-61); Albumin, Serum 3.3 g/dL (3.2-5.0); Alkaline Phosphatase 110 U/L (45-117); Anion Gap 8 (5-15); BUN 15 mg/dL (7-18); BUN/Creat Ratio 12.5 RATIO (10-20); Calcium,Total 8.6 mg/dL (8.5-10.1); Chloride 102 mmol/L (98-107); EST Glomerular Filtration Rate 66 mL/min (>60); Est Glom Filt Rate - Afr Amer 80 mL/min (>60); Globulin 3.3 g/dL (2.2-4.2); Glucose 85 mg/dL (74-106); Potassium 4.5 mmol/L (3.5-5.1); Protein, Total 6.6 g/dL (6.4-8.2); Sodium Level 140 mmol/L (136-145)
== END ==
PROVIDERS: PCP Family Medicine Geriatric Medicine; Visit Provider Family Medicine Geriatric Medicine
DX: R53.83 Other fatigue (principal)
CPT/HCPCS: 36415; 80053; 84443; 85025

== ENCOUNTER → 2021-05-12 11:58 | Outpatient (CLI) | payer MEDICARE, MEDICAID, SELFPAY ==
[2021-04-21 13:26] VITALS: BMI 31.5
[2021-05-12 17:05] LABS: Absolute Lymphocyte Count 1.27 X10^3/uL (0.83-4.51); Basophil# 0.04 X10^3/uL; Basophil% 0.8 % (0-1); Eosinophil# 0.03 X10^3/uL; Eosinophils% 0.6 % (0-5); Hematocrit 40.8 % (40-54); Hemoglobin 13.5 g/dL (13.0-16.5); Lymphocyte # 1.27 X10^3/ul (0.83-4.51); Lymphocyte % 26.1 % (19-41); Mean Corp Hgb Conc 33.1 g/dL (32-36); Mean Corpuscular Hgb 35.2 pg (27.0-32.0); Mean Corpuscular Volume 106.5 fL (80-94); Mean Platelet Vol. 10.2 fl (6.2-12.0); Monocyte# 0.52 X10^3/uL; Monocyte% 10.7 % (0-10); NRBC Flagged by Analyzer 0 % (0-5); Neutrophil # 2.98 X10^3/uL (2.7-7.7); Neutrophil % 61.4 % (47-70); Platelet Count 207 K/mm3 (150-450); RBC Distribution Width CV 13.7 % (11.6-14.6); RBC Distribution Width SD 53.6 fl (35.1-43.9); Red Blood Count 3.83 M/mm3 (4.6-6.2); White Blood Count 4.9 K/mm3 (4.4-11.0)
[2021-05-12 17:29] LABS: AST(SGOT) 26 U/L (15-37); Alanine Aminotransfer ALT/SGPT 31 U/L (16-61); Albumin, Serum 3.2 g/dL (3.2-5.0); Alkaline Phosphatase 114 U/L (45-117); Anion Gap 7 (5-15); BUN 18 mg/dL (7-18); BUN/Creat Ratio 11.6 RATIO (10-20); Calcium,Total 8.1 mg/dL (8.5-10.1); Chloride 108 mmol/L (98-107); Creatinine, Serum 1.55 mg/dL (0.70-1.30); EST Glomerular Filtration Rate 49 mL/min (>60); Est Glom Filt Rate - Afr Amer 59 mL/min (>60); Globulin 3.2 g/dL (2.2-4.2); Glucose 86 mg/dL (74-106); Potassium 4.3 mmol/L (3.5-5.1); Protein, Total 6.4 g/dL (6.4-8.2); Sodium Level 140 mmol/L (136-145); Thyroid Stim Hormone (TSH) 2.99 uIU/mL (0.358-3.74)
== END ==
PROVIDERS: PCP Family Medicine Geriatric Medicine; Visit Provider Family Medicine Geriatric Medicine
DX: R53.83 Other fatigue (principal)
CPT/HCPCS: 36415; 80053; 84443; 85025

== ENCOUNTER → 2021-09-02 11:47 | Outpatient (CLI) | payer MEDICARE, MEDICAID, SELFPAY ==
[2021-09-02 12:33] LABS: Absolute Lymphocyte Count 1.36 X10^3/uL (0.83-4.51); Absolute Neutrophil Count 2.4 X10^3/uL (2.0-7.7); Basophil# 0.06 X10^3/uL; Basophil% 1.4 % (0-1); Eosinophil# 0.04 X10^3/uL; Eosinophils% 0.9 % (0-5); Hematocrit 40.7 % (40-54); Hemoglobin 13.6 g/dL (13.0-16.5); Lymphocyte # 1.36 X10^3/ul (0.83-4.51); Lymphocyte % 31.7 % (19-41); Mean Corp Hgb Conc 33.4 g/dL (32-36); Mean Corpuscular Hgb 36.3 pg (27.0-32.0); Mean Corpuscular Volume 108.5 fL (80-94); Mean Platelet Vol. 10.5 fl (6.2-12.0); Monocyte# 0.43 X10^3/uL; NRBC Flagged by Analyzer 0 % (0-5); Neutrophil # 2.39 X10^3/uL (2.7-7.7); Neutrophil % 55.8 % (47-70); Platelet Count 191 K/mm3 (150-450); RBC Distribution Width SD 52.4 fl (35.1-43.9); Red Blood Count 3.75 M/mm3 (4.6-6.2); White Blood Count 4.3 K/mm3 (4.4-11.0)
[2021-09-02 13:04] LABS: ALB/GLOB Ratio 0.8 RATIO (0.9-2.4); AST(SGOT) 32 U/L (15-37); Alanine Aminotransfer ALT/SGPT 30 U/L (16-61); Alkaline Phosphatase 98 U/L (45-117); Anion Gap 6 (5-15); BUN 17 mg/dL (7-18); BUN/Creat Ratio 12.7 RATIO (10-20); Calcium,Total 8.4 mg/dL (8.5-10.1); Chloride 108 mmol/L (98-107); Creatinine, Serum 1.34 mg/dL (0.70-1.30); EST Glomerular Filtration Rate 58 mL/min (>60); Est Glom Filt Rate - Afr Amer 70 mL/min (>60); Globulin 3.6 g/dL (2.2-4.2); Glucose 104 mg/dL (74-106); PSA,Total - Annual Screen 0.24 ng/mL (0.00-4.00); Potassium 4.4 mmol/L (3.5-5.1); Protein, Total 6.6 g/dL (6.4-8.2); Sodium Level 138 mmol/L (136-145); Thyroid Stim Hormone (TSH) 2.39 uIU/mL (0.358-3.74)
== END ==
PROVIDERS: PCP Family Medicine Geriatric Medicine; Visit Provider Family Medicine Geriatric Medicine
DX: R53.83 Other fatigue (principal); Z12.5 Encounter for screening for malignant neoplasm of prostate
CPT/HCPCS: 36415; 80053; 84153; 84443; 85025; G0103

== ENCOUNTER 2021-12-15 13:24 | Outpatient (CLI) | payer MEDICARE, MEDICAID, SELFPAY ==
[2021-12-15 15:50] LABS: Absolute Lymphocyte Count 1.15 X10^3/uL (0.83-4.51); Basophil# 0.07 X10^3/uL; Basophil% 1.2 % (0-1); Eosinophil# 0.07 X10^3/uL; Eosinophils% 1.2 % (0-5); Hematocrit 40.8 % (40-54); Hemoglobin 13.9 g/dL (13.0-16.5); Lymphocyte # 1.15 X10^3/ul (0.83-4.51); Lymphocyte % 19.1 % (19-41); Mean Corp Hgb Conc 34.1 g/dL (32-36); Mean Corpuscular Hgb 35.5 pg (27.0-32.0); Mean Corpuscular Volume 104.3 fL (80-94); Mean Platelet Vol. 9.8 fl (6.2-12.0); Monocyte% 11.6 % (0-10); NRBC Flagged by Analyzer 0 % (0-5); Neutrophil # 4.01 X10^3/uL (2.7-7.7); Neutrophil % 66.6 % (47-70); Platelet Count 247 K/mm3 (150-450); RBC Distribution Width CV 13.2 % (11.6-14.6); RBC Distribution Width SD 50.7 fl (35.1-43.9); Red Blood Count 3.91 M/mm3 (4.6-6.2)
[2021-12-15 15:52] LABS: ALB/GLOB Ratio 0.8 RATIO (0.9-2.4); AST(SGOT) 24 U/L (15-37); Alanine Aminotransfer ALT/SGPT 28 U/L (16-61); Albumin, Serum 3.1 g/dL (3.2-5.0); Alkaline Phosphatase 110 U/L (45-117); Anion Gap 6 (5-15); BUN 10 mg/dL (7-18); BUN/Creat Ratio 9.8 RATIO (10-20); Calcium,Total 8.3 mg/dL (8.5-10.1); Chloride 106 mmol/L (98-107); Creatinine, Serum 1.02 mg/dL (0.70-1.30); EST Glomerular Filtration Rate 79 mL/min (>60); Est Glom Filt Rate - Afr Amer 96 mL/min (>60); Globulin 3.8 g/dL (2.2-4.2); Glucose 117 mg/dL (74-106); Potassium 3.8 mmol/L (3.5-5.1); Protein, Total 6.9 g/dL (6.4-8.2); Sodium Level 137 mmol/L (136-145); Thyroid Stim Hormone (TSH) 4.53 uIU/mL (0.358-3.74)
== END 2021-12-15 23:59 | disposition short-term general hospital (02) ==
LOC: POLAB3 13:25
PROVIDERS: PCP Family Medicine Geriatric Medicine; Visit Provider Family Medicine Geriatric Medicine
DX: R53.83 Other fatigue (principal)
CPT/HCPCS: 36415; 80053; 84443; 85025

== ENCOUNTER 2022-01-07 10:01 | Observation (INO) | payer MEDICARE, MEDICAID, SELFPAY ==
[2022-01-07 10:02] VITALS: BP 97/64; PULSE 83; RESP 18; TEMP 36.6; O2SAT 100; BMI 29.5
--- NOTE | 2022-01-07 10:13 | EDS_ITS ---
HPI History of Present Illness Chief Complaint: Lower Extremity Injury Informant: patient and parent Onset/Context/Timing Onset: Days (The gotten worse over the past several days) and Month(s) (Deterioration for more than 1 to 2 months per mother) Context: Gradual Onset Timing: Continuous Quality: Inability to ambulate, care for self and knee pain Location: Per HPI Current Severity: Mild Maximum Severity: Severe Worsened by: Movement, palpation and weightbearing Relieved by: Uncertain Associated Symptoms Associated Symptoms: None per mother Narrative Narrative: Patient is a 61-year-old male who is cognitively impaired due to Down syndrome who was brought to the emergency department by his mother because she is no longer able to care for him. He has been complaining of left knee pain for 1 week. There is no known history of trauma. There is no history of gout or pseudogout. Mother states she cannot transfer him. He is not walked in several months. She is unable to care for him and asked if he could be placed since he is total care at this time. 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 History of blood clots Pericardial effusion Plantar fasciitis of left foot Home Medications montelukast 10 mg PO DAILY 08/07/18 [History Last Taken 06/24/20] cholecalciferol (vitamin D3) 1,000 unit PO DAILY 06/24/20 [History Last Taken 06/24/20] cyanocobalamin (vitamin B-12) 1,000 mcg PO DAILY 06/24/20 [History Last Taken 06/24/20] multivitamin with minerals 1 tab PO DAILY 06/24/20 [History Last Taken 06/24/20] rivaroxaban 20 mg PO DAILY 06/24/20 [History Last Taken 06/23/20] doxycycline hyclate 50 mg tablet 50 mg PO DAILY tab 12/12/20 [History Last Taken Unknown] pantoprazole 40 mg tablet,delayed release 40 tab PO BID 12/12/20 [History Last Taken Unknown] triamcinolone acetonide 55 mcg nasal spray aerosol 1 spray INTRANASAL DAILY 03/04/21 [History Last Taken Unknown] ipratropium bromide 42 mcg (0.06 %) nasal spray 2 spray INTRANASAL QD-BID PRN ml 03/05/21 [History Last Taken Unknown] ondansetron HCl 4 mg tablet 4 mg PO Q8H PRN #90 tab 07/16/21 [Rx Last Taken Unknown] diclofenac sodium 1 % topical gel 4 g TOPICAL BID PRN #100 gm 08/20/21 [Rx Last Taken Unknown] loratadine 10 mg tablet 10 mg PO QAM #30 tablet 08/20/21 [Rx Last Taken Unknown] rizatriptan 10 mg tablet See Rx Instructions PO .COMPLEX #9 tab 08/20/21 [Rx Last Taken Unknown] Lightweight Wheelchair #1 ea 10/14/21 [Rx Last Taken Unknown] Allergy/AdvReac Type Severity Reaction Status Date / Time house dust Allergy Mild sinus Verified 01/07/22 10:05 Family History Mother Arthritis Hypertension Father Diabetes Heart disease Hypertension Kidney disease History of blood clots High cholesterol Respiratory disease Grandmother Heart disease Diabetes Sister Hypertension Surgical History H/O eye surgery History of cataract surgery History of cholecystectomy Social History household members: other details: mother housing: house Smoking Status: Never smoker alcohol intake: never what type of physical activity do you participate in: none seatbelt use: always do you feel safe at home: Yes ROS ROS ED Review of Systems ROS Unobtainable: due to mental status and other Details: Mother is the primary informant. Constitutional Constitutional ED: Denies fever(s) ENT ENT ED: Denies ear pain or rhinorrhea Cardiovascular Cardiovascular: Denies chest pain Respiratory/Chest Respiratory/Chest: Denies cough or dyspnea Gastrointestinal Gastrointestinal: Denies diarrhea or vomiting Musculoskeletal Musculoskeletal: Reports other Details: Left knee pain ; Denies arthralgias, back pain, myalgias or neck pain Integumentary Denies rash Neurologic Neurologic: Reports weakness EXAM Physical Exam Const Vital Signs: 01/07/22 10:02 Temperature 97.9 F Temperature Source Temporal Pulse Rate 83 Respiratory Rate 18 Blood Pressure 97/64 Blood Pressure Mean 75 Pulse Ox 100 Oxygen Delivery Method Room Air Positive well nourished, well developed and obese; Negative for cachectic, contractures or unkempt General Appearance ED: well developed and NAD; Negative for unkempt, cachectic, contractures, cyanotic or diaphoretic Nutritional Appearance: obese; Negative for cachectic HEENT HEENT Narrative: Patient has hearing aids. Nares patent. Ears are normal. TMs are normal. Mucosa is moist. Negative for trauma or tenderness Eyes PERRL and EOMs intact bilaterally General Eye ED: Negative for pale conjunctiva or scleral icterus Neck no lymphadenopathy, supple and no JVD Chest Wall inspection of chest normal and palpation of chest normal Resp normal respiratory effort and clear to auscultation bilaterally Cardio regular rate, regular rhythm, S1 normal heart sound, S2 normal heart sound and no murmurs GI normal to inspection, nondistended, normoactive bowel sounds and non-tender Palpation: soft Extremity Extremity Narrative: Dependent pedal edema and lower extremity exam a. There is pain no patient joint line lateral greater than medial. The left knee is slightly swollen compared to the right. Patella is not ballotable. There is no obvious effusion. There is no laxity with varus valgus stress testing. Unable to perform modified Boubacar's test. Neuro oriented x3 and CN's II-XII intact bilaterally Neuro Narrative: Patient is developing contractures upper and lower extremities over the past several months per mother. Sensorium / Orientation: alert Psych Negative for mental status grossly normal Appearance: Negative for unkempt Skin no rashes or lesions noted Skin Narrative: Dry skin MDM MDM MDM Narrative Medical decision making narrative: Consult placed to case management since mother is unable to care for him. X-ray was obtained to delineate there was any significant trauma and baseline blood work since his p.o. intake has decreased. Per case management patient will need to be admitted since he will need long- term care. In light of this information, the hospitalist was paged. Lab Data Attestation: I reviewed the patient's lab results. Lab results narrative: CBC is remarkable for an MCV of 105 otherwise unremar kable. Basic metabolic panel is unremarkable. The glucose is slightly elevated at 119. Labs: Laboratory Results - last 24 hr 01/07/22 01/07/22 10:35 10:35 WBC 6.5 RBC 3.75 L Hgb 13.3 Hct 39.4 L MCV 105.1 H MCH 35.5 H MCHC 33.8 RDW Std Deviation 51.6 H RDW Coeff of Marilia 13.2 Plt Count 293 MPV 9.2 Immature Gran % (Auto) 0.500 Neut % (Auto) 64.2 Lymph % (Auto) 21.9 Bent % (Auto) 10.8 H Eos % (Auto) 1.4 Baso % (Auto) 1.2 H Absolute Neuts (auto) 4.2 Absolute Lymphs (auto) 1.42 Nucleated RBC % 0 Sodium 138 Potassium 4.3 Chloride 108 H Carbon Dioxide 26.0 Anion Gap 4 L BUN 14 Creatinine 1.04 Estim Creat Clear Calc 75.53 Est GFR (MDRD) Af Amer 94 Est GFR (MDRD) Non-Af 77 BUN/Creatinine Ratio 13.5 Glucose 119 H Calcium 8.6 Total Bilirubin 0.60 AST 35 ALT 25 Alkaline Phosphatase 102 Total Protein 6.6 Albumin 2.6 L Globulin 4.0 Albumin/Globulin Ratio 0.6 L Radiography Chest X-Ray - ED: Read by ED Physician (4 view x-ray of the left knee was interpreted by me at 1130 as unremarkable any acute pathology. There is slight asymmetry. There is no fracture, subluxation or dislocation. There is no ef fusion.) Discharge Plan Dx/Rx/DC Orders Clinical Impression: Inability to ambulate due to left knee, Down syndrome, Adult failure to thrive Disposition Disposition: [facility]
[2022-01-07 10:44] LABS: Absolute Lymphocyte Count 1.42 X10^3/uL (0.83-4.51); Absolute Neutrophil Count 4.2 X10^3/uL (2.0-7.7); Basophil# 0.08 X10^3/uL; Basophil% 1.2 % (0-1); Eosinophil# 0.09 X10^3/uL; Eosinophils% 1.4 % (0-5); Hematocrit 39.4 % (40-54); Hemoglobin 13.3 g/dL (13.0-16.5); Lymphocyte # 1.42 X10^3/ul (0.83-4.51); Lymphocyte % 21.9 % (19-41); Mean Corp Hgb Conc 33.8 g/dL (32-36); Mean Corpuscular Hgb 35.5 pg (27.0-32.0); Mean Corpuscular Volume 105.1 fL (80-94); Mean Platelet Vol. 9.2 fl (6.2-12.0); Monocyte% 10.8 % (0-10); NRBC Flagged by Analyzer 0 % (0-5); Neutrophil # 4.17 X10^3/uL (2.7-7.7); Neutrophil % 64.2 % (47-70); Platelet Count 293 K/mm3 (150-450); RBC Distribution Width CV 13.2 % (11.6-14.6); RBC Distribution Width SD 51.6 fl (35.1-43.9); Red Blood Count 3.75 M/mm3 (4.6-6.2); White Blood Count 6.5 K/mm3 (4.4-11.0)
[2022-01-07 11:03] LABS: ALB/GLOB Ratio 0.6 RATIO (0.9-2.4); AST(SGOT) 35 U/L (15-37); Alanine Aminotransfer ALT/SGPT 25 U/L (16-61); Albumin, Serum 2.6 g/dL (3.2-5.0); Alkaline Phosphatase 102 U/L (45-117); Anion Gap 4 (5-15); BUN 14 mg/dL (7-18); BUN/Creat Ratio 13.5 RATIO (10-20); Calcium,Total 8.6 mg/dL (8.5-10.1); Chloride 108 mmol/L (98-107); Creatinine, Serum 1.04 mg/dL (0.70-1.30); EST Glomerular Filtration Rate 77 mL/min (>60); Est Glom Filt Rate - Afr Amer 94 mL/min (>60); Estimated Creatinine Clearance 75.53 ml/min; Glucose 119 mg/dL (74-106); Potassium 4.3 mmol/L (3.5-5.1); Protein, Total 6.6 g/dL (6.4-8.2); Sodium Level 138 mmol/L (136-145)
--- NOTE | 2022-01-07 11:05 | RAD_ITS ---
STUDY: X-RAY - LEFT KNEE REASON FOR EXAM: Male, 61 years old. Injury/Pain TECHNIQUE: 4 view(s) of the knee. COMPARISON: None. FINDINGS: Normal visualized distal femur. Normal visualized proximal tibia and fibula. Normal proximal tibiofibular articulation. Normal medial femorotibial compartment. Normal lateral femorotibial compartment. Normal patellofemoral articulation. Joint effusion. Soft tissue swelling. RAD/Knee 4 or More Views IMPRESSION: Joint effusion and soft tissue swelling. Electronically Signed: Maynor Pantoja MD at 11:54 EST ,
--- NOTE | 2022-01-07 11:51 | HP.PCM.HOS_ITS ---
HPI - General General Date of Admission: 01/07/22 HPI Narrative ISIDRO DAVENPORT, is a 61 M with a PMH as outlined including Down's syndrome and cognitive impairment who presents via the ED with a complaint of weakness. Mother is not able to care for him. Mother said he had been complaining of left knee pain for ~ 1 week prior to admission. Mother is unable to care for him. He has no walking several months and mother is requesting placement. Vitals in the ED were blood pressure of 97/64, pulse rate of 83 respiratory rate of 18 with temperature of 97.9 Fahrenheit. He was saturating at 100% on room air. CBC and BMP were unremarkable. X-ray of the left knee done on account of patient complaining of left knee pain showed joint effusion and soft tissue swelling. He has been admitted to be managed for debility and left knee pain and swelling. Will need placement. 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 History of blood clots Pericardial effusion Plantar fasciitis of left foot Home Medications multivitamin with minerals 1 tab PO DAILY 06/24/20 [History Last Taken 01/07/22] rivaroxaban 20 mg PO DAILY 06/24/20 [History Last Taken 01/07/22] pantoprazole 40 mg tablet,delayed release 40 tab PO BID 12/12/20 [History Last Taken 01/07/22] rizatriptan 10 mg tablet See Rx Instructions PO .COMPLEX #9 tab 08/20/21 [Rx Last Taken Unknown] Lightweight Wheelchair #1 ea 10/14/21 [Rx Last Taken Unknown] levothyroxine 25 mcg PO DAILY 01/07/22 [History Last Taken 01/07/22] topiramate 25 mg PO BID 01/07/22 [History Last Taken 01/07/22] Allergy/AdvReac Type Severity Reaction Status Date / Time house dust Allergy Mild sinus Verified 01/07/22 10:05 Family History Mother Arthritis Hypertension Father Diabetes Heart disease Hypertension Kidney disease History of blood clots High cholesterol Respiratory disease Grandmother Heart disease Diabetes Sister Hypertension Surgical History H/O eye surgery History of cataract surgery History of cholecystectomy Social History household members: other details: mother housing: house Smoking Status: Never smoker alcohol intake: never what type of physical activity do you participate in: none seatbelt use: always do you feel safe at home: Yes ROS Constitutional Constitutional: Reports weakness; Denies anorexia, change in weight or chills Eyes Eyes: Denies change in vision ENT HEENT: Denies dysphagia Cardiovascular Cardiovascular: Denies chest pain, dyspnea on exertion, edema, lightheadedness, orthopnea or palpitations Respiratory/Chest Respiratory/Chest: Denies cough, dyspnea, shortness of breath at rest or shortness of breath with exertion Gastrointestinal Gastrointestinal: Denies abdominal pain, constipation, diarrhea, dyspepsia, nausea or vomiting Genitourinary Genitourinary: Denies burning urination Musculoskeletal Musculoskeletal: Denies back pain, joint stiffness or joint swelling Neurologic Neurologic: Denies confusion, dizziness or focal weakness Psychiatric Psychiatric: Denies anxiety or depression Vital Signs Vital Signs Vital Signs: 01/07/22 10:02 Temperature 97.9 F Temperature Source Temporal Pulse Rate 83 Respiratory Rate 18 Blood Pressure 97/64 Blood Pressure Mean 75 Pulse Ox 100 Oxygen Delivery Method Room Air Weight Weight: 200 lb Body Mass Index (BMI) 29.5 Physical Exam Const alert General Appearance: cooperative HEENT normocephalic and head/scalp atraumatic HEENT Narrative: dry mucous membranes Eyes PERRL Neck no lymphadenopathy and supple Resp normal respiratory effort, no retractions, no use of accessory muscles and clear to auscultation bilaterally Cardio regular rate, regular rhythm, S1 normal heart sound and S2 normal heart sound GI normal to inspection, nondistended, normoactive bowel sounds, soft to palpation, non-tender and non-distended Extremity full ROM and no clubbing, cyanosis or edema Extremity Narrative: has mild swelling of the left knee, no erythema or differential warmth Peripheral Pulses: Yes pulses 2+ throughout Skin no rashes or lesions noted Neuro CN's II-XII intact bilaterally and moves all extremities Sensorium / Orientation: awake and alert Psych affect normal Results Lab / Micro Data Result Diagrams: 01/07/22 10:35 01/07/22 10:35 Labs: Laboratory Results - last 24 hr 01/07/22 10:35: WBC 6.5, RBC 3.75 L, Hgb 13.3, Hct 39.4 L, MCV 105.1 H, MCH 35.5 H, MCHC 33.8, RDW Std Deviation 51.6 H, RDW Coeff of Marilia 13.2, Plt Count 293, MPV 9.2, Immature Gran % (Auto) 0.500, Neut % (Auto) 64.2, Lymph % (Auto) 21.9, [place] % (Auto) 10.8 H, Eos % (Auto) 1.4, Baso % (Auto) 1.2 H, Absolute Neuts (auto) 4.2, Absolute Lymphs (auto) 1.42, Nucleated RBC % 0 01/07/22 10:35: Sodium 138, Potassium 4.3, Chloride 108 H, Carbon Dioxide 26.0, Anion Gap 4 L, BUN 14, Creatinine 1.04, Estim Creat Clear Calc 75.53, Est GFR (MDRD) Af Amer 94, Est GFR (MDRD) Non-Af 77, BUN/Creatinine Ratio 13.5, Glucose 119 H, Calcium 8.6, Total Bilirubin 0.60, AST 35, ALT 25, Alkaline Phosphatase 102, Total Protein 6.6, Albumin 2.6 L, Globulin 4.0, Albumin/Globulin Ratio 0.6 L Assessment & Plan Assessment/Plan (1) Arthritis of left ankle: (2) Adult failure to thrive: PLAN: #Weakness and debility with failure to thrive * Mother says he has been getting weaker at home and she is unable to care for him anymore. * Consult PT OT. Fall precautions. * For placement as mother unable to care for him * * #Left knee pain * has been complaining of left knee pain. * xray of left knee showed joint effusion and soft tissue swelling * has minimal tenderness of left knee with palpation * PT.OT on board. Fall precautions * #Arthritis of left ankle * Mother states he was recently given a brace for his left lower extremity about 1 day ago. * PT OT consulted. Fall precautions. * #GERD: On PPI #History of asthma: Breathing treatments bronchodilators. #Hypothyroidism: On Synthroid. #History of migraines: On rizatriptan and topiramate * #History of Down syndrome: Stable #History of DVT left lower extremity: On xarelto CODE STATUS: DNR CCA no intubation * Patient's mother, who is his healthcare POA was counseled extensively about different types of CODE STATUS including full code, DNR CCA and DNR CCA. * Mother wishes for patient to be DNRCCA no intubation, as she said he is declining in health. * total face to face time: 17 mins Charges/Coding Visit Charges OBSV E&M: 22209 Initial observation care L2 Multi Select Codes Visit Charges Visit Charges: 25616 Disch Hosp
[2022-01-07 12:14] VITALS: BP 113/79; PULSE 86; RESP 14; TEMP 36.8; O2SAT 99
[2022-01-07 12:35] VITALS: BP 129/85; PULSE 97; RESP 16; TEMP 36.7; O2SAT 97
[2022-01-07 12:40] VITALS: BMI 27.9
--- NOTE | 2022-01-07 13:47 | CM.ED ---
Referral Source: MD Referral Reason: Mother reports she can't care for patient at home MICHAEL met with MD who stated that patient is unable to ambulate at home. MICHAEL met with patient's mother. She reports that she has had hip issues and can't care for patient. She does not want patient to go to senior care. She said that she works with Monique Rojo from the [facility] [employer] of . Mother reports her first choice for placement for patient is [facility] and second choice is [facility]. Mother was provided with list of SNF placements in [facility]. Mother advised that the placement will be intermission coordinator. MICHAEL called and left voice mail message for [place] Jolly3 social services coordinator. Plan: SNF at discharge Christi GONZALES
[2022-01-07] MEDS: 0.9% Normal Saline 1,000 ML 75 ML IV (13:54)
[2022-01-07 16:07] VITALS: BP 115/79; PULSE 98; RESP 18; TEMP 36.2; O2SAT 100
[2022-01-07 20:47] VITALS: BP 96/52; PULSE 70; RESP 16; TEMP 36.6; O2SAT 99
[2022-01-07] MEDS: Topiramate 25 MG Tablet PO (21:02)
[2022-01-07] MEDS: Pantoprazole Sodium 40 MG Tablet PO (21:02)
[2022-01-07] MEDS: Acetaminophen 325 MG Tablet 650 MG PO (21:05)
[2022-01-08 03:03] VITALS: BP 109/50; PULSE 77; RESP 16; TEMP 36.4; O2SAT 98
[2022-01-08] MEDS: Acetaminophen 325 MG Tablet 650 MG PO ×2 (03:13→21:38)
[2022-01-08 06:00] LABS: Absolute Lymphocyte Count 1.16 X10^3/uL (0.83-4.51); Absolute Neutrophil Count 3.3 X10^3/uL (2.0-7.7); Basophil# 0.09 X10^3/uL; Basophil% 1.7 % (0-1); Eosinophil# 0.15 X10^3/uL; Eosinophils% 2.8 % (0-5); Hematocrit 33.1 % (40-54); Hemoglobin 11.3 g/dL (13.0-16.5); Lymphocyte # 1.16 X10^3/ul (0.83-4.51); Lymphocyte % 21.5 % (19-41); Mean Corp Hgb Conc 34.1 g/dL (32-36); Mean Corpuscular Hgb 35.6 pg (27.0-32.0); Mean Corpuscular Volume 104.4 fL (80-94); Mean Platelet Vol. 9.3 fl (6.2-12.0); Monocyte# 0.72 X10^3/uL; Monocyte% 13.3 % (0-10); NRBC Flagged by Analyzer 0 % (0-5); Neutrophil # 3.26 X10^3/uL (2.7-7.7); Neutrophil % 60.3 % (47-70); Platelet Count 249 K/mm3 (150-450); RBC Distribution Width CV 13.2 % (11.6-14.6); RBC Distribution Width SD 51.1 fl (35.1-43.9); Red Blood Count 3.17 M/mm3 (4.6-6.2); White Blood Count 5.4 K/mm3 (4.4-11.0)
[2022-01-08 06:33] LABS: Anion Gap 4 (5-15); BUN 11 mg/dL (7-18); BUN/Creat Ratio 15.5 RATIO (10-20); Chloride 108 mmol/L (98-107); Creatinine, Serum 0.71 mg/dL (0.70-1.30); EST Glomerular Filtration Rate 120 mL/min (>60); Est Glom Filt Rate - Afr Amer 145 mL/min (>60); Estimated Creatinine Clearance 89.05 ml/min; Glucose 92 mg/dL (74-106); Sodium Level 137 mmol/L (136-145)
[2022-01-08 09:15] VITALS: BP 118/68; PULSE 70; RESP 16; TEMP 36.7; O2SAT 98
[2022-01-08] MEDS: Pantoprazole Sodium 40 MG Tablet PO ×2 (09:15→21:38)
[2022-01-08] MEDS: Rivaroxaban 20 MG Tablet PO (09:16)
[2022-01-08] MEDS: Levothyroxine 25 MCG TABLET PO (09:16)
[2022-01-08] MEDS: Multivitamins,Ther W-Minerals Tablet 1 TABLET PO (09:16)
[2022-01-08] MEDS: Topiramate 25 MG Tablet PO ×2 (09:16→21:38)
--- NOTE | 2022-01-08 10:30 | CASEMGMT ---
Social Work Note Christi MERRY RODRIGUEZ faxed initial referral to [facility]. MICHAEL received call from Ene at [facility] stating they can accept pt. MICHAEL informed Ene that PAS/RR will be completed and pt will trip the screen so pt will be at [facility] through the weekend. Ene states understanding. Plan: SNF Jolly Gomez AUTO BODY WORKER, DUCTFIXING PLUMBER
--- NOTE | 2022-01-08 11:02 | PN.HOSP_ITS ---
Subjective Subjective Patient seen and examined. HE was working with OT at time of review. He had no active complaints. He had an uneventful night and has remained hemodynamically stable Objective Data Objective Data Vital Signs: Vital Signs Temp Pulse Resp BP Pulse Ox 98.0 F 70 16 118/68 98 01/08/22 09:15 01/08/22 09:15 01/08/22 09:15 01/08/22 09:15 01/08/22 09:15 Oxygen Delivery Method Room Air Weight: 157 lb 10.088 oz Body Mass Index (BMI) 27.9 Intake & Output: Intake and Output for Last 24 Hours 01/06/22 01/07/22 01/08/22 23:59 23:59 23:59 Intake Total 250 / 250 1150 / 1150 Output Total 550 / 550 Balance -300 / -300 1150 / 1150 Lab / Micro Data Result Diagrams: 01/08/22 05:44 01/08/22 05:44 Labs: Laboratory Results - last 24 hr 01/07/22 10:35: Sodium 138, Potassium 4.3, Chloride 108 H, Carbon Dioxide 26.0, Anion Gap 4 L, BUN 14, Creatinine 1.04, Estim Creat Clear Calc 75.53, Est GFR (MDRD) Af Amer 94, Est GFR (MDRD) Non-Af 77, BUN/Creatinine Ratio 13.5, Glucose 119 H, Calcium 8.6, Total Bilirubin 0.60, AST 35, ALT 25, Alkaline Phosphatase 102, Total Protein 6.6, Albumin 2.6 L, Globulin 4.0, Albumin/Globulin Ratio 0.6 L 01/08/22 05:44: WBC 5.4, RBC 3.17 L, Hgb 11.3 L, Hct 33.1 L, MCV 104.4 H, MCH 35.6 H, MCHC 34.1, RDW Std Deviation 51.1 H, RDW Coeff of Marilia 13.2, Plt Count 249, MPV 9.3, Immature Gran % (Auto) 0.400, Neut % (Auto) 60.3, Lymph % (Auto) 21.5, [place] % (Auto) 13.3 H, Eos % (Auto) 2.8, Baso % (Auto) 1.7 H, Absolute Neuts (auto) 3.3, Absolute Lymphs (auto) 1.16, Nucleated RBC % 0 01/08/22 05:44: Sodium 137, Potassium 4.0, Chloride 108 H, Carbon Dioxide 25.0, Anion Gap 4 L, BUN 11, Creatinine 0.71, Estim Creat Clear Calc 89.05, Est GFR (MDRD) Af Amer 145, Est GFR (MDRD) Non-Af 120, BUN/Creatinine Ratio 15.5, Glu cose 92, Calcium 8.0 L Micro: Microbiology 01/07/22 18:10 Nasal Secretion SARS-CoV-2 Antigen (Rapid) - Final Radiography Diagnostic Testing: Radiology Impression Knee X-Ray 01/07/22 11:05 IMPRESSION: Joint effusion and soft tissue swelling. Electronically Signed: Maynor Pantoja MD at 11:54 EST , Physical Exam Const alert General Appearance: cooperative Exam Limitations: behavioral limitations HEENT normocephalic, head/scalp atraumatic and moist oral mucous membranes Head and Scalp: normocephalic Eyes PERRL Neck no lymphadenopathy and supple Resp normal respiratory effort, no retractions, no use of accessory muscles and clear to auscultation bilaterally Cardio regular rate, regular rhythm, S1 normal heart sound and S2 normal heart sound GI normal to inspection, nondistended, normoactive bowel sounds, soft to palpation, non-tender and non-distended Extremity normal to inspection and no clubbing, cyanosis or edema Extremity Narrative: minimal swelling of left knee has resolved. No differential warmth Peripheral Pulses: Yes pulses 2+ throughout Skin no rashes or lesions noted Neuro CN's II-XII intact bilaterally and moves all extremities Sensorium / Orientation: awake and alert Psych affect normal Assessment & Plan Assessment/Plan (1) Arthritis of left ankle: (2) Adult failure to thrive: PLAN: #Weakness and debility with failure to thrive * PT/OT on board. Fall precaution * For placement as mother unable to care for him * * #Left knee pain * improving. Has miminal swelling and tenderness today. * xray of left knee showed joint effusion and soft tissue swelling * PT.OT on board. Fall precautions * #Arthritis of left ankle * Mother states he was recently given a brace for his left lower extremity just prior to admission. * PT OT on board. Fall precautions. * #GERD: On PPI #History of asthma: Breathing treatments bronchodilators. #Hypothyroidism: On Synthroid. 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 CODE STATUS: DNR CCA no intubation * Charges/Coding Visit Charges Inpatient E&M: 33129 Subs Hosp L2
--- NOTE | 2022-01-08 11:36 | CASEMGMT ---
Addendum entered by Lala Hobbs 01/08/22 13:32: TC to pt mother, guardian to complete [employer] form. No answer at phone number listed and answering machine asks for remote access number. Unable to leave a message. Original Note: DEMARCUS CM in to pt room for MCCOY form. Pt sitting up in chair, unable to answer questions. Will defer.
--- NOTE | 2022-01-08 12:18 | CASEMGMT ---
Social Work SW called pt's mother to let her know that [facility] can take pt. Pt's mother states that [facility] is actually the family's first choice, and pt's health care assistant has been in touch with them. SW explained will make a referral to [facility]. SW also explained that due to p's diagnosis of Down's Syndrome, this will delay discharge as patient will require a further review review to make sure that pt is being placed in the right level of care. SW explained pt will be here through the weekend and into next week. Pt's mother states understanding. SW explained will send over the referral to [facility] and see if they would be able to take pt, will let her know. SW also asked about the diagnoses of anxiety and depression, pt's mother states that he doesn't have these diagnoses, and that he has never needed any services for them. SW called [facility], faxed referral, they are to let SW know if they can take pt. PAS/RR started. SW called Probate [address] to get a copy of guardianship paperwork, Probate Court emailed it to SW. SW will place in pt's chart. SW will continue to follow. Plan: SNF, referral to [facility], pending acceptance. Once accepted, PAS/RR will be submitted to get the process started for the further review. ARASELI King
[2022-01-08 14:45] VITALS: BP 137/77; PULSE 70; RESP 16; TEMP 36.6; O2SAT 100
--- NOTE | 2022-01-08 15:19 | CASEMGMT ---
Social Work Note SW placed a call to [facility] and left message for Michaela regarding referral. MICHAEL waiting for call back. Plan: SNF pending acceptance. PAS/RR will need to be completed once SNF is confirmed. Pt will trip the screen and will need approval from Board of DD before pt can discharge. Jolly Gomez HATCH TENDER, PUBLIC ADDRESS SERVICER
[2022-01-08 20:00] VITALS: O2SAT 99
[2022-01-08 20:45] VITALS: BP 106/75; PULSE 95; RESP 18; TEMP 36.5; O2SAT 99
[2022-01-09 02:50] VITALS: BP 118/67; PULSE 86; RESP 18; TEMP 36.4; O2SAT 99
[2022-01-09 06:16] LABS: Absolute Lymphocyte Count 1.07 X10^3/uL (0.83-4.51); Absolute Neutrophil Count 5.1 X10^3/uL (2.0-7.7); Basophil# 0.07 X10^3/uL; Eosinophil# 0.09 X10^3/uL; Eosinophils% 1.3 % (0-5); Hematocrit 35.1 % (40-54); Lymphocyte # 1.07 X10^3/ul (0.83-4.51); Mean Corp Hgb Conc 34.2 g/dL (32-36); Mean Corpuscular Hgb 35.3 pg (27.0-32.0); Mean Corpuscular Volume 103.2 fL (80-94); Mean Platelet Vol. 9.5 fl (6.2-12.0); Monocyte# 0.76 X10^3/uL; Monocyte% 10.7 % (0-10); NRBC Flagged by Analyzer 0 % (0-5); Neutrophil # 5.09 X10^3/uL (2.7-7.7); Neutrophil % 71.6 % (47-70); Platelet Count 262 K/mm3 (150-450); RBC Distribution Width CV 13.2 % (11.6-14.6); RBC Distribution Width SD 50.3 fl (35.1-43.9); White Blood Count 7.1 K/mm3 (4.4-11.0)
[2022-01-09 06:49] LABS: Anion Gap 5 (5-15); BUN 13 mg/dL (7-18); BUN/Creat Ratio 17.3 RATIO (10-20); Calcium,Total 8.1 mg/dL (8.5-10.1); Chloride 106 mmol/L (98-107); Creatinine, Serum 0.75 mg/dL (0.70-1.30); EST Glomerular Filtration Rate 113 mL/min (>60); Est Glom Filt Rate - Afr Amer 136 mL/min (>60); Glucose 104 mg/dL (74-106); Potassium 3.9 mmol/L (3.5-5.1); Sodium Level 136 mmol/L (136-145)
[2022-01-09 08:14] VITALS: BP 121/65; PULSE 86; RESP 18; TEMP 36.3; O2SAT 99
[2022-01-09] MEDS: Pantoprazole Sodium 40 MG Tablet PO ×2 (08:37→23:31)
[2022-01-09] MEDS: Levothyroxine 25 MCG TABLET PO (08:37)
[2022-01-09] MEDS: Topiramate 25 MG Tablet PO ×2 (08:37→23:31)
[2022-01-09] MEDS: Multivitamins,Ther W-Minerals Tablet 1 TABLET PO (08:37)
[2022-01-09] MEDS: Rivaroxaban 20 MG Tablet PO (08:37)
--- NOTE | 2022-01-09 11:19 | PN.HOSP_ITS ---
Subjective Subjective Patient seen and examined. He wasnt really communicating well, but had no active complaints. He has remained hemodynamically stable. Objective Data Objective Data Vital Signs: Vital Signs Temp Pulse Resp BP Pulse Ox 97.4 F L 86 18 121/65 H 99 01/09/22 08:14 01/09/22 08:14 01/09/22 08:14 01/09/22 08:14 01/09/22 08:14 Oxygen Delivery Method Room Air Weight: 157 lb 10.088 oz Body Mass Index (BMI) 27.9 Intake & Output: Intake and Output for Last 24 Hours 01/07/22 01/08/22 01/09/22 23:59 23:59 23:59 Intake Total 250 / 250 1850 / 1850 Output Total 550 / 550 800 / 1050 650 / 650 Balance -300 / -300 1050 / 800 -650 / -650 Lab / Micro Data Result Diagrams: 01/09/22 05:50 01/09/22 05:50 Labs: Laboratory Results - last 24 hr 01/09/22 05:50: WBC 7.1, RBC 3.40 L, Hgb 12.0 L, Hct 35.1 L, MCV 103.2 H, MCH 35.3 H, MCHC 34.2, RDW Std Deviation 50.3 H, RDW Coeff of Marilia 13.2, Plt Count 262, MPV 9.5, Immature Gran % (Auto) 0.400, Neut % (Auto) 71.6 H, Lymph % (Auto) 15.0 L, [place] % (Auto) 10.7 H, Eos % (Auto) 1.3, Baso % (Auto) 1.0, Absolute Neuts (auto) 5.1, Absolute Lymphs (auto) 1.07, Nucleated RBC % 0 01/09/22 05:50: Sodium 136, Potassium 3.9, Chloride 106, Carbon Dioxide 25.0, Anion Gap 5, BUN 13, Creatinine 0.75, Estim Creat Clear Calc 84.30, Est GFR (MDRD) Af Amer 136, Est GFR (MDRD) Non-Af 113, BUN/Creatinine Ratio 17.3, Glucose 104, Calcium 8.1 L Micro: Microbiology 01/07/22 18:10 Nasal Secretion SARS-CoV-2 Antigen (Rapid) - Final Physical Exam Const alert General Appearance: cooperative Exam Limitations: behavioral limitations HEENT normocephalic, head/scalp atraumatic and moist oral mucous membranes Head and Scalp: normocephalic Eyes PERRL Neck no lymphadenopathy and supple Resp normal respiratory effort, no retractions, no use of accessory muscles and clear to auscultation bilaterally Cardio regular rate, regular rhythm, S1 normal heart sound and S2 normal heart sound GI normal to inspection, nondistended, normoactive bowel sounds, soft to palpation, non-tender and non-distended Extremity normal to inspection and no clubbing, cyanosis or edema Extremity Narrative: minimal swelling of left knee has resolved. Minimal differential warmth Skin no rashes or lesions noted Neuro CN's II-XII intact bilaterally and moves all extremities Sensorium / Orientation: awake and alert Psych affect normal Assessment & Plan Assessment/Plan (1) Arthritis of left ankle: (2) Adult failure to thrive: PLAN: #Weakness and debility with failure to thrive * PT/OT on board. Fall precaution * For placement as mother unable to care for him * * #Left knee pain due to arthritis * improving. * xray of left knee showed joint effusion and soft tissue swelling * PT.OT on board. Fall precautions * #Arthritis of left ankle * Mother states he was recently given a brace for his left lower extremity just prior to admission. * PT OT on board. Fall precautions. * #GERD: On PPI #History of asthma: Breathing treatments bronchodilators. #Hypothyroidism: On Synthroid. 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 CODE STATUS: DNR CCA no intubation * Charges/Coding Visit Charges Inpatient E&M: 04602 Subs Hosp L2
[2022-01-09] MEDS: Acetaminophen 325 MG Tablet 650 MG PO ×2 (14:33→23:31)
--- NOTE | 2022-01-09 14:40 | CASEMGMT ---
RN JAMEY NOTE: Intro role of CM to pt's mother and MCCOY form explained re: Observation status for treatment of debility and lt knee pain. Explained hospitalization will be paid per his insurance policy for Outpatient billing and condition will continue to be evaluated for Inpt necessity. Also let mother know that [facility] sends paper in the billing packet with their phone number if questions arise. Mother verbalizes understanding and does not have further questions. Form signed, copy made and placed in chart, and original given to mother. Patricio HERNANDEZ RN CM
[2022-01-09 15:15] VITALS: BP 121/70; PULSE 89; RESP 16; TEMP 36.7; O2SAT 100
[2022-01-09 20:35] VITALS: BP 102/67; PULSE 92; RESP 18; TEMP 36.6; O2SAT 98
[2022-01-10 03:19] VITALS: BP 101/48; PULSE 83; RESP 18; TEMP 36.6; O2SAT 96
[2022-01-10 06:17] LABS: Absolute Lymphocyte Count 1.09 X10^3/uL (0.83-4.51); Basophil# 0.05 X10^3/uL; Eosinophil# 0.18 X10^3/uL; Eosinophils% 3.6 % (0-5); Hematocrit 33.4 % (40-54); Hemoglobin 11.5 g/dL (13.0-16.5); Lymphocyte # 1.09 X10^3/ul (0.83-4.51); Mean Corp Hgb Conc 34.4 g/dL (32-36); Mean Corpuscular Hgb 35.5 pg (27.0-32.0); Mean Corpuscular Volume 103.1 fL (80-94); Mean Platelet Vol. 9.7 fl (6.2-12.0); Monocyte# 0.63 X10^3/uL; Monocyte% 12.7 % (0-10); NRBC Flagged by Analyzer 0 % (0-5); Neutrophil # 2.99 X10^3/uL (2.7-7.7); Neutrophil % 60.5 % (47-70); Platelet Count 260 K/mm3 (150-450); RBC Distribution Width CV 13.2 % (11.6-14.6); RBC Distribution Width SD 50.5 fl (35.1-43.9); Red Blood Count 3.24 M/mm3 (4.6-6.2)
[2022-01-10 06:39] LABS: Anion Gap 7 (5-15); BUN 11 mg/dL (7-18); BUN/Creat Ratio 14.7 RATIO (10-20); Calcium,Total 8.4 mg/dL (8.5-10.1); Chloride 109 mmol/L (98-107); Creatinine, Serum 0.75 mg/dL (0.70-1.30); EST Glomerular Filtration Rate 114 mL/min (>60); Est Glom Filt Rate - Afr Amer 137 mL/min (>60); Glucose 100 mg/dL (74-106); Potassium 3.6 mmol/L (3.5-5.1); Sodium Level 139 mmol/L (136-145)
[2022-01-10 09:00] VITALS: BP 110/50; PULSE 82; RESP 18; TEMP 36.1; O2SAT 97
[2022-01-10] MEDS: Levothyroxine 25 MCG TABLET PO (09:27)
[2022-01-10] MEDS: Topiramate 25 MG Tablet PO ×2 (09:27→21:23)
[2022-01-10] MEDS: Multivitamins,Ther W-Minerals Tablet 1 TABLET PO (09:27)
[2022-01-10] MEDS: Rivaroxaban 20 MG Tablet PO (09:27)
[2022-01-10] MEDS: Pantoprazole Sodium 40 MG Tablet PO ×2 (09:27→21:23)
--- NOTE | 2022-01-10 10:36 | PN.HOSP_ITS ---
Subjective Subjective Patient seen and examined. He was comfortably eating breakfast and had no acute complaints. He has remained hemodynamically stable. Review of systems otherwise negative. Objective Data Objective Data Vital Signs: Vital Signs Temp Pulse Resp BP Pulse Ox 97.8 F 83 18 101/48 L 96 01/10/22 03:19 01/10/22 03:19 01/10/22 03:19 01/10/22 03:19 01/10/22 03:19 Oxygen Delivery Method Room Air Weight: 157 lb 10.088 oz Body Mass Index (BMI) 27.9 Intake & Output: Intake and Output for Last 24 Hours 01/08/22 01/09/22 01/10/22 23:59 23:59 23:59 Intake Total 1850 / 1850 650 / 650 Output Total 800 / 1050 1050 / 0 1575 / 1575 Balance 1050 / 800 -400 / -1400 -1575 / -1575 Lab / Micro Data Result Diagrams: 01/10/22 05:45 01/10/22 05:45 Labs: Laboratory Results - last 24 hr 01/10/22 05:45: WBC 5.0, RBC 3.24 L, Hgb 11.5 L, Hct 33.4 L, MCV 103.1 H, MCH 35.5 H, MCHC 34.4, RDW Std Deviation 50.5 H, RDW Coeff of Marilia 13.2, Plt Count 260, MPV 9.7, Immature Gran % (Auto) 0.200, Neut % (Auto) 60.5, Lymph % (Auto) 22.0, [place] % (Auto) 12.7 H, Eos % (Auto) 3.6, Baso % (Auto) 1.0, Absolute Neuts (auto) 3.0, Absolute Lymphs (auto) 1.09, Nucleated RBC % 0 01/10/22 05:45: Sodium 139, Potassium 3.6, Chloride 109 H, Carbon Dioxide 23.0, Anion Gap 7, BUN 11, Creatinine 0.75, Estim Creat Clear Calc 84.30, Est GFR (MDRD) Af Amer 137, Est GFR (MDRD) Non-Af 114, BUN/Creatinine Ratio 14.7, Glucose 100, Calcium 8.4 L Micro: Microbiology 01/07/22 18:10 Nasal Secretion SARS-CoV-2 Antigen (Rapid) - Final Physical Exam Const alert General Appearance: cooperative Exam Limitations: behavioral limitations HEENT normocephalic, head/scalp atraumatic and moist oral mucous membranes Head and Scalp: normocephalic Eyes PERRL Neck no lymphadenopathy and supple Resp normal respiratory effort, no retractions, no use of accessory muscles and clear to auscultation bilaterally Cardio regular rate, regular rhythm, S1 normal heart sound and S2 normal heart sound GI normal to inspection, nondistended, normoactive bowel sounds, soft to palpation, non-tender and non-distended Extremity normal to inspection and no clubbing, cyanosis or edema Extremity Narrative: minimal swelling of left knee has resolved. Minimal differential warmth Skin no rashes or lesions noted Neuro CN's II-XII intact bilaterally and moves all extremities Sensorium / Orientation: awake and alert Psych affect normal Assessment & Plan Assessment/Plan (1) Arthritis of left ankle: (2) Adult failure to thrive: PLAN: #Weakness and debility with failure to thrive * PT/OT on board. Fall precaution * For placement as mother unable to care for him * * #Left knee pain due to arthritis * improving. * xray of left knee showed joint effusion and soft tissue swelling * PT.OT on board. Fall precautions * #Arthritis of left ankle * Mother states he was recently given a brace for his left lower extremity just prior to admission. * PT OT on board. Fall precautions. * #GERD: On PPI #History of asthma: Breathing treatments bronchodilators. #Hypothyroidism: On Synthroid. 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 Needs approval from the Board of Disability before he can be placed. Case management on board. CODE STATUS: DNR CCA no intubation * Charges/Coding Visit Charges Inpatient E&M: 73179 Subs Hosp L2
[2022-01-10 15:00] VITALS: BP 112/70; PULSE 84; RESP 18; TEMP 36.7; O2SAT 97
[2022-01-10 21:08] VITALS: BP 109/81; PULSE 85; RESP 16; TEMP 36.9; O2SAT 96
[2022-01-10] MEDS: Acetaminophen 325 MG Tablet 650 MG PO (21:23)
[2022-01-11] MEDS: Rizatriptan Benzoate 10 MG Tablet PO (00:51)
[2022-01-11 03:14] VITALS: BP 119/83; PULSE 103; RESP 18; TEMP 36.4; O2SAT 98
[2022-01-11 05:55] LABS: Absolute Lymphocyte Count 1.57 X10^3/uL (0.83-4.51); Absolute Neutrophil Count 3.6 X10^3/uL (2.0-7.7); Basophil# 0.06 X10^3/uL; Eosinophil# 0.21 X10^3/uL; Eosinophils% 3.4 % (0-5); Hemoglobin 12.5 g/dL (13.0-16.5); Lymphocyte # 1.57 X10^3/ul (0.83-4.51); Lymphocyte % 25.7 % (19-41); Mean Corp Hgb Conc 34.7 g/dL (32-36); Mean Corpuscular Hgb 35.6 pg (27.0-32.0); Mean Corpuscular Volume 102.6 fL (80-94); Mean Platelet Vol. 9.6 fl (6.2-12.0); Monocyte% 11.4 % (0-10); NRBC Flagged by Analyzer 0 % (0-5); Neutrophil # 3.57 X10^3/uL (2.7-7.7); Neutrophil % 58.3 % (47-70); Platelet Count 276 K/mm3 (150-450); RBC Distribution Width CV 13.3 % (11.6-14.6); RBC Distribution Width SD 50.2 fl (35.1-43.9); Red Blood Count 3.51 M/mm3 (4.6-6.2); White Blood Count 6.1 K/mm3 (4.4-11.0)
[2022-01-11 06:19] LABS: Anion Gap 7 (5-15); BUN 12 mg/dL (7-18); BUN/Creat Ratio 17.1 RATIO (10-20); Chloride 106 mmol/L (98-107); EST Glomerular Filtration Rate 122 mL/min (>60); Est Glom Filt Rate - Afr Amer 148 mL/min (>60); Estimated Creatinine Clearance 90.32 ml/min; Glucose 99 mg/dL (74-106); Sodium Level 136 mmol/L (136-145)
--- NOTE | 2022-01-11 07:14 | CASEMGMT ---
Late entry for 01/09/22 at 2151: Jyoti, education and training coordinator for the [facility] enquired as to pt's COVID vaccination status and test results. Notified that pt has received the vaccine and tested negative for COVID on 01/07/22. Per Jyoti, pt has been accepted to the [facility]. Katerin Simmons RN CM .
--- NOTE | 2022-01-11 07:40 | PCM.PN.HOSP ---
Subjective Subjective Follow-up on chronic debility/left knee arthritis: Patient was seen and examined. No acute events overnight. Not very communicative. Vitals are stable. Objective Data Objective Data Vital Signs: Vital Signs Temp Pulse Resp BP Pulse Ox 97.6 F L 103 H 18 119/83 H 98 01/11/22 03:14 01/11/22 03:14 01/11/22 03:14 01/11/22 03:14 01/11/22 03:14 Oxygen Delivery Method Room Air Weight: 71.5 kg Body Mass Index (BMI) 27.9 Intake & Output: Intake and Output for Last 24 Hours 01/09/22 01/10/22 01/11/22 23:59 23:59 23:59 Intake Total 650 / 650 600 / 600 Output Total 1050 / 2050 2325 / 2475 450 / 450 Balance -400 / -1400 -1725 / -1875 -450 / -450 Lab / Micro Data Result Diagrams: 01/11/22 05:05 01/11/22 05:05 Labs: Laboratory Results - last 24 hr 01/11/22 05:05: WBC 6.1, RBC 3.51 L, Hgb 12.5 L, Hct 36.0 L, MCV 102.6 H, MCH 35.6 H, MCHC 34.7, RDW Std Deviation 50.2 H, RDW Coeff of Marilia 13.3, Plt Count 276, MPV 9.6, Immature Gran % (Auto) 0.200, Neut % (Auto) 58.3, Lymph % (Auto) 25.7, [place] % (Auto) 11.4 H, Eos % (Auto) 3.4, Baso % (Auto) 1.0, Absolute Neuts (auto) 3.6, Absolute Lymphs (auto) 1.57, Nucleated RBC % 0 01/11/22 05:05: Sodium 136, Potassium 4.0, Chloride 106, Carbon Dioxide 23.0, Anion Gap 7, BUN 12, Creatinine 0.70, Estim Creat Clear Calc 90.32, Est GFR (MDRD) Af Amer 148, Est GFR (MDRD) Non-Af 122, BUN/Creatinine Ratio 17.1, Glucose 99, Calcium 8.0 L Micro: Microbiology 01/07/22 18:10 Nasal Secretion SARS-CoV-2 Antigen (Rapid) - Final Physical Exam Narrative Physical exam: General: Alert, Cooperative, No apparent distress, Down syndrome facies HEENT: Atraumatic Oral: Moist Mucosa Neck: Supple Lungs: Clear to auscultation Cardiovascular: HS I+II, regular, no murmurs Abdomen: Bowel Sounds Present, Soft, Non Tender Extremities: No edema Assessment & Plan Assessment/Plan (1) Arthritis of left ankle: (2) Adult failure to thrive: PLAN: 1. Debility, patient with Down syndrome Mother unable to take care of Awaiting discharge planning from [facility] 2. Acute left knee arthritis, improving 3. Rest of his chronic medical conditions including GERD, asthma, hypothyroidism, migraines DVT of the left extremities remained stable Home meds reviewed 4. DVT prophylaxis?on Xarelto Charges/Coding Visit Charges Inpatient E&M: 37488 Subs Hosp L2
[2022-01-11 08:05] VITALS: O2SAT 98
[2022-01-11 08:08] VITALS: BP 141/66; PULSE 82; RESP 18; TEMP 36.8; O2SAT 98
[2022-01-11] MEDS: Multivitamins,Ther W-Minerals Tablet 1 TABLET PO (08:10)
[2022-01-11 09:17] VITALS: O2SAT 98
[2022-01-11] MEDS: Pantoprazole Sodium 40 MG Tablet PO ×2 (09:37→22:03)
[2022-01-11] MEDS: Topiramate 25 MG Tablet PO ×2 (09:37→22:03)
[2022-01-11] MEDS: Rivaroxaban 20 MG Tablet PO (09:38)
[2022-01-11] MEDS: Montelukast 10 MG Tablet PO (09:39)
[2022-01-11] MEDS: Levothyroxine 25 MCG TABLET PO (09:41)
[2022-01-11] MEDS: Acetaminophen 325 MG Tablet 650 MG PO (09:41)
--- NOTE | 2022-01-11 10:25 | CASEMGMT ---
Social Work Note SW received update that pt has been accepted to [facility]. MICHAEL placed a call to Michaela in admissions at [facility] and left message that MICHAEL is aware of acceptance, PAS/RR will be completed and pt will trip the screen due to Board [facility] services. MICHAEL informed Michaela that pt is medically ready for discharge once approval from Board [facility] is received. Pt has Wood Boatbuilder Apprentice Monique Rojo from [facility]. MICHAEL placed a call to [facility] and spoke with Monique Rojo (ext [phone]) and updated her that pt has been accepted to [facility] and that pt is medically ready for discharge once approval from [facility] through the PAS/RR system is obtained. Monique states she will talk with her bit and shank department supervisor and work on the approval for pt. MICHAEL faxed updated clinicals to [facility]. Plan: [facility] pending approval from [facility] Jolly Gomez SENIOR INSIGHT MANAGER INTERNATIONAL, MAIL MESSENGER
--- NOTE | 2022-01-11 15:11 | CASEMGMT ---
Addendum entered by Jolly Gomez 01/11/22 16:32: SW checked [employer], determination from Board of DD is still pending. MICHAEL placed a call to [facility] and spoke with Michaela and updated her that Board of DD approval is still pending at this time. Original Note: Social Work Note SW updated that pt's mother Aniya is at [facility], requesting to speak to SW. SW in to speak with pt and Aniya. MICHAEL introduced self and role at [facility]. MICHAEL informed Aniya that [facility] is able to accept pt, approval from [facility] Board of DD is needed. Aniya states understanding. MICHAEL checked [employer] website, results from PAS/RR are not available. Plan: [facility] once approval from Board of DD is obtained. Jolly Gomez TAKE AWAY ATTENDANT, DAM WORKER
[2022-01-11 15:23] VITALS: BP 111/66; PULSE 78; RESP 18; TEMP 37; O2SAT 98
[2022-01-11 22:01] VITALS: BP 104/47; PULSE 76; RESP 18; TEMP 36.6; O2SAT 95
[2022-01-12 04:16] VITALS: BP 126/86; PULSE 84; RESP 18; TEMP 36.4; O2SAT 98
[2022-01-12 05:49] LABS: Absolute Lymphocyte Count 1.07 X10^3/uL (0.83-4.51); Absolute Neutrophil Count 2.8 X10^3/uL (2.0-7.7); Basophil# 0.05 X10^3/uL; Eosinophil# 0.19 X10^3/uL; Hematocrit 34.7 % (40-54); Hemoglobin 11.9 g/dL (13.0-16.5); Lymphocyte # 1.07 X10^3/ul (0.83-4.51); Lymphocyte % 22.4 % (19-41); Mean Corp Hgb Conc 34.3 g/dL (32-36); Mean Corpuscular Hgb 35.3 pg (27.0-32.0); Mean Platelet Vol. 9.5 fl (6.2-12.0); Monocyte# 0.63 X10^3/uL; Monocyte% 13.2 % (0-10); NRBC Flagged by Analyzer 0 % (0-5); Neutrophil # 2.84 X10^3/uL (2.7-7.7); Neutrophil % 59.4 % (47-70); Platelet Count 277 K/mm3 (150-450); RBC Distribution Width CV 13.3 % (11.6-14.6); RBC Distribution Width SD 50.4 fl (35.1-43.9); Red Blood Count 3.37 M/mm3 (4.6-6.2); White Blood Count 4.8 K/mm3 (4.4-11.0)
[2022-01-12 06:25] LABS: Anion Gap 6 (5-15); BUN 12 mg/dL (7-18); Chloride 104 mmol/L (98-107); Creatinine, Serum 0.75 mg/dL (0.70-1.30); EST Glomerular Filtration Rate 113 mL/min (>60); Est Glom Filt Rate - Afr Amer 137 mL/min (>60); Glucose 99 mg/dL (74-106); Potassium 3.5 mmol/L (3.5-5.1); Sodium Level 137 mmol/L (136-145)
[2022-01-12] MEDS: Multivitamins,Ther W-Minerals Tablet 1 TABLET PO (08:35)
[2022-01-12 08:36] VITALS: BP 98/80; PULSE 87; RESP 18; TEMP 36.8; O2SAT 98
--- NOTE | 2022-01-12 09:04 | CASEMGMT ---
Addendum entered by Jolly Gomez 01/12/22 09:17: SW placed a call to Michaela at [facility] and updated her that no determination has been made yet from Board of DD. Once determination is made, pt will discharge to [facility]. Michaela states understanding. Original Note: Social Work Note SW checked [employer] website. No determination from Board of DD has been made yet. Jolly Gomez MANAGER HOUSEKEEPING, ACQUISITIONS EDITOR
--- NOTE | 2022-01-12 09:40 | PN.HOSP_ITS ---
Subjective Subjective Follow-up on chronic debility/left knee arthritis: Patient was seen and examined. No acute events overnight. Objective Data Objective Data Vital Signs: Vital Signs Temp Pulse Resp BP Pulse Ox 98.3 F 87 18 98/80 98 01/12/22 08:36 01/12/22 08:36 01/12/22 08:36 01/12/22 08:36 01/12/22 08:36 Oxygen Delivery Method Room Air Weight: 71.5 kg Body Mass Index (BMI) 27.9 Intake & Output: Intake and Output for Last 24 Hours 01/10/22 01/11/22 01/12/22 23:59 23:59 23:59 Intake Total 600 / 600 1450 / 1450 200 / 200 Output Total 2325 / 2475 1200 / 1200 400 / 400 Balance -1725 / -1875 250 / 250 -200 / -200 Lab / Micro Data Result Diagrams: 01/12/22 05:16 01/12/22 05:16 Labs: Laboratory Results - last 24 hr 01/12/22 05:16: WBC 4.8, RBC 3.37 L, Hgb 11.9 L, Hct 34.7 L, MCV 103.0 H, MCH 35.3 H, MCHC 34.3, RDW Std Deviation 50.4 H, RDW Coeff of Marilia 13.3, Plt Count 277, MPV 9.5, Immature Gran % (Auto) 0.000, Neut % (Auto) 59.4, Lymph % (Auto) 22.4, [place] % (Auto) 13.2 H, Eos % (Auto) 4.0, Baso % (Auto) 1.0, Absolute Neuts (auto) 2.8, Absolute Lymphs (auto) 1.07, Nucleated RBC % 0 01/12/22 05:16: Sodium 137, Potassium 3.5, Chloride 104, Carbon Dioxide 27.0, Anion Gap 6, BUN 12, Creatinine 0.75, Estim Creat Clear Calc 84.30, Est GFR ( MDRD) Af Amer 137, Est GFR (MDRD) Non-Af 113, BUN/Creatinine Ratio 16.0, Glucose 99, Calcium 8.0 L Micro: Microbiology 01/07/22 18:10 Nasal Secretion SARS-CoV-2 Antigen (Rapid) - Final Physical Exam Narrative Physical exam: General: Alert, Cooperative, No apparent distress, Down syndrome facies HEENT: Atraumatic Oral: Moist Mucosa Neck: Supple Lungs: Clear to auscultation Cardiovascular: HS I+II, regular, no murmurs Abdomen: Bowel Sounds Present, Soft, Non Tender Extremities: No edema Assessment & Plan Assessment/Plan (1) Arthritis of left ankle: (2) Adult failure to thrive: PLAN: 1. Debility, patient with Down syndrome. Mother unable to take care of Awaiting discharge planning from [facility] 2. Acute left knee arthritis, appears improved. 3. Rest of his chronic medical conditions including GERD, asthma, hypothyroidism, migraines DVT of the left extremities remained stable. Home meds reviewed 4. DVT prophylaxis?on Xarelto Charges/Coding Visit Charges Inpatient E&M: 74317 Subs Hosp L2
[2022-01-12] MEDS: Rivaroxaban 20 MG Tablet PO (10:40)
[2022-01-12] MEDS: Pantoprazole Sodium 40 MG Tablet PO ×2 (10:40→19:52)
[2022-01-12] MEDS: Levothyroxine 25 MCG TABLET PO (10:40)
[2022-01-12] MEDS: Topiramate 25 MG Tablet PO ×2 (10:40→19:52)
[2022-01-12] MEDS: Rizatriptan Benzoate 10 MG Tablet PO (11:34)
[2022-01-12 13:15] VITALS: O2SAT 99
--- NOTE | 2022-01-12 13:30 | CASEMGMT ---
Social Work Note MICHAEL spoke with Michaela from [facility] asking for copy of pt's COVID vaccination card. MICHAEL informed Michaela that this worker will have to ask pt's mother for copy of card. MICHAEL in to speak with pt's mother Aniya. MICHAEL informed Aniya that approval from Board of DD is still needed. MICHAEL asked Aniya for pt's COVID vaccination card so this worker can make copy and send to [facility]. MICHAEL handed COVID vaccination card. MICHAEL made copy and faxed to [facility]. MICHAEL provided original back to Aniya. MICHAEL faxed updated clinicals to [facility]. Plan: [facility] when approval from Board of DD is obtained. Jolly Gomez FEED PROJECT ENGINEER, SUPERVISOR LUMP ROOM
--- NOTE | 2022-01-12 13:55 | CASEMGMT ---
Social Work Note MICHAEL received message from Jadyn Garcia at [facility] Board of DD stating she will be emailing this worker a list of additional documentation that is needed for pt's PAS/RR. MICHAEL checked email. Jadyn is requesting progress notes and PT/OT. ext: [phone] . MICHAEL faxed requested documents to Jadyn. MICHAEL also uploaded additional documents on [email or web address] system and emailed Jadyn that requested documents. Jadyn states that she is out of the office today, will submit PAS/RR to [facility] tomorrow to review. Plan: [facility] pending approval from Board of DD Jolly Gomez BULK DRIVER, DIRECTOR ORACLE DATABASE
[2022-01-12 13:57] VITALS: BP 104/61; PULSE 81; RESP 18; TEMP 37; O2SAT 98
[2022-01-12] MEDS: oxyCODONE 5 MG Tablet PO (19:51)
[2022-01-12 19:59] VITALS: BP 118/66; PULSE 73; RESP 18; TEMP 36.9; O2SAT 96
[2022-01-13 02:00] VITALS: BP 109/74; PULSE 98; RESP 18; TEMP 36.4; O2SAT 99
[2022-01-13 07:49] VITALS: BP 113/63; PULSE 71; RESP 18; TEMP 36.6; O2SAT 100
[2022-01-13] MEDS: Levothyroxine 25 MCG TABLET PO (09:14)
[2022-01-13] MEDS: Topiramate 25 MG Tablet PO ×2 (09:14→20:25)
[2022-01-13] MEDS: Multivitamins,Ther W-Minerals Tablet 1 TABLET PO (09:14)
[2022-01-13] MEDS: Pantoprazole Sodium 40 MG Tablet PO ×2 (09:14→20:25)
[2022-01-13] MEDS: Rivaroxaban 20 MG Tablet PO (09:15)
--- NOTE | 2022-01-13 09:47 | PCM.PN.HOSP ---
Subjective Subjective Follow-up on chronic debility/left knee arthritis: Patient was seen and examined. No acute events overnight. Complains of cough. Not on oxygen. Miranda catheter remains in situ. Objective Data Objective Data Vital Signs: Vital Signs Temp Pulse Resp BP Pulse Ox 97.8 F 71 18 113/63 100 01/13/22 07:49 01/13/22 07:49 01/13/22 07:49 01/13/22 07:49 01/13/22 07:49 Oxygen Delivery Method Room Air Weight: 71.5 kg Body Mass Index (BMI) 27.9 Intake & Output: Intake and Output for Last 24 Hours 01/11/22 01/12/22 01/13/22 23:59 23:59 23:59 Intake Total 1450 / 1450 1800 / 1920 120 / 120 Output Total 1200 / 1200 2050 / 2475 675 / 675 Balance 250 / 250 -250 / -555 -555 / -555 Lab / Micro Data Result Diagrams: 01/12/22 05:16 01/12/22 05:16 Micro: Microbiology 01/07/22 18:10 Nasal Secretion SARS-CoV-2 Antigen (Rapid) - Final Physical Exam Narrative Physical exam: General: Alert, Cooperative, No apparent distress, Down syndrome facies HEENT: Atraumatic Oral: Moist Mucosa Neck: Supple Lungs: Clear to auscultation Cardiovascular: HS I+II, regular, no murmurs Abdomen: Bowel Sounds Present, Soft, Non Tender, urine in Miranda catheter is clear Extremities: No edema Assessment & Plan Assessment/Plan (1) Arthritis of left ankle: (2) Adult failure to thrive: PLAN: 1. Debility, patient with Down syndrome. Mother unable to take care of Awaiting discharge planning from [facility] -awaiting approval from the board 2. Acute left knee arthritis, appears improved. 3. Urinary retention status post Miranda catheter, will start on Flomax, plan to DC Miranda catheter tomorrow 4. Rest of his chronic medical conditions including GERD, asthma, hypothyroidism, migraines DVT of the left extremities remained stable. Home meds reviewed 5. DVT prophylaxis?on Xarelto Charges/Coding Visit Charges Inpatient E&M: 80501 Subs Hosp L2
[2022-01-13] MEDS: Fluticasone 0.05% 1 SPRAY NASAL.SRY 2 SPRAY NASAL (10:04)
--- NOTE | 2022-01-13 10:51 | CASEMGMT ---
Addendum entered by Jolly Gomez 01/13/22 16:06: MICHAEL checked [employer] system, no determination has been made yet. Original Note: Social Work Note SW checked HENS system, no determination has been made yet. Jolly Gomez SLEEPING ROOM CLEANER, CORPORATE PLANNER
[2022-01-13 13:42] VITALS: BP 106/65; PULSE 65; RESP 18; TEMP 36.4; O2SAT 95
[2022-01-13] MEDS: Tamsulosin HCl 0.4 MG Capsule PO ×2 (13:43→17:36)
[2022-01-13 17:30] VITALS: BP 105/53; PULSE 76; RESP 18; TEMP 36.6; O2SAT 100
[2022-01-13 20:21] VITALS: BP 95/57; PULSE 85; RESP 16; TEMP 36.7; O2SAT 100
[2022-01-14 02:30] VITALS: BP 119/74; PULSE 93; RESP 18; TEMP 36.6; O2SAT 97
[2022-01-14 08:09] VITALS: BP 116/71; PULSE 69; RESP 16; TEMP 36.3; O2SAT 98
[2022-01-14] MEDS: Pantoprazole Sodium 40 MG Tablet PO ×2 (09:12→20:11)
[2022-01-14] MEDS: Multivitamins,Ther W-Minerals Tablet 1 TABLET PO (09:14)
[2022-01-14] MEDS: Rivaroxaban 20 MG Tablet PO (09:15)
[2022-01-14] MEDS: Topiramate 25 MG Tablet PO ×2 (09:15→20:11)
--- NOTE | 2022-01-14 09:15 | CASEMGMT ---
Addendum entered by Jolly Gomez 01/14/22 16:15: SW checked [employer], no determination has been made from [facility]. Addendum entered by Jolly Gomez 01/14/22 13:03: SW checked [employer] website, no determination has been made from [facility]. Original Note: Social Work Note SW checked [employer], no determination has been made from [facility]. Jolly Gomez DOPE FIRER, KETTLE SKIMMER
[2022-01-14] MEDS: guaiFENesin 600 MG Tablet PO (09:18)
[2022-01-14] MEDS: Fluticasone 0.05% 1 SPRAY NASAL.SRY 2 SPRAY NASAL (09:18)
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
--- NOTE | 2022-01-14 11:03 | PN.HOSP_ITS ---
Subjective Subjective Follow-up on chronic debility/left knee arthritis: Patient was seen and examined. Complains of sputum production. Not on oxygen, not in respiratory distress. Looks very comfortable. Objective Data Objective Data Vital Signs: Vital Signs Temp Pulse Resp BP Pulse Ox 97.4 F L 69 16 116/71 98 01/14/22 08:09 01/14/22 08:09 01/14/22 08:09 01/14/22 08:09 01/14/22 08:09 Oxygen Delivery Method Room Air Weight: 71.5 kg Body Mass Index (BMI) 27.9 Intake & Output: Intake and Output for Last 24 Hours 01/12/22 01/13/22 01/14/22 23:59 23:59 23:59 Intake Total 1800 / 1920 770 / 770 Output Total 2050 / 5 1925 / 2124 350 / 350 Balance -250 / -555 -1155 / -1355 -350 / -350 Lab / Micro Data Result Diagrams: 01/12/22 05:16 01/12/22 05:16 Micro: Microbiology 01/07/22 18:10 Nasal Secretion SARS-CoV-2 Antigen (Rapid) - Final Physical Exam Narrative Physical exam: General: Alert, Cooperative, No apparent distress, Down syndrome facies HEENT: Atraumatic Oral: Moist Mucosa Neck: Supple Lungs: Clear to auscultation Cardiovascular: HS I+II, regular, no murmurs Abdomen: Bowel Sounds Present, Soft, Non Tender, urine in Miranda catheter is clear Extremities: No edema Assessment & Plan Assessment/Plan (1) Arthritis of left ankle: (2) Adult failure to thrive: PLAN: 1. Debility, patient with Down syndrome. Mother unable to take care of Awaiting discharge planning from [facility] -awaiting approval from the board 2. Acute left knee arthritis, appears improved. 3. Urinary retention status post Miranda catheter, Continue on Flomax, Miranda catheter to be removed today 4. Rest of his chronic medical conditions including GERD, asthma, hypothyroidism, migraines DVT of the left extremities remained stable. Home meds reviewed 5. DVT prophylaxis?on Xarelto Charges/Coding Visit Charges Inpatient E&M: 87738 Subs Hosp L2
[2022-01-14 14:00] VITALS: BP 108/71; PULSE 81; RESP 16; TEMP 36.5; O2SAT 99
[2022-01-14] MEDS: Tamsulosin HCl 0.4 MG Capsule PO (16:57)
[2022-01-14 20:01] VITALS: BP 103/64; PULSE 76; RESP 18; TEMP 36.4; O2SAT 98
[2022-01-14] MEDS: Acetaminophen 325 MG Tablet 650 MG PO (20:11)
[2022-01-15 02:00] VITALS: BP 101/65; PULSE 82; RESP 18; TEMP 36.9; O2SAT 100
[2022-01-15 08:28] VITALS: BP 100/52; PULSE 78; RESP 18; TEMP 37.1; O2SAT 98
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
[2022-01-15] MEDS: Multivitamins,Ther W-Minerals Tablet 1 TABLET PO (10:13)
[2022-01-15] MEDS: Pantoprazole Sodium 40 MG Tablet PO (10:13)
[2022-01-15] MEDS: Rivaroxaban 20 MG Tablet PO (10:13)
[2022-01-15] MEDS: Fluticasone 0.05% 1 SPRAY NASAL.SRY 2 SPRAY NASAL (10:14)
[2022-01-15] MEDS: Topiramate 25 MG Tablet PO (10:14)
[2022-01-15] MEDS: Menthol/Lanolin/Calamine/Znox 113 GM Tube 1 APPLIC TOPICAL (10:23)
--- NOTE | 2022-01-15 10:55 | CASEMGMT ---
Social Work Note SW received email from Jadyn at [facility] Board of DD stating [facility] approved SNF for pt. Once approval level is uploaded, Jadyn will email this worker the approval letter. MICHAEL placed a call to [facility] and spoke with Michaela. MICHAEL updated Michaela that pt was approved by [facility] for SNF and pt will be discharged to [facility] today. Michaela states understanding, states that pt will need another COVID test. MICHAEL checked [employer] website, it states pt was approved but the approval letter has not been uploaded yet. MICHAEL will print off approval letter once uploaded. Jolly Gomez EDITOR SCHOOL PHOTOGRAPH, ENTERPRISE SERVICES MANAGER
--- NOTE | 2022-01-15 13:15 | PCM.TXEXTCAR ---
Diet 01/07/22 13:27 Diet: Regular - General Food consistency:: Regular Liquid Consistency:: Regular/Thin Is pt able to select menu?: No Routine Orders/Code Status Keep PO Greater than or Equal to (%): 94 Routine Lab Work: CBC (within 3 days) and BMP (within 3 days) Code Status: DNRCC-A Therapies Weight Bearing: Weight bearing as tolerated Physical Therapy: Eval and Treat Occupational Therapy: Eval and Treat Problem/Diagnosis (1) Arthritis of left ankle: Status: Acute (2) Adult failure to thrive: Status: Acute Allergies/Procedures Done in Hospital Allergies house dust Allergy (Mild, Verified 01/07/22 10:05) sinus Procedures: None Type of Care/Length of Stay Estimated LOS: More Than 30 Days Type of Care Needed: Skilled Rehab Potential: Good Prognosis: Good Additional Orders/Day of Discharge Day of Discharge: 01/15/22 Dietary and Speech Recommendations Dietitian Recommendations/Changes: Continue regular diet as ordered. Offer ONS as needed if PO fails at meals. Assess any new weights as available. Discharge Plan Admission Admit Date/Time: 01/07/22 11:57 Primary Reason for Your Visit: Debility Attending Provider: Allyson Lofton Primary Care Provider: Willard Delgadillo Chi Instructions Additional Instructions / Restrictions: Patient will need repeat TSH in 4-6 weeks. Discharge Orders/Prescriptions Prescriptions: New tamsulosin 0.4 mg Capsule 0.4 mg PO DAILY@1730 30 Days RF: 0 Continued pantoprazole 40 mg tablet,delayed release (DR/EC) 40 tab PO BID RF: 0 rizatriptan 10 mg tablet See Rx Instructions PO .COMPLEX Qty: 9 RF: 2 rivaroxaban 20 MG tablet 20 mg PO DAILY RF: 0 multivitamin with minerals 1 EACH tablet 1 tab PO DAILY RF: 0 topiramate 25 mg tablet 25 mg PO BID RF: 0 Discontinued levothyroxine 25 mcg tablet 25 mcg PO DAILY RF: 0 No Action (DME) Lightweight Wheelchair See Rx Instructions .Route .MEDSUPPLY Qty: 1 RF: 0 Referrals / Follow Up: Willard Delgadillo Chi, MD [Primary Care Provider] - Within 2 Weeks Disposition Discharge Orders: Discharge Patient (Routine); Ordered 01/15/22 Ordered By: Dr. Allyson Lofton
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
[2022-01-15 13:56] VITALS: BP 94/60; PULSE 59; RESP 18; TEMP 36.7; O2SAT 100
--- NOTE | 2022-01-15 15:00 | CASEMGMT ---
Social Work Note MICHAEL checked [employer] website, approval letter from [facility] is uploaded. MICHAEL printed off letter. MICHAEL updated physician. Pt to discharge to [facility] skilled today. MICHAEL faxed completed discharge paperwork to [facility] including transfer to extended care facility, signed medication list, any scripts, COVID test/tool, PAS/RR, PAS/RR results, and Approval Letter from [facility]. Original in SNF folder and copy on pt's chart. MICHAEL spoke with RN. Pt to transport via cot. MICHAEL accessed trip assist and arranged transportation via cot for 4:00pm. Transportation form completed and placed on SNF folder and copy on pt's chart. RN updated. SW in to speak with pt's mother and THELMA Kwan. MICHAEL updated Aniya that approval from [facility] of DD has been obtained, pt to discharge to [facility] today at 4:00pm. Aniya states understanding, agreeable to plan. Aniya states she is not sure where facility is, plans to follow transportation to SNF. MICHAEL placed a call to [facility] and spoke with Michaela. MICHAEL updated Michaela on transportation time and that pt's mother Aniya plans on following transportation to [facility]. Michaela states understanding. MICHAEL placed a call to pt's CM through [employer] of [employer] Monique Rojo and left message that pt discharged to [facility] today. Plan: [facility] skilled today under PAS/RR with Physician's transporting pt via cot at 4:00pm. [facility] approved SNF level of care for pt. Jolly Gomez ROTARY SWAGING MACHINE OPERATOR, FIXER BOARDING ROOM
--- NOTE | 2022-01-15 15:19 | NURSING ---
report called to Chari at [facility]
[2022-01-15] MEDS: Acetaminophen 325 MG Tablet 650 MG PO (15:43)
[2022-01-15 15:48] VITALS: BP 101/54; PULSE 80; RESP 18; TEMP 36.6; O2SAT 99
--- NOTE | 2022-01-15 16:23 | NURSING ---
verbal report given to transport
== END 2022-01-15 16:25 | disposition skilled nursing facility (03) ==
LOC: ED 11:55 → MS3 12:07
PROVIDERS: Admitting Provider Student in an Organized Health Care Education/Training Program; Emergency Provider Emergency Medicine; PCP Family Medicine Geriatric Medicine; Visit Provider Internal Medicine
DX: M19.072 Primary osteoarthritis, left ankle and foot (principal); R62.7 Adult failure to thrive; R53.81 Other malaise; Q90.9 Down syndrome, unspecified; R26.2 Difficulty in walking, not elsewhere classified; E03.9 Hypothyroidism, unspecified; M17.12 Unilateral primary osteoarthritis, left knee; Z79.899 Other long term (current) drug therapy; Z79.890 Hormone replacement therapy; Z79.01 Long term (current) use of anticoagulants; R33.9 Retention of urine, unspecified
CPT/HCPCS: 36415; 71045; 73564; 80048; 80053; 85025; 87426; 96360; 96361; 97110; 97162; 97166; 97530; 97535; 97802; 99218; 99285; J7030; A4216; G0378

== ENCOUNTER → 2022-01-18 | Outpatient (REF) | payer MEDICARE, MEDICAID, SELFPAY ==
[2022-01-18 09:23] LABS: Hematocrit 34.8 % (40-54); Hemoglobin 11.5 g/dL (13.0-16.5); Mean Corpuscular Hgb 34.8 pg (27.0-32.0); Mean Corpuscular Volume 105.5 fL (80-94); Mean Platelet Vol. 10.2 fl (6.2-12.0); Platelet Count 334 K/mm3 (150-450); RBC Distribution Width CV 13.4 % (11.6-14.6); RBC Distribution Width SD 52.5 fl (35.1-43.9); White Blood Count 5.6 K/mm3 (4.4-11.0)
[2022-01-18 09:53] LABS: Anion Gap 8 (5-15); BUN 10 mg/dL (7-18); BUN/Creat Ratio 11.8 RATIO (10-20); Calcium,Total 8.2 mg/dL (8.5-10.1); Chloride 105 mmol/L (98-107); Creatinine, Serum 0.85 mg/dL (0.70-1.30); EST Glomerular Filtration Rate 98 mL/min (>60); Est Glom Filt Rate - Afr Amer 118 mL/min (>60); Glucose 101 mg/dL (74-106); Potassium 3.7 mmol/L (3.5-5.1); Sodium Level 137 mmol/L (136-145); Thyroid Stim Hormone (TSH) 3.03 uIU/mL (0.358-3.74)
== END | disposition home or self-care (01) ==
LOC: OLS.WCC 05:00
PROVIDERS: PCP Family Medicine Geriatric Medicine; Visit Provider Family Medicine
DX: E03.9 Hypothyroidism, unspecified (principal)
CPT/HCPCS: 36415; 80048; 84443; 85027

== ENCOUNTER → 2022-02-11 | Outpatient (REF) | payer MEDICARE, MEDICAID, SELFPAY ==
[2022-02-11 07:54] LABS: Hematocrit 32.8 % (40-54); Hemoglobin 11.9 g/dL (13.0-16.5); Mean Corp Hgb Conc 36.3 g/dL (32-36); Mean Corpuscular Hgb 35.2 pg (27.0-32.0); Mean Platelet Vol. 10.2 fl (6.2-12.0); Platelet Count 288 K/mm3 (150-450); RBC Distribution Width CV 12.9 % (11.6-14.6); RBC Distribution Width SD 46.4 fl (35.1-43.9); Red Blood Count 3.38 M/mm3 (4.6-6.2); White Blood Count 16.2 K/mm3 (4.4-11.0)
[2022-02-11 07:58] LABS: Erythrocyte Sedimentation Rate 50 mm/hr (0-20)
[2022-02-11 08:21] LABS: Anion Gap 8 (5-15); BUN 12 mg/dL (7-18); BUN/Creat Ratio 17.9 RATIO (10-20); Calcium,Total 8.3 mg/dL (8.5-10.1); Chloride 91 mmol/L (98-107); Creatinine, Serum 0.67 mg/dL (0.70-1.30); EST Glomerular Filtration Rate 128 mL/min (>60); Est Glom Filt Rate - Afr Amer 155 mL/min (>60); Glucose 127 mg/dL (74-106); Potassium 3.7 mmol/L (3.5-5.1); Sodium Level 124 mmol/L (136-145); Thyroid Stim Hormone (TSH) 2.54 uIU/mL (0.358-3.74)
== END | disposition home or self-care (01) ==
LOC: OLS.WCC 04:00
PROVIDERS: PCP Family Medicine Geriatric Medicine; Referring Provider Family Medicine; Visit Provider Family Medicine
DX: R53.83 Other fatigue (principal); R53.81 Other malaise; R06.2 Wheezing
CPT/HCPCS: 36415; 80048; 84443; 85027; 85652

== ENCOUNTER → 2022-02-15 | Outpatient (REF) | payer MEDICARE, MEDICAID, SELFPAY ==
[2022-02-15 08:07] LABS: Absolute Lymphocyte Count 1.43 X10^3/uL (0.83-4.51); Absolute Neutrophil Count 15.8 X10^3/uL (2.0-7.7); Basophil# 0.02 X10^3/uL; Basophil% 0.1 % (0-1); Hematocrit 35.4 % (40-54); Hemoglobin 12.1 g/dL (13.0-16.5); Lymphocyte # 1.43 X10^3/ul (0.83-4.51); Lymphocyte % 7.4 % (19-41); Mean Corp Hgb Conc 34.2 g/dL (32-36); Mean Corpuscular Hgb 34.6 pg (27.0-32.0); Mean Corpuscular Volume 101.1 fL (80-94); Mean Platelet Vol. 10.5 fl (6.2-12.0); Monocyte# 1.78 X10^3/uL; Monocyte% 9.2 % (0-10); NRBC Flagged by Analyzer 0 % (0-5); Neutrophil % 82.2 % (47-70); POSITIVE DIFFERENTIAL YES; Platelet Count 268 K/mm3 (150-450); RBC Distribution Width CV 13.9 % (11.6-14.6); White Blood Count 19.3 K/mm3 (4.4-11.0)
[2022-02-15 08:08] LABS: Differential Indicated SCAN CRITERIA MET
[2022-02-15 08:27] LABS: Anion Gap 7 (5-15); BUN 11 mg/dL (7-18); BUN/Creat Ratio 19.2 RATIO (10-20); Calcium,Total 7.7 mg/dL (8.5-10.1); Chloride 99 mmol/L (98-107); Creatinine, Serum 0.57 mg/dL (0.70-1.30); EST Glomerular Filtration Rate 154 mL/min (>60); Est Glom Filt Rate - Afr Amer 186 mL/min (>60); Glucose 121 mg/dL (74-106); Potassium 3.9 mmol/L (3.5-5.1); Sodium Level 132 mmol/L (136-145)
[2022-02-15 12:34] LABS: Pathologist Review Reviewed
[2022-02-16 05:12] LABS: Thyroid Stim Hormone (TSH) 2.52 uIU/mL (0.358-3.74)
== END | disposition home or self-care (01) ==
LOC: OLS.WCC 05:00
PROVIDERS: PCP Family Medicine Geriatric Medicine; Visit Provider Family Medicine
DX: E03.9 Hypothyroidism, unspecified (principal); R53.83 Other fatigue
CPT/HCPCS: 36415; 80048; 84443; 85025

== ENCOUNTER → 2022-02-22 | Outpatient (REF) | payer MEDICARE, MEDICAID, SELFPAY ==
[2022-02-22 09:24] LABS: Hematocrit 28.6 % (40-54); Hemoglobin 9.7 g/dL (13.0-16.5); Mean Corp Hgb Conc 33.9 g/dL (32-36); Mean Corpuscular Hgb 33.6 pg (27.0-32.0); Mean Platelet Vol. 10.4 fl (6.2-12.0); Platelet Count 229 K/mm3 (150-450); RBC Distribution Width CV 14.3 % (11.6-14.6); RBC Distribution Width SD 51.6 fl (35.1-43.9); Red Blood Count 2.89 M/mm3 (4.6-6.2); White Blood Count 19.1 K/mm3 (4.4-11.0)
[2022-02-22 09:32] LABS: Anion Gap 5 (5-15); BUN 6 mg/dL (7-18); BUN/Creat Ratio 8.5 RATIO (10-20); Calcium,Total 7.2 mg/dL (8.5-10.1); Chloride 102 mmol/L (98-107); EST Glomerular Filtration Rate 121 mL/min (>60); Est Glom Filt Rate - Afr Amer 147 mL/min (>60); Glucose 146 mg/dL (74-106); Potassium 3.3 mmol/L (3.5-5.1); Sodium Level 132 mmol/L (136-145)
== END | disposition home or self-care (01) ==
LOC: OLS.WCC 05:00
PROVIDERS: PCP Family Medicine Geriatric Medicine; Visit Provider Family Medicine
DX: R53.83 Other fatigue (principal); E03.9 Hypothyroidism, unspecified
CPT/HCPCS: 36415; 80048; 85027

== ENCOUNTER 2022-02-23 12:41 | Outpatient (CLI) | payer MEDICARE, MEDICAID, SELFPAY ==
--- NOTE | 2022-02-23 15:04 | SP.MBSS_ITS ---
Modified Barium Swallow - Patient Information Study Date: 02/23/22 Study Time: 13:00 Direct Billable Minutes: 140 Total Minutes procedure & reportin Diagnosis: Pneumonia (J18.9) Referring Physician: Salvador Rosa Reason for Referral: Objectively assess swallow function, risk for aspiration, and determine recommendations for least restrictive diet textures and compensatory strategies to improve safety of swallow. Medical History: The patient is a 61-year-old male resident of [facility] with PMH including anxiety, Down syndrome, oropharyngeal dysphagia, asthma, GERD, and adult failure to thrive. He currently has PNA and is being treated with Zosyn via IV. He typically takes medications whole by mouth. He is on a mechanical soft diet / thin liquids. His PLASTIC SHEETS FINISHING SUPERVISOR, Radha, reports occasional to frequent coughing and throat clearing before and after swallows of all textures and consistencies. He also often experiences belching with liquids. His intake has been poor and complaints of occasional stomach pain. He was referred for MBS study to objectively assess swallow function and aspiration risk. Tahira SIBLEY, and Scott SANTORO, present for the study. Current Diet Ordered: Mechanical soft textures / Thin liquids Dentition: Natural Teeth Mental Status: Impaired - History of Down Syndrome. Able to follow commands throughout assessment. Respiratory Status: Oxygenating on 2L/M nasal cannula - Penetration-Aspiration Scale Penetration-Aspiration Scale: OBJECTIVE ASSESSMENT OF SWALLOW FUNCTION (QUANTITATIVE ? PER TRIAL): PENETRATION / ASPIRATION SCALE (JIM): 1 = does not enter airway 2 = enters airway/above vocal folds/ejected 3 = enters airway/above vocal folds/not ejected 4 = enters airway/contacts vocal folds/ejected 5 = enters airway/contacts vocal folds/not ejected 6 = enters airway/below vocal folds/ejected 7 = enters airway/below vocal folds/not ejected despite effort 8 = enters airway/below vocal folds/no effort VIDEOFLOROSCOPIC SCALE SCORE (JIM): Grade I = aspiration of material that has penetrated into the laryngeal vestibule, intact cough reflex Grade II = aspiration < 10 % of the bolus, intact cough reflex Grade III = aspiration of < 10 % of the bolus, reduced cough reflex or aspiration of > 10 % of the bolus, intact cough reflex Grade IV = aspiration of > 10 % of the bolus, reduced cough reflex - Penetration-Aspiration Scale Score Thin Liquid via single sip from straw Comment: Could not score. Despite extended time and several efforts, the patient was unable to achieve adequate suction for sip via straw. Thin Liquid via teaspoon Result: 3= enters airways/above vocal folds/not ejected Thin Liquid via small single sip from cup Result: 1= does not enter airway Thin Liquid via small single sip from cup Trial 2 Result: 3= enters airways/above vocal folds/not ejected Comment: PLASTIC SHEETS FINISHING SUPERVISOR cued cough and re-swallow to clear laryngeal vestibule. Trace lining of residue in laryngeal vestibule after cough reflex. [place] Thick Liquid via teaspoon Result: 1= does not enter airway [place] Thick Liquid via small single sip from cup Result: 2= enter airway/above vocal folds/ejected Honey Thick Liquid via teaspoon Result: 3= enters airways/above vocal folds/not ejected Pudding via teaspoon Result: 2= enter airway/above vocal folds/ejected Comment: Post prandial penetration of honey thick liquid residue to the vocal folds without full ejection from the laryngeal vestibule with reflexive cough. 1/4 Chasidy Doone Cookie coated in pudding Result: 1= does not enter airway Thin Liquid via single sip from straw Trial 2 Comment: Could not score. Despite extended time and several efforts, the patient was unable to achieve adequate suction for sip via straw. Thin Liquid via teaspoon Trial 2 Result: 1= does not enter airway Thin Liquid via teaspoon Trial 3 Result: 1= does not enter airway Thin Liquid via small single sip from cup Trial 3 Result: 2= enter airway/above vocal folds/ejected Pudding via teaspoon Trial 2 Result: 3= enters airways/above vocal folds/not ejected Thin Liquid via small single sip from cup Trial 4 Result: 5= enters airways/contacts vocal folds/not ejected Comment: Could not rule out aspiration due to pt's body habitus. [place] Thick Liquid via small single sip from cup Trial 2 Result: 5= enters airways/contacts vocal folds/not ejected Comment: Residue from previous trial present on the vocal folds and lining the laryngeal vestibule prior to swallow onset. Reflexive coughing cleared contrast from the vocal folds but trace residue still lining the laryngeal vestibule. - Oral Phase Labial Seal: Escape progressing to mid-chin Tongue Control During Bolus Hold: Posterior escape of less than half of bolus Bolus Preparation/Mastication: Disorganized chewing/mashing with solid pieces of bolus unchewed Bolus Transport/Lingual Motion: Repetitive/disorganized tongue motion Oral Residue: Residue collection on oral structures - Pharyngeal Phase Initiation of Pharyngeal Swallow: Bolus head in pyriforms Soft Palate Elevation: Trace column of contrast/air between soft palate and pharyngeal wall Laryngeal Elevation: Partial superior movement thyroid cart/partial apprx aryt- epig petiole Anterior Hyoid Excursion: Partial anterior movement Epiglottic Movement: Partial inversion Laryngeal Vestibule Closure at Height of Swallow: Incomplete; narrow column of air/contrast in laryngeal vestibule Pharyngeal Stripping Wave: Present - diminished Pharyngoesophageal Segment Opening: Parital distension and partial duration; parital obstruction of flow Tongue Base Retraction: Wide column of contrast between tongue base & post. pharyngeal wall Pharyngeal Residue: Collection of residue within or on pharyngeal structures - Esophageal Phase Esophageal Clearance: Complete clearance - Treatment Strategies Effects of treatment strategies attemped:: Multiple swallows (completed independently by pt with thicker viscosities especially) = Somewhat effective. Liquid wash = Somewhat effective. Cough and re-swallow = Somewhat effective. - Diagnosis/Impression Diagnosis: Oropharyngeal phase dysphagia (R13.12) Impression: The oral phase is marked by slowed mastication, disorganized tongue motion for A-P transport (lingual pumping), and mild oral residue after the swallow for 1/4 cookie trial. He also presented with decreased bolus control with premature posterior loss of bolus to the pyriforms prior to swallow onset, especially noted with certain thin liquid trials. The pharyngeal phase is marked by decreased airway closure during the swallow and moderate pharyngeal residues after the swallow. He presents with decreased anterior hyoid excursion and laryngeal elevation with resulting decreased airway closure during the swallow. Moderate pharyngeal residues were evident with thickened liquid viscosities, pudding, and cookie boluses due to decreased tongue base retraction and pharyngeal contraction during the swallow. The patient demonstrated post prandial penetration to the vocal folds of honey thick residue. The patient demonstrated laryngeal penetration of thin liquids via cup to the vocal folds. Could not definitively rule out aspiration due to pt's body habitus. The patient is at HIGH risk to aspirate pharyngeal residues after the swallow, as well as residues remaining in the laryngeal vestibule after the swallow (SEE full PAS scores above for details). - Recommendations Diet: Mechanical Soft Textures - Minced and Moist Textures (IDDSI Level 5), Thin Liquids Comment: Encourage intermittent use of cough and re-swallow throughout the meal. Compensatory Strategies: Small Bites, Small Sips, Liquid by Teaspoon Only, Slow Rate, Alternate bites/solids and sips/liquids, Sitting upright, Remain sitting u pright for 30 minutes after PO intake Supervision: Assist as needed - Assist feeding as needed to ensure use of strategies to decrease aspiration risk., 1:1 Close Supervision Recommend Repeat Modified Barium Swallow: TBD Need for Skilled Speech Therapy Services: Yes Comment: Will recommend the patient for continued dysphagia therapy to address deficits in oropharyngeal swallow function. Would consider the patient for oropharyngeal strengthening to improve lingual coordination, laryngeal elevation, pharyngeal contraction, and tongue base retraction. The patient would benefit from thorough education and training regarding diet recommendations and recommended compensatory strategies. If deemed appropriate by the patient's PLASTIC SHEETS FINISHING SUPERVISOR, would consider the patient for implementation of [place] Free Water Protocol (FFWP) via cup or straw to encourage hydration and promote increased opportunities for swallowing throughout the patient?s day. Education Completed: 1. Described result of evaluation., 7. Pt requires further education on strategies & risks. - Status Active ST Patient: Active - Contact Information [facility] Speech Therapy:: Taylor Nicolas M.A. [facility]-PLASTIC SHEETS FINISHING SUPERVISOR Speech-Language Pathologist [facility] [address] [place] [address] [email or web address] [phone] 02/23/22 15:48
== END 2022-02-23 23:59 | disposition home or self-care (01) ==
LOC: RAD 12:45
PROVIDERS: PCP Family Medicine Geriatric Medicine; Referring Provider Family Medicine; Visit Provider Family Medicine
DX: R05.9 Cough, unspecified (principal)
CPT/HCPCS: 74230; 92611

== ENCOUNTER → 2022-02-25 | Outpatient (REF) | payer MEDICARE, MEDICAID, SELFPAY ==
[2022-02-25 08:20] LABS: Absolute Lymphocyte Count 1.02 X10^3/uL (0.83-4.51); Absolute Neutrophil Count 12.5 X10^3/uL (2.0-7.7); Basophil# 0.04 X10^3/uL; Basophil% 0.3 % (0-1); Eosinophil# 0.05 X10^3/uL; Eosinophils% 0.3 % (0-5); Hematocrit 29.5 % (40-54); Hemoglobin 9.7 g/dL (13.0-16.5); Lymphocyte # 1.02 X10^3/ul (0.83-4.51); Lymphocyte % 6.9 % (19-41); Mean Corp Hgb Conc 32.9 g/dL (32-36); Mean Corpuscular Hgb 33.7 pg (27.0-32.0); Mean Corpuscular Volume 102.4 fL (80-94); Monocyte# 1.14 X10^3/uL; Monocyte% 7.7 % (0-10); NRBC Flagged by Analyzer 0 % (0-5); Neutrophil % 83.9 % (47-70); Platelet Count 291 K/mm3 (150-450); RBC Distribution Width CV 14.6 % (11.6-14.6); RBC Distribution Width SD 54.7 fl (35.1-43.9); Red Blood Count 2.88 M/mm3 (4.6-6.2); White Blood Count 14.9 K/mm3 (4.4-11.0)
== END | disposition home or self-care (01) ==
LOC: OLS.WCC 04:00
PROVIDERS: PCP Family Medicine Geriatric Medicine; Referring Provider Family Medicine; Visit Provider Family Medicine
DX: I82.409 Acute embolism and thrombosis of unspecified deep veins of unspecified lower extremity (principal); E03.9 Hypothyroidism, unspecified; J18.9 Pneumonia, unspecified organism
CPT/HCPCS: 36415; 85025

== ENCOUNTER → 2022-03-03 | Outpatient (REF) | payer MEDICARE, MEDICAID, SELFPAY ==
[2022-03-03 08:44] LABS: Absolute Neutrophil Count 6.4 X10^3/uL (2.0-7.7); Basophil# 0.06 X10^3/uL; Basophil% 0.7 % (0-1); Eosinophil# 0.16 X10^3/uL; Eosinophils% 1.8 % (0-5); Hematocrit 35.6 % (40-54); Hemoglobin 12.1 g/dL (13.0-16.5); Lymphocyte % 14.8 % (19-41); Mean Corpuscular Hgb 33.8 pg (27.0-32.0); Mean Corpuscular Volume 99.4 fL (80-94); Mean Platelet Vol. 11.5 fl (6.2-12.0); Monocyte# 0.76 X10^3/uL; Monocyte% 8.6 % (0-10); NRBC Flagged by Analyzer 0 % (0-5); Neutrophil # 6.42 X10^3/uL (2.7-7.7); Neutrophil % 73.1 % (47-70); Platelet Count 263 K/mm3 (150-450); RBC Distribution Width CV 15.4 % (11.6-14.6); RBC Distribution Width SD 55.6 fl (35.1-43.9); Red Blood Count 3.58 M/mm3 (4.6-6.2); White Blood Count 8.8 K/mm3 (4.4-11.0)
[2022-03-03 08:58] LABS: Anion Gap 9 (5-15); BUN 5 mg/dL (7-18); BUN/Creat Ratio 9.8 RATIO (10-20); Calcium,Total 7.7 mg/dL (8.5-10.1); Chloride 105 mmol/L (98-107); Creatinine, Serum 0.51 mg/dL (0.70-1.30); EST Glomerular Filtration Rate 176 mL/min (>60); Est Glom Filt Rate - Afr Amer 212 mL/min (>60); Glucose 83 mg/dL (74-106); Potassium 4.2 mmol/L (3.5-5.1); Sodium Level 134 mmol/L (136-145)
== END | disposition home or self-care (01) ==
LOC: OLS.WCC 05:00
PROVIDERS: PCP Family Medicine Geriatric Medicine; Visit Provider Family Medicine
DX: E03.9 Hypothyroidism, unspecified (principal); I82.409 Acute embolism and thrombosis of unspecified deep veins of unspecified lower extremity; R05.9 Cough, unspecified; J18.9 Pneumonia, unspecified organism; M17.12 Unilateral primary osteoarthritis, left knee; R33.9 Retention of urine, unspecified; R47.02 Dysphasia
CPT/HCPCS: 36415; 80048; 85025

== ENCOUNTER → 2022-04-05 | Outpatient (REF) | payer MEDICARE, MEDICAID, SELFPAY ==
[2022-04-05 09:14] LABS: Absolute Lymphocyte Count 1.31 X10^3/uL (0.83-4.51); Absolute Neutrophil Count 6.3 X10^3/uL (2.0-7.7); Basophil# 0.06 X10^3/uL; Basophil% 0.7 % (0-1); Eosinophil# 0.08 X10^3/uL; Eosinophils% 0.9 % (0-5); Hematocrit 26.3 % (40-54); Hemoglobin 8.3 g/dL (13.0-16.5); Lymphocyte # 1.31 X10^3/ul (0.83-4.51); Lymphocyte % 15.3 % (19-41); Mean Corp Hgb Conc 31.6 g/dL (32-36); Mean Corpuscular Hgb 32.8 pg (27.0-32.0); Mean Platelet Vol. 10.7 fl (6.2-12.0); Monocyte# 0.77 X10^3/uL; NRBC Flagged by Analyzer 0 % (0-5); Neutrophil # 6.32 X10^3/uL (2.7-7.7); Neutrophil % 73.5 % (47-70); POSITIVE MORPHOLOGY YES; Platelet Count 449 K/mm3 (150-450); RBC Distribution Width CV 18.4 % (11.6-14.6); RBC Distribution Width SD 69.9 fl (35.1-43.9); Red Blood Count 2.53 M/mm3 (4.6-6.2); White Blood Count 8.6 K/mm3 (4.4-11.0)
[2022-04-05 09:15] LABS: Differential Indicated SCAN CRITERIA MET
[2022-04-05 09:30] LABS: Anion Gap 6 (5-15); BUN 16 mg/dL (7-18); BUN/Creat Ratio 21.2 RATIO (10-20); Calcium,Total 7.9 mg/dL (8.5-10.1); Chloride 108 mmol/L (98-107); Creatinine, Serum 0.75 mg/dL (0.70-1.30); EST Glomerular Filtration Rate 112 mL/min (>60); Est Glom Filt Rate - Afr Amer 136 mL/min (>60); Glucose 95 mg/dL (74-106); Potassium 3.6 mmol/L (3.5-5.1); Sodium Level 139 mmol/L (136-145)
[2022-04-05 10:04] LABS: Anisocytosis 1+
== END | disposition home or self-care (01) ==
LOC: OLS.WCC 05:00
PROVIDERS: PCP Family Medicine Geriatric Medicine; Visit Provider Family Medicine
DX: I10 Essential (primary) hypertension (principal); R53.83 Other fatigue; Z79.899 Other long term (current) drug therapy
CPT/HCPCS: 36415; 80048; 85025